=== PATIENT | female | born 1960 | race Caucasian/White ===

== ENCOUNTER 2021-05-19 19:15 | Inpatient (IN) | payer BC ==
[~2021-05-19] VITALS: Ht 162.6 cm; Wt 86.6 kg
[2021-05-19] MEDS ORDERED: ACETAMINOPHEN 325 MG TABLET PO PRN (19:45)
[2021-05-19] MEDS ORDERED: METHYL SALICYLATE/MENTHOL TOPICAL OINTMENT 57GM TUBE. TP PRN (19:45)
[2021-05-19] MEDS ORDERED: MAGNESIUM HYDROXIDE 2,400 MG/30 ML ORAL.SUSP. PO PRN (19:45)
[2021-05-19] MEDS ORDERED: MAG HYDROX/AL HYDROX/SIMETH 30 ML ORAL.SUSP PO PRN (19:45)
[2021-05-19 21:29] LABS: BASO % 0 % (0-3); EOS # 0.2 x10^3/uL (0.0-0.7); EOS % 3 % (0-3); HEMATOCRIT 36.8 % (36.0-47.0); HEMOGLOBIN 12.4 g/dL (12.0-15.5); LYMPH # 2.3 x10^3/uL (1.0-4.8); LYMPH % 29 % (24-48); MEAN CORPUSCULAR HEMOGLOBIN 32 pg (25-35); MEAN CORPUSCULAR HGB CONC 34 g/dL (31-37); MEAN CORPUSCULAR VOLUME 94 fL (79-100); MONO # 0.5 x10^3/uL (0.0-1.1); MONO % 6 % (0-9); NEUT # 4.9 x10^3uL (1.8-7.7); NEUT % 62 % (31-73); PLATELET COUNT 266 x10^3/uL (140-400); RED BLOOD COUNT 3.91 x10^6/uL (3.50-5.40); RED CELL DISTRIBUTION WIDTH 13.2 % (11.5-14.5); WHITE BLOOD COUNT 7.9 x10^3/uL (4.0-11.0)
--- NOTE | 2021-05-19 21:34 | EKG ---
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
[2021-05-19 21:42] LABS: ALBUMIN 3.5 g/dL (3.4-5.0); ALBUMIN/GLOBULIN RATIO 0.9 (1.0-1.7); CALCIUM 9.2 mg/dL (8.5-10.1); CREATININE 1.1 mg/dL (0.6-1.0); GFR 50.7; MAGNESIUM 2.2 mg/dL (1.8-2.4); POTASSIUM 4.1 mmol/L (3.5-5.1); TOTAL BILIRUBIN 0.6 mg/dL (0.2-1.0); TOTAL PROTEIN 7.2 g/dL (6.4-8.2)
[2021-05-19 22:25] VITALS: BP 152/71
[2021-05-19] MEDS ORDERED: DOXY100C3 PO (22:57)
[2021-05-20] MEDS ORDERED: LUMA42CA PO (01:53)
[2021-05-20] MEDS ORDERED: LURA20TA PO (01:53)
[2021-05-20] MEDS ORDERED: CARB1TAB22 PO (01:53)
[2021-05-20] MEDS ORDERED: PRIM50TA24 PO (01:53)
[2021-05-20] MEDS ORDERED: LAMO100T8 PO (01:53)
--- NOTE | 2021-05-20 05:35 | NUR ---
Admission Note with Justification for Admission to [facility] Patient admitted to [facility] for protective oversight for emergency stabilization of acute psychiatric crisis. Pt admitted from: Hospital ER Mode of arrival: EMS Accompanied By: [facility] Staff Precipitating behaviors that initiated intake and admission:Auditory hallucinations (command to harm self), SI attempt, depression, insomnia Description of failure of out patient attempts at stabilization in previous setting list behavior and medication trials: er, mental health evaluation Behaviors and assessment findings upon admission: Calm and cooperative, alert to name, date, location and situation, denies SI/HI/AVH. Pleasant during interactions with staff. Plan: Admit for protective oversight for adjustment and stabilization of medications, behaviors and mood. Intense treatment regimen including groups, medication adjustments, therapy, consistent regimen for ADL's, self care, and sleep hygiene. Daily monitoring by Inpatient staff, Psychiatry, and Medical Physician.
[2021-05-20 06:22] VITALS: BP 165/82
[2021-05-20 10:10] LABS: THYROXINE 10.5 ug/dL (4.5-12.0)
--- NOTE | 2021-05-20 10:22 | NUR ---
Pt has been present and visible on the unit. She appears and presents as well mannered so far today. Absent of SI/HI/VH/AH/delusions. She denies pain when asked. She is very concerned about taking her medications, however nursing needs to obtain med rec verification from her home pharmacy as well as review/continuation from Dr Concepcion during H&P prior to administration. Every time pt sees this nurse she asks about if I talked to pharmacy or the Dr crockett. She requires frequent reassurance regarding her medications. Pt has been absent of disruptive behavior on the unit and her interactions with others have been appropriate. Plan of care continues, will pass to next shift.
[2021-05-20] MEDS ORDERED: PROPRANOLOL PO (11:45)
[2021-05-20] MEDS ORDERED: ASEN10TA9 SL (11:46)
[2021-05-20 15:23] LABS: BILIRUBIN,URINE NEG (NEG); CLARITY,URINE CLEAR; COLOR,URINE YELLOW; GLUCOSE,URINE NEG (NEG); NITRITE,URINE NEG (NEG); UROBILINOGEN,URINE 0.2 mg/dL (0.2 mg/dL)
[2021-05-20 15:25] LABS: BACTERIA,URINE 0 /HPF (0-FEW); SQUAMOUS EPITHELIAL CELL,UR OCC /LPF
[2021-05-20 16:02] VITALS: BP 149/98
--- NOTE | 2021-05-20 17:39 | NUR ---
Pt arrived with a home bottle of Doxycycline 100 mg (18 tablets). Bottle bagged and sent to Pharmacy for holding.
[2021-05-20] MEDS: PRIMIDONE 50 MG TABLET PO SCH (19:50)
[2021-05-20] MEDS: lamoTRIgine 100 MG TABLET. PO SCH (19:50)
[2021-05-20] MEDS: CARBIDOPA/LEVODOPA 25/100MG TABLET PO SCH (19:50)
[2021-05-20] MEDS: DOXYCYCLINE HYCLATE 100 MG TABLET PO SCH (19:51)
[2021-05-20 20:23] LABS: THYROID STIM HORMONE (TSH) 1.27 uIU/mL (0.358-3.740)
[2021-05-20] MEDS: NON FORMULARY ITEM (Asenapine Maleate (Saphris) 10 MG) SL SCH (21:00)
--- NOTE | 2021-05-20 22:13 | PDOC ---
Exam Note: Bran Note: Please also refer to the separate dictated note~for this date of service dictated separately.~Patient seen individually. Discussed the patient with Nursing staff reviewed the chart.~Reviewed interim history and current functioning. Reviewed vital signs,~Labs/ Radiology~and current medications noted below. Continue current treatment with the changes noted in the dictated addendum note Assessment: Vital Signs/I&O: Vital Signs Date Time Temp Pulse Resp B/P (MAP) Pulse Ox O2 Delivery O2 Flow Rate FiO2 05/20/21 16:02 98.5 99 16 149/98 (115) 97 I & O 05/19/21 05/19/21 05/20/21 15:00 23:00 07:00 Intake Total 120 ml Balance 120 ml Labs: Laboratory Tests Test 05/20/21 14:57 Urine Collection Type Void Urine Color Yellow Urine Clarity Clear Urine pH 6.5 Urine Specific [place] 1.020 Urine Protein Neg (NEG-TRACE) Urine Glucose (UA) Neg mg/dL (NEG) Urine Ketones (Stick) Neg mg/dL (NEG) Urine Blood Small (NEG) Urine Nitrite Neg (NEG) Urine Bilirubin Neg (NEG) Urine Urobilinogen Dipstick 0.2 mg/dL (0.2 mg/dL) Urine Leukocyte Esterase Trace (NEG) Urine RBC 1-2 /HPF (0-2) Urine WBC 5-10 /HPF (0-4) Urine Squamous Epithelial Cells Occ /LPF Urine Bacteria 0 /HPF (0-FEW) Current Medications: Meds: Laboratory Tests Test 05/20/21 14:57 Urine Collection Type Void Urine Color Yellow Urine Clarity Clear Urine pH 6.5 Urine Specific [place] 1.020 Urine Protein Neg Urine Glucose (UA) Neg mg/dL Urine Ketones (Stick) Neg mg/dL Urine Blood Small Urine Nitrite Neg Urine Bilirubin Neg Urine Urobilinogen Dipstick 0.2 mg/dL Urine Leukocyte Esterase Trace Urine RBC 1-2 /HPF Urine WBC 5-10 /HPF Urine Squamous Epithelial Cells Occ /LPF Urine Bacteria 0 /HPF Current Medications Medications (Trade) Dose Ordered Sig/Ashley Route PRN Reason Start Time Stop Time Status Last Admin Dose Admin Acetaminophen (Tylenol) 650 mg PRN Q6HRS PRN PO MILD PAIN / TEMP > 100.3'F 05/19/21 19:45 Multi-Ingredient Ointment (Analgesic [place]) 1 rayo PRN QID PRN TP MUSCLE PAIN 05/19/21 19:45 Al Hydroxide/Mg Hydroxide (Mylanta Plus Xs) 15 ml PRN AFTMEALHC PRN PO DYSPEPSIA 05/19/21 19:45 Magnesium Hydroxide (Milk Of Magnesia) 2,400 mg PRN QHS PRN PO CONSTIPATION 05/19/21 19:45 05/19/21 23:53 Carbidopa/Levodopa (Sinemet 25/100) 0.5 tab TID PO 05/20/21 21:00 05/20/21 19:50 Lamotrigine (LaMICtal) 100 mg BID PO 05/20/21 21:00 05/20/21 19:50 Primidone (Mysoline) 100 mg QHS PO 05/20/21 21:00 05/20/21 19:50 Non-Formulary Medication (Asenapine Maleate (Saphris)) 10 mg BID SL 05/20/21 21:00 UNV Non-Formulary Medication (Lumateperone Tosylate (Caplyta)) 42 mg DAILY PO 05/21/21 09:00 UNV Lurasidone HCl (Latuda) 20 mg DAILYWBKFT PO 05/21/21 08:00 Non-Formulary Medication ([propranolol ER] ) 120 mg DAILY PO 05/21/21 09:00 UNV Doxycycline Hyclate (Vibra-Tab) 100 mg BID PO 05/20/21 21:00 05/20/21 19:51 Propranolol HCl (Inderal La) 120 mg DAILY PO 05/21/21 09:00 Current Medications Medications (Trade) Dose Ordered Sig/Ashley Route PRN Reason Start Time Stop Time Status Last Admin Dose Admin Carbidopa/Levodopa (Sinemet 25/100) 0.5 tab TID PO 05/20/21 21:00 05/20/21 19:50 Lamotrigine (LaMICtal) 100 mg BID PO 05/20/21 21:00 05/20/21 19:50 Primidone (Mysoline) 100 mg QHS PO 05/20/21 21:00 05/20/21 19:50 Doxycycline Hyclate (Vibra-Tab) 100 mg BID PO 05/20/21 21:00 05/20/21 19:51 I have reviewed the current psychotropics carefully including drug interactions. Risk benefit ratio favors no change other than as noted in my dictated progress note. MYNOR FABIAN MD May 20, 2021 22:13
--- NOTE | 2021-05-20 23:17 | HP ---
PSYCHIATRIC ADMISSION HISTORY AND EVALUATION I met with the patient evening of 05/19 for this evaluation. IDENTIFYING DATA: The patient is a 60-year-old female referred to us from [facility] after she presented there on account of auditory hallucinations including command hallucinations to harm herself. Reportedly, the patient had overdosed on medications in a suicide attempt. She had been depressed. She recently lost her spouse and wanted to be with him. She was having marked insomnia and had failed outpatient psychiatric treatment at the [facility] in [place]. She was evaluated by the [facility], was then referred to [facility], but was declined by them on account of her need for assistance with activities of daily living support. She had been an inpatient at [facility] in the past for psychiatric admission and at [facility]. She lives alone at home with family support. She has failed outpatient psychiatric intervention. Behavior is deemed dangerous, status post suicidal attempt and referred for inpatient psychiatric stabilization. CHIEF COMPLAINT: "The voices told me to take an overdose." HISTORY OF PRESENT ILLNESS: The patient reportedly has a prior diagnosis of major depressive disorder with psychotic features. She has had at least two inpatient psychiatric hospitalizations as noted above and now overdosed in a suicide attempt. She admits to feeling helpless, hopeless, worthless with marked insomnia, command hallucinations. No homicidal ideation. She does have mood swings and past records will be obtained to corroborate diagnosis. PAST PSYCHIATRIC HISTORY: As above. MEDICAL HISTORY: Positive for Parkinson's disease, hyperlipidemia, frequent falls, recurrent UTIs. CODE STATUS: Full code. DRUG ALLERGIES: Negative. ACCU-CHEKS: None. DIET: Regular. Takes medications whole. Ambulates independently. CURRENT PSYCHOTROPICS: Saphris 10 mg sublingual b.i.d. She is on Sinemet for her Parkinson's, Wellbutrin-XL, lamotrigine 100 mg twice a day, extended release and in the past had been on primidone and Latuda. FAMILY HISTORY: Noncontributory. SOCIAL HISTORY: As noted above. No alcohol, drug abuse, physical, sexual or elder abuse history is noted. She is not known to be a perpetrator. REACTION TO HOSPITALIZATION: The patient accepting of it. ASSETS: Supportive family. She has a home she lives in. REVIEW OF SYSTEMS: Positive for the parkinsonian tremors. No CV, , pulmonary, eye, ENT system symptoms on review. MENTAL STATUS EXAMINATION: I met with her at length in the dayroom evening of 05/19. She is oriented to herself, situation. Speech is coherent. Abstraction fair. Computation impaired. Language function intact. Attention span short. She appeared somewhat distractable depressed, anxious, paranoid. No active suicidal or homicidal ideation. Attention span is short. IMPRESSION: Major depressive disorder with psychotic features. Rule out bipolar disorder, mixed episode with psychotic features; anxiety disorder, unspecified. Rest as above. PLAN: Admit to Geropsychiatry Unit at [facility]. I will see the patient daily individually from a psychiatric standpoint. Medical followup with Dr. Concepcion/Dr. Bajwa. Continue current psychotropics. We do not have her antipsychotic available at the hospital. We will check an EKG and if QT corrected interval is unremarkable, we will start her on Geodon. Get the past records as noted above. Gradually increase lamotrigine and depending on further clarification of diagnosis, either adjust the Wellbutrin or consider an SSRI or SNRI. If history of mood swings is evident, may consider treatment on Depakote as a mood stabilizer. ESTIMATED LENGTH OF STAY: 10-12 days. DISPOSITION PLAN: Back [facility]12 days when she is stable. MARGIE/BRODIE DR: Karie TID: [id number]
[2021-05-21 00:07] LABS: HEMOGLOBIN A1C 5.3 % (4.8-5.6)
--- NOTE | 2021-05-21 02:30 | NUR ---
Nursing Note The patient was located in the day room for her assessment and medication pass. The patient was compliant with medications and took them whole. The patient was alert to name, date, location and situation. The patient was inquisitive about her medications. The patient is currently sleeping in her room.
[2021-05-21 06:24] VITALS: BP 125/70
--- NOTE | 2021-05-21 08:13 | PDOC ---
Exam Note: Bran Note: This note is a late entry for 05/20/2021 covers elements not covered in my initial note. Subjective: The patient was seen individually in the evening of 05/20/2021 with Hina NAVARRO, discussed and reviewed the chart. The patient slept 5 hours previous night. She has denied active suicidal ideation but remains depressed. This was per nursing report. However, when I met with her in the evening she said she was still hearing voices at times but again denied active suicidal ideation. She has been well oriented. She had many questions about her diagnoses, medications and we addressed at length. Saphris is not available at the hospital which is what she was taking prior to admission and we will do EKG to make sure corrected QT interval is unremarkable before starting her on Geodon as an antipsychotic. In the meantime she remains on Lamotrigine 100 mg twice a day, extended release and we may need to increase this as well. We will consult Dr. Raygoza, Neurology to evaluate her Parkinsons medications. Adjust the dosage lower to help propensity for hallucinations if this is possible. Review of Systems: Positive for Parkinsons tremors. No CV, , pulmonary, eye, ENT system symptoms on review. Mental Status Exam: The patient is reasonably oriented. Speech is coherent some latency. Abstraction fair. Computation impaired. Language function intact. Attention span short. Mood and affect depressed. Laboratory Data: Reviewed. Impression: Major depressive disorder with psychotic features. Bipolar disorder, mixed with psychotic features. Anxiety disorder unspecified. Parkinsons disease. Psychotic disorder unspecified. Plan: Check an EKG as above. Start Geodon once EKG is noted to be unremarkable. Get past psychiatric records. Consider increasing Lamotrigine. Make further adjustments as clinically indicated. Consult Dr. Raygoza, Neurology. Assessment: Vital Signs/I&O: Vital Signs Date Time Temp Pulse Resp B/P (MAP) Pulse Ox O2 Delivery O2 Flow Rate FiO2 05/21/21 06:24 97.9 73 20 125/70 (88) 98 Room Air I & O 05/20/21 05/20/21 05/21/21 14:59 22:59 06:59 Intake Total 600 ml 480 ml Balance 600 ml 480 ml Labs: Laboratory Tests Test 05/20/21 14:57 Urine Collection Type Void Urine Color Yellow Urine Clarity Clear Urine pH 6.5 Urine Specific [place] 1.020 Urine Protein Neg (NEG-TRACE) Urine Glucose (UA) Neg mg/dL (NEG) Urine Ketones (Stick) Neg mg/dL (NEG) Urine Blood Small (NEG) Urine Nitrite Neg (NEG) Urine Bilirubin Neg (NEG) Urine Urobilinogen Dipstick 0.2 mg/dL (0.2 mg/dL) Urine Leukocyte Esterase Trace (NEG) Urine RBC 1-2 /HPF (0-2) Urine WBC 5-10 /HPF (0-4) Urine Squamous Epithelial Cells Occ /LPF Urine Bacteria 0 /HPF (0-FEW) Current Medications: Meds: Current Medications Medications (Trade) Dose Ordered Sig/Ashley Route PRN Reason Start Time Stop Time Status Last Admin Dose Admin Carbidopa/Levodopa (Sinemet 25/100) 0.5 tab TID PO 05/20/21 21:00 05/20/21 19:50 Lamotrigine (LaMICtal) 100 mg BID PO 05/20/21 21:00 05/20/21 19:50 Primidone (Mysoline) 100 mg QHS PO 05/20/21 21:00 05/20/21 19:50 Doxycycline Hyclate (Vibra-Tab) 100 mg BID PO 05/20/21 21:00 05/20/21 19:51 I have reviewed the current psychotropics carefully including drug interactions. Risk benefit ratio favors no change other than as noted in my dictated progress note. Diagnosis: Problems: (1) Major depressive disorder with psychotic features (2) Anxiety disorder, unspecified (3) Bipolar disorder, current episode mixed, severe, with psychotic features (4) Psychotic disorder (5) Parkinson's disease MYNOR FABIAN MD May 21, 2021 08:13
--- NOTE | 2021-05-21 08:14 | PDOC ---
Exam Note: Bran Note: Late entry for 05/19/2021. Please also refer to the separate dictated note~for this date of service dictated separately.~Patient seen individually. Discussed the patient with Nursing staff reviewed the chart.~Reviewed interim history and current functioning. Reviewed vital signs,~Labs/ Radiology~and current medic ations noted below. Continue current treatment with the changes noted in the dictated addendum note Assessment: Vital Signs/I&O: Vital Signs Date Time Temp Pulse Resp B/P (MAP) Pulse Ox O2 Delivery O2 Flow Rate FiO2 05/21/21 06:24 97.9 73 20 125/70 (88) 98 Room Air I & O 05/20/21 05/20/21 05/21/21 15:00 23:00 07:00 Intake Total 600 ml 480 ml Balance 600 ml 480 ml Labs: Laboratory Tests Test 05/20/21 14:57 Urine Collection Type Void Urine Color Yellow Urine Clarity Clear Urine pH 6.5 Urine Specific [place] 1.020 Urine Protein Neg (NEG-TRACE) Urine Glucose (UA) Neg mg/dL (NEG) Urine Ketones (Stick) Neg mg/dL (NEG) Urine Blood Small (NEG) Urine Nitrite Neg (NEG) Urine Bilirubin Neg (NEG) Urine Urobilinogen Dipstick 0.2 mg/dL (0.2 mg/dL) Urine Leukocyte Esterase Trace (NEG) Urine RBC 1-2 /HPF (0-2) Urine WBC 5-10 /HPF (0-4) Urine Squamous Epithelial Cells Occ /LPF Urine Bacteria 0 /HPF (0-FEW) Current Medications: Meds: Laboratory Tests Test 05/20/21 14:57 Urine Collection Type Void Urine Color Yellow Urine Clarity Clear Urine pH 6.5 Urine Specific [place] 1.020 Urine Protein Neg Urine Glucose (UA) Neg mg/dL Urine Ketones (Stick) Neg mg/dL Urine Blood Small Urine Nitrite Neg Urine Bilirubin Neg Urine Urobilinogen Dipstick 0.2 mg/dL Urine Leukocyte Esterase Trace Urine RBC 1-2 /HPF Urine WBC 5-10 /HPF Urine Squamous Epithelial Cells Occ /LPF Urine Bacteria 0 /HPF Current Medications Medications (Trade) Dose Ordered Sig/Ashley Route PRN Reason Start Time Stop Time Status Last Admin Dose Admin Acetaminophen (Tylenol) 650 mg PRN Q6HRS PRN PO MILD PAIN / TEMP > 100.3'F 05/19/21 19:45 Multi-Ingredient Ointment (Analgesic [place]) 1 rayo PRN QID PRN TP MUSCLE PAIN 05/19/21 19:45 Al Hydroxide/Mg Hydroxide (Mylanta Plus Xs) 15 ml PRN AFTMEALHC PRN PO DYSPEPSIA 05/19/21 19:45 Magnesium Hydroxide (Milk Of Magnesia) 2,400 mg PRN QHS PRN PO CONSTIPATION 05/19/21 19:45 05/19/21 23:53 Carbidopa/Levodopa (Sinemet 25/100) 0.5 tab TID PO 05/20/21 21:00 05/20/21 19:50 Lamotrigine (LaMICtal) 100 mg BID PO 05/20/21 21:00 05/20/21 19:50 Primidone (Mysoline) 100 mg QHS PO 05/20/21 21:00 05/20/21 19:50 Non-Formulary Medication (Asenapine Maleate (Saphris)) 10 mg BID SL 05/20/21 21:00 UNV Non-Formulary Medication (Lumateperone Tosylate (Caplyta)) 42 mg DAILY PO 05/21/21 09:00 UNV Lurasidone HCl (Latuda) 20 mg DAILYWBKFT PO 05/21/21 08:00 Non-Formulary Medication ([propranolol ER] ) 120 mg DAILY PO 05/21/21 09:00 UNV Doxycycline Hyclate (Vibra-Tab) 100 mg BID PO 05/20/21 21:00 05/20/21 19:51 Propranolol HCl (Inderal La) 120 mg DAILY PO 05/21/21 09:00 Lactobacillus Rhamnosus (Culturelle) 1 cap BID PO 05/21/21 09:00 Current Medications Medications (Trade) Dose Ordered Sig/Ashley Route PRN Reason Start Time Stop Time Status Last Admin Dose Admin Carbidopa/Levodopa (Sinemet 25/100) 0.5 tab TID PO 05/20/21 21:00 05/20/21 19:50 Lamotrigine (LaMICtal) 100 mg BID PO 05/20/21 21:00 05/20/21 19:50 Primidone (Mysoline) 100 mg QHS PO 05/20/21 21:00 05/20/21 19:50 Doxycycline Hyclate (Vibra-Tab) 100 mg BID PO 05/20/21 21:00 05/20/21 19:51 I have reviewed the current psychotropics carefully including drug interactions. Risk benefit ratio favors no change other than as noted in my dictated progress note. Diagnosis: Problems: (1) Anxiety disorder, unspecified (2) Major depressive disorder with psychotic features (3) Bipolar disorder, current episode mixed, severe, with psychotic features (4) Psychotic disorder (5) Parkinson's disease MYNOR FABIAN MD May 21, 2021 08:14
[2021-05-21] MEDS: LACTOBACILLUS RHAMNOSUS GG 1 CAPSULE. PO SCH ×2 (08:24→20:42)
[2021-05-21] MEDS: LURASIDONE 40 MG TABLET. PO SCH (08:25)
[2021-05-21] MEDS: DOXYCYCLINE HYCLATE 100 MG TABLET PO SCH ×2 (08:25→20:43)
[2021-05-21] MEDS: PROPRANOLOL ER 60 MG CAP.SA.24H. PO SCH (08:25)
[2021-05-21] MEDS: lamoTRIgine 100 MG TABLET. PO SCH ×2 (08:25→20:41)
[2021-05-21] MEDS: CARBIDOPA/LEVODOPA 25/100MG TABLET PO SCH ×3 (08:26→20:43)
[2021-05-21] MEDS: LUMATEPERONE TOSYLATE 42 MG PO SCH (09:00)
[2021-05-21] MEDS: NON FORMULARY ITEM (Asenapine Maleate (Saphris) 10 MG) SL SCH ×2 (09:00→20:44)
[2021-05-21] MEDS ORDERED: PROPRANOLOL 120 MG PO SCH (09:00)
--- NOTE | 2021-05-21 11:34 | EKG ---
[address] [address] Test Date: 2021-05-21 Test Time: 11:26:46 Pat Name: MODESTA BLANCO Department: Room: [address] [place] [address] Gender: F Senior Linux Systems Engineer: : 1960 Requested By: MYNOR FABIAN Order Number: [id number] Reading MD: Measurements Intervals [place] Rate: 79 P: 90 NE: 138 QRS: 21 QRSD: 82 T: 51 QT: 380 QTc: 437 Interpretive Statements SINUS RHYTHM NO SPECIFIC ECG ABNORMALITIES RI6.01 Compared to ECG 05/19/2021 21:26:41 Supraventricular rhythm no longer present Left-axis deviation no longer present T-wave abnormality no longer present Possible ischemia no longer present
--- NOTE | 2021-05-21 12:26 | NUR ---
WEEKLY ACTIVITY THERAPY NOTE Date of Admission: 05/20/2021 Date of AT Assessment: TBD Precipitating behaviors that initiated intake and admission: Auditory hallucinations (command to harm self), SI attempt, depression, insomnia Goal aimed: TBD Initial Goal: TBD Weekly progress towards goal: NA Group participation level: Weekly highlights: arrived on unit Behaviors observed: Plan: meet/ assess Pt Beneficial adaptations: TBD
--- NOTE | 2021-05-21 14:01 | NUR ---
MONE returned call to pt dtr, Awilda, who wanted to schedule a visit for this weekend. MONE was able to give Awilda an update on how pt is doing and informed her that MONE will plan to meet more in depth with pt later this afternoon.
[2021-05-21 15:51] VITALS: BP 132/73
--- NOTE | 2021-05-21 16:46 | NUR ---
Treatment team note: Pt is eating and sleeping well; no hours are noted on the report sheet. Pt is A/O x 4, calm and compliant with staff direction. Pt is fixated on making sure her medications are verified through the pharmacy. Pt is not voicing any SI thoughts and states that she is hearing voices but the good voices and not the bad ones. Pt will need an EKG and request for records sent to [place] [facility]. Pt is a self-sign and SW will work with pt on all discharge arrangements. ELOS 10-14 days.
--- NOTE | 2021-05-21 18:30 | NUR ---
Patient has been calm, compliant, and social throughout this shift. She denies SI, states she only hears 'good voices'. She is interactive with peers and staff, and participated in multiple group activities. Will continue to monitor and report to oncoming shift.
[2021-05-21] MEDS: PRIMIDONE 50 MG TABLET PO SCH (20:42)
[2021-05-21] MEDS: ZIPRASIDONE 20 MG CAPSULE. PO SCH (20:43)
--- NOTE | 2021-05-21 22:09 | PDOC ---
Exam Note: Bran Note: Please also refer to the separate dictated note~for this date of service dictated separately.~Patient seen individually. Discussed the patient with Nursing staff reviewed the chart.~Reviewed interim history and current functioning. Reviewed vital signs,~Labs/ Radiology~and current medications noted below. Continue current treatment with the changes noted in the dictated addendum note Assessment: Vital Signs/I&O: Vital Signs Date Time Temp Pulse Resp B/P (MAP) Pulse Ox O2 Delivery O2 Flow Rate FiO2 05/21/21 15:51 97.8 69 20 132/73 (92) 94 05/21/21 06:24 Room Air I & O 05/20/21 05/20/21 05/21/21 15:00 23:00 07:00 Intake Total 600 ml 480 ml Balance 600 ml 480 ml Current Medications: Meds: Current Medications Medications (Trade) Dose Ordered Sig/Ashley Route PRN Reason Start Time Stop Time Status Last Admin Dose Admin Acetaminophen (Tylenol) 650 mg PRN Q6HRS PRN PO MILD PAIN / TEMP > 100.3'F 05/19/21 19:45 Multi-Ingredient Ointment (Analgesic [place]) 1 rayo PRN QID PRN TP MUSCLE PAIN 05/19/21 19:45 Al Hydroxide/Mg Hydroxide (Mylanta Plus Xs) 15 ml PRN AFTMEALHC PRN PO DYSPEPSIA 05/19/21 19:45 Magnesium Hydroxide (Milk Of Magnesia) 2,400 mg PRN QHS PRN PO CONSTIPATION 05/19/21 19:45 05/19/21 23:53 Carbidopa/Levodopa (Sinemet 25/100) 0.5 tab TID PO 05/20/21 21:00 05/21/21 20:43 Lamotrigine (LaMICtal) 100 mg BID PO 05/20/21 21:00 05/21/21 20:41 Primidone (Mysoline) 100 mg QHS PO 05/20/21 21:00 05/21/21 20:42 Non-Formulary Medication (Asenapine Maleate (Saphris)) 10 mg BID SL 05/20/21 21:00 UNV Non-Formulary Medication (Lumateperone Tosylate (Caplyta)) 42 mg DAILY PO 05/21/21 09:00 UNV Lurasidone HCl (Latuda) 20 mg DAILYWBKFT PO 05/21/21 08:00 05/21/21 08:25 Non-Formulary Medication ([propranolol ER] ) 120 mg DAILY PO 05/21/21 09:00 UNV Doxycycline Hyclate (Vibra-Tab) 100 mg BID PO 05/20/21 21:00 05/29/21 09:01 05/21/21 20:43 Propranolol HCl (Inderal La) 120 mg DAILY PO 05/21/21 09:00 05/21/21 08:25 Lactobacillus Rhamnosus (Culturelle) 1 cap BID PO 05/21/21 09:00 05/21/21 20:42 Ziprasidone (Geodon) 20 mg BID PO 05/21/21 21:00 05/21/21 20:43 Vitamin D (Vitamin D3) 50,000 unit WEEKLY PO 05/28/21 09:00 Cyanocobalamin (Vitamin B-12) 1,000 mcg Q4WK IM 05/22/21 09:00 Current Medications Medications (Trade) Dose Ordered Sig/Ashley Route PRN Reason Start Time Stop Time Status Last Admin Dose Admin Lurasidone HCl (Latuda) 20 mg DAILYWBKFT PO 05/21/21 08:00 05/21/21 08:25 Propranolol HCl (Inderal La) 120 mg DAILY PO 05/21/21 09:00 05/21/21 08:25 Lactobacillus Rhamnosus (Culturelle) 1 cap BID PO 05/21/21 09:00 05/21/21 20:42 Ziprasidone (Geodon) 20 mg BID PO 05/21/21 21:00 05/21/21 20:43 I have reviewed the current psychotropics carefully including drug interactions. Risk benefit ratio favors no change other than as noted in my dictated progress note. Diagnosis: Problems: (1) Anxiety disorder, unspecified (2) Major depressive disorder with psychotic features (3) Bipolar disorder, current episode mixed, severe, with psychotic features (4) Psychotic disorder (5) Parkinson's disease MYNOR FABIAN MD May 21, 2021 22:09
--- NOTE | 2021-05-21 22:53 | NUR ---
Patient is in the day room on assumption of care, eating a snack at the table. She is pleasant, calm, cooperative. A/O x4. Compliant with assessments and medications taken whole. She denies hearing any voices so far this shift. No agitation. Patient denies any pain or discomfort. She appears to be sleeping comfortably at present time. Will continue to monitor.
--- NOTE | 2021-05-22 02:50 | CONS ---
DATE OF CONSULTATION: 05/21/2021 CONSULTATION FOR MEDICAL MANAGEMENT HISTORY OF PRESENT ILLNESS: The patient is a 60-year-old female patient who was referred [facility] from [facility] after she presented there on account of auditory hallucinations including command hallucinations to harm herself. Reportedly, the patient has overdosed on medication in a suicidal attempt. She has been depressed. She has recently lost her spouse and wanted to be with him. She was having marked insomnia and had failed outpatient psychiatric stabilization at the [facility] in [place]. She was referred to [facility], but was declined by them on account of her need for assistance with activities of daily living support. She had been an inpatient at [facility] in the past for psychiatric admission. She was also admitted to [facility]. She apparently lives alone at home with family support as she has failed outpatient psychiatric intervention and her behavior is deemed dangerous, status post suicidal attempt and she was admitted to this unit for inpatient psychiatric stabilization. PAST MEDICAL HISTORY: Medically, the patient apparently is known to have drug-induced Parkinson's disease, hyperlipidemia, benign essential familial tremors, has frequent falls and recurrent UTIs. PAST SURGICAL HISTORY: Significant for 4 C-sections and tonsillectomy. ALLERGIES: She has no known drug allergies. FAMILY HISTORY: Noncontributory. SOCIAL HISTORY: She is . Her recently. She has 2 daughters and 2 sons. She does not smoke, drink alcohol or use any recreational drugs. 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 MEDICATIONS: She is currently on the following medication: She is on ziprasidone 20 mg twice a day, Lactobacillus rhamnosus 1 capsule twice a day, propranolol 120 mg daily. She is on Latuda 20 mg with breakfast, doxycycline 100 mg twice a day. She is also on Saphris 10 mg twice a day, primidone 100 mg at bedtime, lamotrigine 100 mg twice a day, carbidopa/levodopa 25/100 half a tablet 3 times a day. She is on milk of magnesia 30 mL p.o. daily p.r.n. for constipation, Mylanta 15 mL after meals and as needed and acetaminophen 650 mg p.o. every 6 hours as needed. PHYSICAL EXAMINATION: GENERAL: When I examined her this afternoon, she was sitting comfortably in her chair in no apparent respiratory distress. No pallor, jaundice, cyanosis. No lymphadenopathy, no thyromegaly, no jugular venous distention. No lower limb edema. VITAL SIGNS: Her heart rate was 69, blood pressure was 132/73, temperature 97.8, respiratory rate 20, and oxygen saturation was 94% on room air. HEAD, EYES, EARS, NOSE AND THROAT: Showed she is normocephalic, atraumatic. NECK: Supple. HEART: Showed normal first and second heart sounds, no gallop, rub or murmur. CHEST: Clear to auscultation. No crepitation or rhonchi. ABDOMEN: Distended, soft, nontender. NEUROLOGIC: She is awake, alert, responding appropriately. All her cranial nerves are intact. She moves extremities without difficulty. She ambulates without assistance or assistive devices. LABORATORY DATA: Showed a white cell count of 7900, hemoglobin 12, hematocrit 36, MCV 94 and platelet count 266,000 with a normal manual differential. Her D-dimer was slightly elevated at 0.94 mg per liter. Her chemistry showed a serum sodium of 143, potassium 4.1, chloride 106, bicarbonate 26, anion gap of 11, BUN 20, creatinine 1.1. Estimated GFR was 50 mL per minute. Her glucose 112,. Her calcium was 9.2, magnesium was 2.2. Total bilirubin, AST, ALT, alkaline phosphatase were normal. Total protein was 7.2, albumin was 3.5. Her serum iron, TIBC and iron saturation are all consistent with adequate iron stores. Her hemoglobin A1c was 5.3%. Her serum triglycerides was 99, total cholesterol 224, LDL was 138, VLDL was 19, HDL was 67, and the ratio was 3. Her vitamin B12 was low at 263 and 25-hydroxy vitamin D was also low at 15. Her TSH was normal at 1.270 and her total T4 and total T3 are all normal at 10.5 and 90 respectively. Her urinalysis was essentially unremarkable, was negative for nitrite. There was trace of leukocyte esterase, 1-2 rbc's, 5-10 wbc's and no bacteria. Her treponema pallidum antibodies were nonreactive. ASSESSMENT AND PLAN: In summary, this is a 60-year-old female patient who was admitted as a referral from [facility] on account of auditory hallucinations including command hallucination. She apparently has had overdosed on medication in a suicidal attempt. Medically, the patient has Parkinson's disease, hyperlipidemia, benign essential familial tremors. Her lab work was mostly well within normal range except for the fact that she has borderline low vitamin B12 and also vitamin D. I will start her on vitamin D3 and also vitamin B12. Other than that, the patient seems to be generally medically stable. Her blood pressure and all her vital signs are within normal range and all her medications seem to be appropriate. Thank you, Dr. Reese, for allowing me to participate in the care of this patient. CLARE DR: Ifeanyi TID: [id number]
[2021-05-22 06:20] VITALS: BP 144/81
[2021-05-22] MEDS: LACTOBACILLUS RHAMNOSUS GG 1 CAPSULE. PO SCH ×2 (07:48→20:30)
[2021-05-22] MEDS: DOXYCYCLINE HYCLATE 100 MG TABLET PO SCH ×2 (07:48→20:30)
[2021-05-22] MEDS: ZIPRASIDONE 20 MG CAPSULE. PO SCH ×2 (07:48→20:31)
[2021-05-22] MEDS: CARBIDOPA/LEVODOPA 25/100MG TABLET PO SCH ×3 (07:48→20:30)
[2021-05-22] MEDS: lamoTRIgine 100 MG TABLET. PO SCH ×2 (07:48→20:30)
[2021-05-22] MEDS: PROPRANOLOL ER 60 MG CAP.SA.24H. PO SCH (07:49)
[2021-05-22] MEDS: LURASIDONE 40 MG TABLET. PO SCH (07:52)
[2021-05-22] MEDS: LUMATEPERONE TOSYLATE 42 MG PO SCH (07:52)
[2021-05-22] MEDS: NON FORMULARY ITEM (Asenapine Maleate (Saphris) 10 MG) SL SCH ×2 (07:53→20:32)
[2021-05-22] MEDS ORDERED: CYANOCOBALAMIN (VITAMIN B-12) 1,000 MCG/ML VIAL. IM SCH (09:00)
--- NOTE | 2021-05-22 13:04 | NUR ---
ACTIVITY THERAPY ASSESSMENT completed based on notes, observation and interview. Pt was sitting in the day room amongst peers. Pt was pleasant and calm during time of assessment. AT explained that groups are offered on [facility] and pt expressed her interest. AT then asked pt what activities she enjoys. Pt likes exercise, walking with her daughters, visiting care centers, gospel music, singing in alevism, and country music(Zulema Rivera and Murtaza Isidro). Pt was able to answer orientation questions without error. AT asked pt what brought her to [facility] and she said that she overdosed. AT then asked pt about her family and she said that she was for 37 years. Pt said that her almost a year ago, she said she is coping okay from his . Pt said that she had four children, two sons and two daughters. Pt said that she is still in good contact with them. AT asked pt if she reports any stress at this time and she said that one of the voices is telling her to commit suicide. AT asked pt how often she hears these voices and she said most of the time. AT asked if there were multiple voices and she said there was a man and a woman. Pt said that she damián with the voices by watching TV. AT then asked pt if she can ambulate well or if she has any pain. Pt said that she move around well but she is experiencing pain in the back of her head. AT asked pt about her current living arrangements and she said that she lives at home with her children. Per notes pt has been calm and compliant with staff members. AT reported findings discussed in pt's assessment. Initial goal aimed to support socialization and engagement. Pt will participate in at least five group Activity Therapy sessions per week. Addendum: 05/28/21 at 1249 by ARACELIS MONAHAN ACT Goal changed 05/28:Pt will participate in all Activity Therapy groups offered
--- NOTE | 2021-05-22 13:11 | NUR ---
Nurse Note Patient says she was hearing voices this mornig telling her to kill herself. Patient was calm when making statement. Patient redirected and socializing with other patients. She is calm , cooperative medication compliant. Patient has been visible and present on the unit at this time after lunch she has not heard any voices in her head.
[2021-05-22 15:57] VITALS: BP 134/89
[2021-05-22] MEDS: PRIMIDONE 50 MG TABLET PO SCH (20:31)
--- NOTE | 2021-05-22 21:59 | PDOC ---
Exam Note: Bran Note: Please also refer to the separate dictated note~for this date of service dictated separately.~Patient seen individually. Discussed the patient with Nursing staff reviewed the chart.~Reviewed interim history and current functioning. Reviewed vital signs,~Labs/ Radiology~and current medications noted below. Continue current treatment with the changes noted in the dictated addendum note Assessment: Vital Signs/I&O: Vital Signs Date Time Temp Pulse Resp B/P (MAP) Pulse Ox O2 Delivery O2 Flow Rate FiO2 05/22/21 15:57 96.8 59 18 134/89 (104) 96 05/21/21 06:24 Room Air I & O 05/21/21 05/21/21 05/22/21 15:00 23:00 07:00 Intake Total 480 ml 720 ml Balance 480 ml 720 ml Current Medications: Meds: Current Medications Medications (Trade) Dose Ordered Sig/Ashley Route PRN Reason Start Time Stop Time Status Last Admin Dose Admin Acetaminophen (Tylenol) 650 mg PRN Q6HRS PRN PO MILD PAIN / TEMP > 100.3'F 05/19/21 19:45 Multi-Ingredient Ointment (Analgesic [place]) 1 rayo PRN QID PRN TP MUSCLE PAIN 05/19/21 19:45 Al Hydroxide/Mg Hydroxide (Mylanta Plus Xs) 15 ml PRN AFTMEALHC PRN PO DYSPEPSIA 05/19/21 19:45 Magnesium Hydroxide (Milk Of Magnesia) 2,400 mg PRN QHS PRN PO CONSTIPATION 05/19/21 19:45 05/19/21 23:53 Carbidopa/Levodopa (Sinemet 25/100) 0.5 tab TID PO 05/20/21 21:00 05/22/21 20:30 Lamotrigine (LaMICtal) 100 mg BID PO 05/20/21 21:00 05/22/21 20:30 Primidone (Mysoline) 100 mg QHS PO 05/20/21 21:00 05/22/21 20:31 Non-Formulary Medication (Asenapine Maleate (Saphris)) 10 mg BID SL 05/20/21 21:00 UNV Non-Formulary Medication (Lumateperone Tosylate (Caplyta)) 42 mg DAILY PO 05/21/21 09:00 UNV Lurasidone HCl (Latuda) 20 mg DAILYWBKFT PO 05/21/21 08:00 05/22/21 17:21 DC 05/21/21 08:25 Non-Formulary Medication ([propranolol ER] ) 120 mg DAILY PO 05/21/21 09:00 UNV Doxycycline Hyclate (Vibra-Tab) 100 mg BID PO 05/20/21 21:00 05/29/21 09:01 05/22/21 20:30 Propranolol HCl (Inderal La) 120 mg DAILY PO 05/21/21 09:00 05/22/21 07:49 Lactobacillus Rhamnosus (Culturelle) 1 cap BID PO 05/21/21 09:00 05/22/21 20:30 Ziprasidone (Geodon) 20 mg BID PO 05/21/21 21:00 05/22/21 20:31 Vitamin D (Vitamin D3) 50,000 unit WEEKLY PO 05/28/21 09:00 Cyanocobalamin (Vitamin B-12) 1,000 mcg Q4WK IM 05/22/21 09:00 05/22/21 11:01 Current Medications Medications (Trade) Dose Ordered Sig/Ashley Route PRN Reason Start Time Stop Time Status Last Admin Dose Admin Cyanocobalamin (Vitamin B-12) 1,000 mcg Q4WK IM 05/22/21 09:00 05/22/21 11:01 I have reviewed the current psychotropics carefully including drug interactions. Risk benefit ratio favors no change other than as noted in my dictated progress note. Diagnosis: Problems: (1) Anxiety disorder, unspecified (2) Major depressive disorder with psychotic features (3) Bipolar disorder, current episode mixed, severe, with psychotic features (4) Psychotic disorder (5) Parkinson's disease MYNOR FABIAN MD May 22, 2021 21:59
[2021-05-23 05:50] VITALS: BP 107/69
[2021-05-23] MEDS: DOXYCYCLINE HYCLATE 100 MG TABLET PO SCH ×2 (08:22→20:04)
[2021-05-23] MEDS: LACTOBACILLUS RHAMNOSUS GG 1 CAPSULE. PO SCH ×2 (08:23→20:03)
[2021-05-23] MEDS: lamoTRIgine 100 MG TABLET. PO SCH ×2 (08:23→20:04)
[2021-05-23] MEDS: CARBIDOPA/LEVODOPA 25/100MG TABLET PO SCH ×3 (08:23→20:04)
[2021-05-23] MEDS: ZIPRASIDONE 20 MG CAPSULE. PO SCH ×2 (08:23→20:03)
--- NOTE | 2021-05-23 08:48 | PDOC ---
Exam Note: Bran Note: This note is a late entry for 05/21/2021 covers elements not covered in my initial note. Subjective: The patient was seen individually in the morning of 05/21/2021 for a treatment team meeting with Charlette Hill, Jaleesa Treviño (mental health social worker), Shana, activity therapy and Vik NAVARRO, discussed and reviewed the chart. Discussed her progress, current psychotropics, reviewed drug interactions, risk-benefit ratio. The patient slept 7-1/4 hours previous night. Appetite is fair. We did do the patients EKG, corrected QT interval is 437. This was done in preparation for starting Geodon as an antipsychotic and we will initiate 20 mg b.i.d. UA has reflex to culture. She continues to have some intermittent hallucinations. She was seen by Dr. Raygoza, Neurology and we will await recommendations from Dr. Raygoza. Review of Systems: Positive for Parkinsons tremors. No CV, , pulmonary, eye, ENT system symptoms on review. Mental Status Exam: The patient is reasonably oriented. Speech is coherent, quite animated. I met with her in the dayroom in the evening. Abstraction fair. Computation impaired. Language function intact, somewhat distractible. No suicidal or homicidal ideation. Laboratory Data: Reviewed. Impression: Major depressive disorder with psychotic features. Bipolar disorder, mixed with psychotic features. Anxiety disorder unspecified. Parkinsons disease. Psychotic disorder unspecified. Plan: Treat the UTI once the culture & sensitivity returns. Start Geodon as above. She has been started on Primidone per Dr. Raygoza. We will leave further neurological recommendations with Dr. Raygoza. Adjust further as clinically indicated. Assessment: Vital Signs/I&O: Vital Signs Date Time Temp Pulse Resp B/P (MAP) Pulse Ox O2 Delivery O2 Flow Rate FiO2 05/23/21 05:50 96.7 61 18 107/69 (82) 99 Room Air I & O 05/22/21 05/22/21 05/23/21 15:00 23:00 07:00 Intake Total 600 ml 360 ml 360 ml Balance 600 ml 360 ml 360 ml Current Medications: Meds: Current Medications Medications (Trade) Dose Ordered Sig/Ashley Route PRN Reason Start Time Stop Time Status Last Admin Dose Admin Acetaminophen (Tylenol) 650 mg PRN Q6HRS PRN PO MILD PAIN / TEMP > 100.3'F 05/19/21 19:45 Multi-Ingredient Ointment (Analgesic [place]) 1 rayo PRN QID PRN TP MUSCLE PAIN 05/19/21 19:45 Al Hydroxide/Mg Hydroxide (Mylanta Plus Xs) 15 ml PRN AFTMEALHC PRN PO DYSPEPSIA 05/19/21 19:45 Magnesium Hydroxide (Milk Of Magnesia) 2,400 mg PRN QHS PRN PO CONSTIPATION 05/19/21 19:45 05/19/21 23:53 Carbidopa/Levodopa (Sinemet 25/100) 0.5 tab TID PO 05/20/21 21:00 05/23/21 08:23 Lamotrigine (LaMICtal) 100 mg BID PO 05/20/21 21:00 05/23/21 08:23 Primidone (Mysoline) 100 mg QHS PO 05/20/21 21:00 05/22/21 20:31 Non-Formulary Medication (Asenapine Maleate (Saphris)) 10 mg BID SL 05/20/21 21:00 UNV Non-Formulary Medication (Lumateperone Tosylate (Caplyta)) 42 mg DAILY PO 05/21/21 09:00 UNV Lurasidone HCl (Latuda) 20 mg DAILYWBKFT PO 05/21/21 08:00 05/22/21 17:21 DC 05/21/21 08:25 Non-Formulary Medication ([propranolol ER] ) 120 mg DAILY PO 05/21/21 09:00 UNV Doxycycline Hyclate (Vibra-Tab) 100 mg BID PO 05/20/21 21:00 05/29/21 09:01 05/23/21 08:22 Propranolol HCl (Inderal La) 120 mg DAILY PO 05/21/21 09:00 05/22/21 07:49 Lactobacillus Rhamnosus (Culturelle) 1 cap BID PO 05/21/21 09:00 05/23/21 08:23 Ziprasidone (Geodon) 20 mg BID PO 05/21/21 21:00 05/23/21 08:23 Vitamin D (Vitamin D3) 50,000 unit WEEKLY PO 05/28/21 09:00 Cyanocobalamin (Vitamin B-12) 1,000 mcg Q4WK IM 05/22/21 09:00 05/22/21 11:01 Current Medications Medications (Trade) Dose Ordered Sig/Ashley Route PRN Reason Start Time Stop Time Status Last Admin Dose Admin Cyanocobalamin (Vitamin B-12) 1,000 mcg Q4WK IM 05/22/21 09:00 05/22/21 11:01 I have reviewed the current psychotropics carefully including drug interactions. Risk benefit ratio favors no change other than as noted in my dictated progress note. Diagnosis: Problems: (1) Anxiety disorder, unspecified (2) Major depressive disorder with psychotic features (3) Bipolar disorder, current episode mixed, severe, with psychotic features (4) Psychotic disorder (5) Parkinson's disease MYNOR FABIAN MD May 23, 2021 08:48
[2021-05-23] MEDS: PROPRANOLOL ER 60 MG CAP.SA.24H. PO SCH (08:51)
[2021-05-23] MEDS: NON FORMULARY ITEM (Asenapine Maleate (Saphris) 10 MG) SL SCH ×2 (08:51→20:05)
[2021-05-23] MEDS: LUMATEPERONE TOSYLATE 42 MG PO SCH (08:51)
--- NOTE | 2021-05-23 15:15 | NUR ---
Nurse Note Patient compliant with medications taking all medications whole. No mention of hearing voices in her head. No suicidal ideations at this time. patient is compliant with medication, taking all medications whole. resting in bed after lunch for a bit. Patient socializes with other patients and staff.
[2021-05-23 16:16] VITALS: BP 115/73
--- NOTE | 2021-05-23 17:13 | NUR ---
Nurse Note order New order from Dr. Reese for EKG to be done tomorrow. if QTC is less than 450 increase Geodon 20 mg daily and Geodon at 40 mg at 1700.
[2021-05-23] MEDS: PRIMIDONE 50 MG TABLET PO SCH (20:04)
--- NOTE | 2021-05-23 22:03 | PDOC ---
Exam Note: Bran Note: Please also refer to the separate dictated note~for this date of service dictated separately.~Patient seen individually. Discussed the patient with Nursing staff reviewed the chart.~Reviewed interim history and current functioning. Reviewed vital signs,~Labs/ Radiology~and current medications noted below. Continue current treatment with the changes noted in the dictated addendum note Assessment: Vital Signs/I&O: Vital Signs Date Time Temp Pulse Resp B/P (MAP) Pulse Ox O2 Delivery O2 Flow Rate FiO2 05/23/21 16:16 97.8 62 18 115/73 (87) 95 05/23/21 05:50 Room Air I & O 05/22/21 05/22/21 05/23/21 15:00 23:00 07:00 Intake Total 600 ml 360 ml 360 ml Balance 600 ml 360 ml 360 ml Current Medications: Meds: Current Medications Medications (Trade) Dose Ordered Sig/Ashley Route PRN Reason Start Time Stop Time Status Last Admin Dose Admin Acetaminophen (Tylenol) 650 mg PRN Q6HRS PRN PO MILD PAIN / TEMP > 100.3'F 05/19/21 19:45 Multi-Ingredient Ointment (Analgesic [place]) 1 rayo PRN QID PRN TP MUSCLE PAIN 05/19/21 19:45 Al Hydroxide/Mg Hydroxide (Mylanta Plus Xs) 15 ml PRN AFTMEALHC PRN PO DYSPEPSIA 05/19/21 19:45 Magnesium Hydroxide (Milk Of Magnesia) 2,400 mg PRN QHS PRN PO CONSTIPATION 05/19/21 19:45 05/19/21 23:53 Carbidopa/Levodopa (Sinemet 25/100) 0.5 tab TID PO 05/20/21 21:00 05/23/21 20:04 Lamotrigine (LaMICtal) 100 mg BID PO 05/20/21 21:00 05/23/21 20:04 Primidone (Mysoline) 100 mg QHS PO 05/20/21 21:00 05/23/21 20:04 Non-Formulary Medication (Asenapine Maleate (Saphris)) 10 mg BID SL 05/20/21 21:00 UNV 05/23/21 08:51 Non-Formulary Medication (Lumateperone Tosylate (Caplyta)) 42 mg DAILY PO 05/21/21 09:00 UNV Lurasidone HCl (Latuda) 20 mg DAILYWBKFT PO 05/21/21 08:00 05/22/21 17:21 DC 05/21/21 08:25 Non-Formulary Medication ([propranolol ER] ) 120 mg DAILY PO 05/21/21 09:00 UNV Doxycycline Hyclate (Vibra-Tab) 100 mg BID PO 05/20/21 21:00 05/29/21 09:01 05/23/21 20:04 Propranolol HCl (Inderal La) 120 mg DAILY PO 05/21/21 09:00 05/22/21 07:49 Lactobacillus Rhamnosus (Culturelle) 1 cap BID PO 05/21/21 09:00 05/23/21 20:03 Ziprasidone (Geodon) 20 mg BID PO 05/21/21 21:00 05/23/21 20:03 Vitamin D (Vitamin D3) 50,000 unit WEEKLY PO 05/28/21 09:00 Cyanocobalamin (Vitamin B-12) 1,000 mcg Q4WK IM 05/22/21 09:00 05/22/21 11:01 I have reviewed the current psychotropics carefully including drug interactions. Risk benefit ratio favors no change other than as noted in my dictated progress note. Diagnosis: Problems: (1) Anxiety disorder, unspecified (2) Major depressive disorder with psychotic features (3) Bipolar disorder, current episode mixed, severe, with psychotic features (4) Psychotic disorder (5) Parkinson's disease MYNOR FABIAN MD May 23, 2021 22:03
--- NOTE | 2021-05-23 22:40 | NUR ---
Patient is in the day room on assumption of care, watching a baseball game with her peers. She is pleasant, calm, cooperative. Interactive and appropriate with staff and peers. A/O x4. Compliant with assessments and medications taken whole. She denies hearing any voices so far this shift. No agitation. Patient denies any pain or discomfort. She appears to be sleeping comfortably at present time. Will continue to monitor.
[2021-05-24 05:36] VITALS: BP 95/57
[2021-05-24] MEDS: ZIPRASIDONE 20 MG CAPSULE. PO SCH (08:52)
[2021-05-24] MEDS: LACTOBACILLUS RHAMNOSUS GG 1 CAPSULE. PO SCH ×2 (08:52→20:16)
[2021-05-24] MEDS: DOXYCYCLINE HYCLATE 100 MG TABLET PO SCH ×2 (08:52→20:16)
[2021-05-24] MEDS: lamoTRIgine 100 MG TABLET. PO SCH ×2 (08:52→20:16)
[2021-05-24] MEDS: CARBIDOPA/LEVODOPA 25/100MG TABLET PO SCH ×3 (08:53→20:16)
[2021-05-24] MEDS: NON FORMULARY ITEM (Asenapine Maleate (Saphris) 10 MG) SL SCH ×2 (08:53→19:41)
[2021-05-24] MEDS: LUMATEPERONE TOSYLATE 42 MG PO SCH (08:54)
--- NOTE | 2021-05-24 08:59 | PDOC ---
Exam Note: Bran Note: This note is a late entry for 05/22/2021 covers elements not covered in my initial note. Subjective: The patient was seen individually in the evening of 05/22/2021 with Vik NAVARRO, discussed and reviewed the chart. The patient slept 6-1/4 hours previous night. Per nursing staff previous evening the patient denied hearing any voices but during the day on 02/20 she told nursing staff, she was hearing bad voices since the day before in the afternoon. Apparently she said there were voices telling her to hurt herself but she would not listen to them. Other times she states she hears good voices only. Review of Systems: Positive for parkinsonian tremors. No CV, , pulmonary, eye, ENT system symptoms on review. Mental Status Exam: The patient is reasonably oriented. Speech is coherent. Abstraction fair. Computation impaired. Language function intact. She is still somewhat paranoid though she is concerned about ongoing hallucinations. No suicidal or homicidal ideation. Laboratory Data: Reviewed. Impression: Major depressive disorder with psychotic features. Bipolar disorder, mixed with psychotic features. Anxiety disorder unspecified. Parkinsons disease. Psychotic disorder unspecified. Plan: Maintain current psychotropics. Geodon initiated at 20 mg b.i.d. We will increase gradually and she is on Primidone for essential tremors and Sinemet for Parkinsons. Assessment: Vital Signs/I&O: Vital Signs Date Time Temp Pulse Resp B/P (MAP) Pulse Ox O2 Delivery O2 Flow Rate FiO2 05/24/21 05:36 97.4 60 16 95/57 (70) 97 Room Air I & O 05/23/21 05/23/21 05/24/21 15:00 23:00 07:00 Intake Total 600 ml 240 ml Balance 600 ml 240 ml Current Medications: Meds: Current Medications Medications (Trade) Dose Ordered Sig/Ashley Route PRN Reason Start Time Stop Time Status Last Admin Dose Admin Acetaminophen (Tylenol) 650 mg PRN Q6HRS PRN PO MILD PAIN / TEMP > 100.3'F 05/19/21 19:45 Multi-Ingredient Ointment (Analgesic [place]) 1 rayo PRN QID PRN TP MUSCLE PAIN 05/19/21 19:45 Al Hydroxide/Mg Hydroxide (Mylanta Plus Xs) 15 ml PRN AFTMEALHC PRN PO DYSPEPSIA 05/19/21 19:45 Magnesium Hydroxide (Milk Of Magnesia) 2,400 mg PRN QHS PRN PO CONSTIPATION 05/19/21 19:45 05/19/21 23:53 Carbidopa/Levodopa (Sinemet 25/100) 0.5 tab TID PO 05/20/21 21:00 05/24/21 08:53 Lamotrigine (LaMICtal) 100 mg BID PO 05/20/21 21:00 05/24/21 08:52 Primidone (Mysoline) 100 mg QHS PO 05/20/21 21:00 05/23/21 20:04 Non-Formulary Medication (Asenapine Maleate (Saphris)) 10 mg BID SL 05/20/21 21:00 UNV 05/23/21 08:51 Non-Formulary Medication (Lumateperone Tosylate (Caplyta)) 42 mg DAILY PO 05/21/21 09:00 UNV Lurasidone HCl (Latuda) 20 mg DAILYWBKFT PO 05/21/21 08:00 05/22/21 17:21 DC 05/21/21 08:25 Non-Formulary Medication ([propranolol ER] ) 120 mg DAILY PO 05/21/21 09:00 UNV Doxycycline Hyclate (Vibra-Tab) 100 mg BID PO 05/20/21 21:00 05/29/21 09:01 05/24/21 08:52 Propranolol HCl (Inderal La) 120 mg DAILY PO 05/21/21 09:00 05/22/21 07:49 Lactobacillus Rhamnosus (Culturelle) 1 cap BID PO 05/21/21 09:00 05/24/21 08:52 Ziprasidone (Geodon) 20 mg BID PO 05/21/21 21:00 05/24/21 08:52 Vitamin D (Vitamin D3) 50,000 unit WEEKLY PO 05/28/21 09:00 Cyanocobalamin (Vitamin B-12) 1,000 mcg Q4WK IM 05/22/21 09:00 05/22/21 11:01 I have reviewed the current psychotropics carefully including drug interactions. Risk benefit ratio favors no change other than as noted in my dictated progress note. Diagnosis: Problems: (1) Anxiety disorder, unspecified (2) Major depressive disorder with psychotic features (3) Bipolar disorder, current episode mixed, severe, with psychotic features (4) Psychotic disorder (5) Parkinson's disease MNYOR FABIAN MD May 24, 2021 08:59
[2021-05-24] MEDS: PROPRANOLOL ER 60 MG CAP.SA.24H. PO SCH (09:09)
--- NOTE | 2021-05-24 16:02 | NUR ---
Nursing note: Patient in dinning room at time of AM med pass and assessment, medication taken whole. She is oriented times 4. Patient is calm, cooperative & pleasant. Interacts with peers & staff. Patient denies and pain/discomfort at this time. She voiced AH telling her the staff is tired so she should kill herself, as well as to hurt her roommate. She reported she knows not to listen to the voices. She is currently sitting in the day room. Will continue to monitor.
[2021-05-24 16:06] VITALS: BP 94/63
[2021-05-24] MEDS: ZIPRASIDONE 40 MG CAPSULE. PO SCH (17:44)
--- NOTE | 2021-05-24 18:04 | EKG ---
[address] [address] Test Date: 2021-05-24 Test Time: 16:15:03 Pat Name: MODESTA BLANCO Department: Room: [address] [place] [address] Gender: F [employer]: : 1960 Requested By: MYNOR FABIAN Order Number: [id number] Reading MD: Measurements Intervals [place] Rate: 65 P: 34 DC: 120 QRS: 21 QRSD: 86 T: 52 QT: 400 QTc: 421 Interpretive Statements SINUS RHYTHM NO SPECIFIC ECG ABNORMALITIES RI6.01 No previous ECG available for comparison
[2021-05-24] MEDS: PRIMIDONE 50 MG TABLET PO SCH (20:16)
--- NOTE | 2021-05-24 21:59 | PDOC ---
Exam Note: Bran Note: Please also refer to the separate dictated note~for this date of service dictated separately.~Patient seen individually. Discussed the patient with Nursing staff reviewed the chart.~Reviewed interim history and current functioning. Reviewed vital signs,~Labs/ Radiology~and current medications noted below. Continue current treatment with the changes noted in the dictated addendum note Assessment: Vital Signs/I&O: Vital Signs Date Time Temp Pulse Resp B/P (MAP) Pulse Ox O2 Delivery O2 Flow Rate FiO2 05/24/21 16:06 97.6 68 18 94/63 (73) 97 Room Air I & O 05/23/21 05/23/21 05/24/21 15:00 23:00 07:00 Intake Total 600 ml 240 ml Balance 600 ml 240 ml Current Medications: Meds: Current Medications Medications (Trade) Dose Ordered Sig/Ashley Route PRN Reason Start Time Stop Time Status Last Admin Dose Admin Acetaminophen (Tylenol) 650 mg PRN Q6HRS PRN PO MILD PAIN / TEMP > 100.3'F 05/19/21 19:45 Multi-Ingredient Ointment (Analgesic [place]) 1 rayo PRN QID PRN TP MUSCLE PAIN 05/19/21 19:45 Al Hydroxide/Mg Hydroxide (Mylanta Plus Xs) 15 ml PRN AFTMEALHC PRN PO DYSPEPSIA 05/19/21 19:45 Magnesium Hydroxide (Milk Of Magnesia) 2,400 mg PRN QHS PRN PO CONSTIPATION 05/19/21 19:45 05/19/21 23:53 Carbidopa/Levodopa (Sinemet 25/100) 0.5 tab TID PO 05/20/21 21:00 05/24/21 20:16 Lamotrigine (LaMICtal) 100 mg BID PO 05/20/21 21:00 05/24/21 20:16 Primidone (Mysoline) 100 mg QHS PO 05/20/21 21:00 05/24/21 20:16 Non-Formulary Medication (Asenapine Maleate (Saphris)) 10 mg BID SL 05/20/21 21:00 UNV 05/23/21 08:51 Non-Formulary Medication (Lumateperone Tosylate (Caplyta)) 42 mg DAILY PO 05/21/21 09:00 UNV Lurasidone HCl (Latuda) 20 mg DAILYWBKFT PO 05/21/21 08:00 05/22/21 17:21 DC 05/21/21 08:25 Non-Formulary Medication ([propranolol ER] ) 120 mg DAILY PO 05/21/21 09:00 UNV Doxycycline Hyclate (Vibra-Tab) 100 mg BID PO 05/20/21 21:00 05/29/21 09:01 05/24/21 20:16 Propranolol HCl (Inderal La) 120 mg DAILY PO 05/21/21 09:00 05/24/21 09:09 Lactobacillus Rhamnosus (Culturelle) 1 cap BID PO 05/21/21 09:00 05/24/21 20:16 Ziprasidone (Geodon) 20 mg BID PO 05/21/21 21:00 05/24/21 16:35 DC 05/24/21 08:52 Vitamin D (Vitamin D3) 50,000 unit WEEKLY PO 05/28/21 09:00 Cyanocobalamin (Vitamin B-12) 1,000 mcg Q4WK IM 05/22/21 09:00 05/22/21 11:01 Ziprasidone (Geodon) 20 mg DAILY PO 05/25/21 09:00 Ziprasidone (Geodon) 40 mg 1700 PO 05/24/21 17:00 05/24/21 17:44 Current Medications Medications (Trade) Dose Ordered Sig/Ashley Route PRN Reason Start Time Stop Time Status Last Admin Dose Admin Ziprasidone (Geodon) 40 mg 1700 PO 05/24/21 17:00 05/24/21 17:44 I have reviewed the current psychotropics carefully including drug interactions. Risk benefit ratio favors no change other than as noted in my dictated progress note. Diagnosis: Problems: (1) Anxiety disorder, unspecified (2) Major depressive disorder with psychotic features (3) Bipolar disorder, current episode mixed, severe, with psychotic features (4) Psychotic disorder (5) Parkinson's disease MYNOR FABIAN MD May 24, 2021 21:59
--- NOTE | 2021-05-24 22:46 | NUR ---
Patient is in the day room on assumption of care,watching television with her peers. She is pleasant, calm, cooperative. Interactive and appropriate with staff and peers. A/O x4. Compliant with assessments and medications taken whole. She denies hearing any voices so far this shift. No agitation. Patient denies any pain or discomfort. She appears to be sleeping comfortably at present time. Will continue to monitor.
--- NOTE | 2021-05-25 00:55 | PN ---
DATE: 05/21/2021 SUBJECTIVE: The patient denies any new medical or neurological complaints; however, she continues to have a tremor of the upper extremities, aggravated by motion and emotion. PHYSICAL EXAMINATION: GENERAL: Well-developed, well-nourished female in no acute distress. VITAL SIGNS: Blood pressure 132/73, respiratory rate 20, pulse is 69, temperature 97.8, oxygen saturation 94% on room air. HEENT: Normocephalic, atraumatic, otherwise unremarkable. NECK: Supple, negative for carotid bruit, lymphadenopathy or thyromegaly. LUNGS: Clear to A and P. CARDIOVASCULAR: Regular rate and rhythm, normal S1, S2. ABDOMEN: Soft. Bowel sounds positive. EXTREMITIES: Negative for cyanosis, clubbing or pedal edema. NEUROLOGIC: Mental status: The patient is alert and oriented x2. The speech is fluent. There is no language dysfunction. Memory, judgment and abstracting thinkings are fair. The patient denies hallucination or delusion. The patient denies suicidal ideation. Cranial nerves intact. Motor Examination: No focal muscle bulk wasting. The tone is normal. The strength is 4/5 throughout. Sensory examination revealed normal pinprick, light touch senses throughout. Deep tendon reflexes were symmetric and hypoactive with absent Achilles responses. Gait: The patient walks normally with a full strength of the upper extremities. She turns without any difficulties. IMPRESSION: 1. Tremor, may represent a drug-induced parkinsonian tremor. 2. Essential tremor. 3. Vitamin D and vitamin B12 deficiency. 4. Frequent urinary tract infections. 5. Hyperlipidemia. 6. Multiple psychiatric problems include major depression, anxiety disorders. RECOMMENDATIONS: Continue with current medical and psychiatric care. Continue with propranolol and primidone. TAMAR DR: Jocelyn TID: [id number]
--- NOTE | 2021-05-25 01:06 | PN ---
DATE: 05/23/2021 SUBJECTIVE: The patient denies any new medical or neurological complaints. She continued to have tremor of the upper extremities. She denies any new neurological complaints. OBJECTIVE: GENERAL: Well-developed, well-nourished female, not in any acute distress. VITAL SIGNS: Blood pressure 107/69, respiratory rate 18, pulse is 61 and regular, oxygen saturation is 95% on room air. HEENT: Normocephalic, atraumatic, otherwise unremarkable. NECK: Supple, negative for carotid bruit, lymphadenopathy or thyromegaly. LUNGS: Clear to A and P. CARDIOVASCULAR: Regular rate and rhythm, normal S1, S2. ABDOMEN: Soft. Bowel sounds positive. EXTREMITIES: Negative for cyanosis, clubbing or pedal edema. NEUROLOGIC: Mental status: The patient is alert and oriented x 3. The speech is fluent. There is no language dysfunction. Memory, judgment and abstracting thinkings are normal. The patient denies hallucination or delusion. Cranial nerves are intact. No focal motor or sensory deficit. The strength is 4/5 throughout. Sensory exam 4/5 throughout. Deep tendon reflexes were symmetric and active with absent Achilles responses. Gait is normal. IMPRESSION: 1. Resting, postural and kinetic tremors of the upper extremities, probably with multiple etiologies including drug-induced parkinsonian tremor, essential tremor. 2. Multiple medical problems include hyperlipidemia, vitamin D deficiency and vitamin B12 deficiency and frequent urinary tract infections. 3. Multiple psychiatric problems include major depressions, anxiety, paranoia and a history of suicidal attempt by overdose of her medications. RECOMMENDATIONS: I will continue with current medical and psychiatric care. Continue with Coumadin, continue with primidone and propranolol. There is no significant interaction between Geodon and either with propranolol or primidone, confirmed by our pharmacist at [facility]. SILVIA/HARRIETT DR: Jocelyn TID: [id number]
[2021-05-25 05:40] VITALS: BP 120/71
--- NOTE | 2021-05-25 08:23 | CONS ---
DATE OF CONSULTATION: 05/20/2021 NEUROLOGY CONSULTATION REFERRING PHYSICIAN: Reynaldo Reese MD REASON FOR CONSULTATION: Constant tremor of the upper extremities. HISTORY OF PRESENT ILLNESS: This is a 60-year-old right-handed female who was admitted to a Geropsychiatric Unit on 05/19/2021 on account of hallucination. The patient did have overdose of medication in a suicide attempt. She was admitted to a different psych unit at different hospitals and presumably she was treated with antipsychotropic medications. Subsequently and according to the patient, she started having constant tremor as a result of side effects of her medications. A neuro consult was requested because the patient was evaluated in the past and diagnosed with possible Parkinson's disease. Lately, the patient was diagnosed with essential tremor and she was placed on propranolol and primidone along with small dose of carbidopa/levodopa. Currently, the patient stated she has at least 2 family members with similar tremor she has had. The patient also diagnosed with major depression, anxiety disorders and paranoia. She denies headaches, visual disturbances, nausea, vomiting, chest pain, shortness of breath or palpitation, dysarthria, dysphagia or vertigo. The patient has failed outpatient psychiatric care. In regard to her tremor, she stated her current tremor is usually aggravated by being upset or ____ or by severe anxiety. PAST MEDICAL HISTORY: Significant for possible drug-induced Parkinson's disease, essential tremor, hyperlipidemia, frequent urinary tract infections and falls. PAST SURGICAL HISTORY: Positive for tonsillectomy and 4 C-sections. FAMILY HISTORY: Noncontributory. SOCIAL HISTORY: The patient is . Her recently and she becomes very depressed and anxious. She had 2 daughters and 2 sons. She denies smoking, alcohol drinking or illicit drug use. CURRENT MEDICATIONS: Vitamin D 50 units p.o. weekly, Geodon 20 mg p.o. daily and 40 mg p.m., vitamin B12 1000 mcg IM injection monthly, propranolol LA 120 mg p.o. daily, doxycycline ____ mg b.i.d., Saphris 10 mg sublingually, primidone 100 mg at bedtime, lamotrigine 100 mg b.i.d., carbidopa/levodopa 25/100 ____ t.i.d., Tylenol 650 mg p.r.n. ALLERGIES: No known drug allergies. PHYSICAL EXAMINATION: GENERAL: Well-developed, well-nourished female in no acute distress. She weighs 81.8 kilos. VITAL SIGNS: Blood pressure 149/98, respiratory rate 16, pulse is 99 and regular, temperature 98.5, oxygen saturation 97% on room air. HEENT: Normocephalic, atraumatic, otherwise unremarkable. NECK: Supple, negative for carotid bruit, lymphadenopathy or thyromegaly. LUNGS: Clear to A and P. CARDIOVASCULAR: Regular rhythm. Normal S1, S2. There is no S3, S4 or murmur. ABDOMEN: Soft. Bowel sounds positive. EXTREMITIES: Negative for cyanosis, clubbing or pedal edema. NEUROLOGIC: Mental status: The patient is alert and oriented x 2. The speech is fluent. There is no language dysfunction. Memory, judgment and abstracting thinkings are fair. The patient denies hallucination or delusion. Cranial nerves: Visual pace are full. The pupils are reactive to light and accommodation. The extraocular movements are intact. There is no nystagmus. There is no facial motor or sensory deficit. Hearing is intact bilaterally. The palate is elevated symmetrically. Sternocleidomastoid muscles are powerful bilaterally. The patient shrugs her shoulders symmetrically, protrudes her tongue in the midline without fasciculation or atrophy. Gait and coordination are normal. Motor examination: No focal muscle bulk wasting. The tone is normal. The strength is 5/5 throughout. The patient had resting, postural and kinetic tremors involving both upper extremities. LABORATORY DATA: CBC revealed white cells of 7.9 thousand, hemoglobin 12.4, hematocrit 36.8, platelet count 266,000. Chemistry revealed sodium 143, potassium 4.1, chloride 106, CO2 of 26, BUN 20, creatinine 1.1, glucose 112, calcium 9.2. Liver enzymes are low. Lipid profile is high cholesterol and high LDL with normal HDL. Vitamin D was 15.3 and thyroid profile is normal. Vitamin B12 is borderline low at 263. Coagulation study, high D-dimer at 0.94. RPR is nonreactive. Urinalysis revealed trace urinary leukocyte esterase with white blood cells of 5-9. IMPRESSION: 1. A tremor of the upper extremities as described above, probably multifactorial including essential tremor or drug-induced parkinsonian tremor. 2. Multiple medical problems include hyperlipidemia, frequent urinary tract infections, vitamin D deficiency and vitamin B12 deficiency. RECOMMENDATIONS: 1. Continue with current medical and psychiatric care. 2. Continue with primidone, propranolol, long-acting. According to Lukasz and primidone or propranolol, there has been no significant drug interactions between those 3 medications; however, the drowsiness may occur. SILVIA/REYMUNDO/WILLIAM DR: Jocelyn TID: [id number]
[2021-05-25] MEDS: PROPRANOLOL ER 60 MG CAP.SA.24H. PO SCH (08:38)
[2021-05-25] MEDS: lamoTRIgine 100 MG TABLET. PO SCH ×2 (08:38→20:30)
[2021-05-25] MEDS: ZIPRASIDONE 20 MG CAPSULE. PO SCH (08:38)
[2021-05-25] MEDS: LACTOBACILLUS RHAMNOSUS GG 1 CAPSULE. PO SCH ×2 (08:38→20:30)
[2021-05-25] MEDS: DOXYCYCLINE HYCLATE 100 MG TABLET PO SCH ×2 (08:38→20:30)
[2021-05-25] MEDS: CARBIDOPA/LEVODOPA 25/100MG TABLET PO SCH ×3 (08:39→20:34)
[2021-05-25] MEDS: NON FORMULARY ITEM (Asenapine Maleate (Saphris) 10 MG) SL SCH (08:40)
[2021-05-25] MEDS: LUMATEPERONE TOSYLATE 42 MG PO SCH (08:40)
--- NOTE | 2021-05-25 09:11 | PDOC ---
Exam Note: Bran Note: This note is a late entry for 05/23/2021 covers elements not covered in my initial note. Subjective: The patient was seen individually in the evening of 05/23/2021 with Gianna NAVARRO, discussed and reviewed the chart. The patient slept 5-1/2 hours previous night. She denies any hallucinations and denies suicidal ideation. We will check an EKG if corrected QT interval is less than 450 milliseconds. We will increase Geodon from 20 mg b.i.d. to 20 mg a.m. and 40 mg h.s. I met with her at length in the evening. Review of Systems: Positive for parkinsonian tremors. No CV, , pulmonary, eye, ENT system symptoms on review. Mental Status Exam: The patient is reasonably oriented. She was pleasant, verbal, interactive. She is somewhat distractible. Speech is coherent. Abstraction fair. Computation impaired. Language function intact. Denied hallucinations, suicidal or homicidal ideation. Laboratory Data: Reviewed. Impression: Major depressive disorder with psychotic features. Bipolar disorder, mixed with psychotic features. Anxiety disorder unspecified. Parkinsons disease. Psychotic disorder unspecified. Plan: Maintain current psychotropics. Assessment: Vital Signs/I&O: Vital Signs Date Time Temp Pulse Resp B/P (MAP) Pulse Ox O2 Delivery O2 Flow Rate FiO2 05/25/21 08:38 62 120/71 05/25/21 05:40 97.4 18 98 05/24/21 16:06 Room Air I & O 05/24/21 05/24/21 05/25/21 14:59 22:59 06:59 Intake Total 480 ml 240 ml 120 ml Balance 480 ml 240 ml 120 ml Current Medications: Meds: Current Medications Medications (Trade) Dose Ordered Sig/Ashley Route PRN Reason Start Time Stop Time Status Last Admin Dose Admin Acetaminophen (Tylenol) 650 mg PRN Q6HRS PRN PO MILD PAIN / TEMP > 100.3'F 05/19/21 19:45 Multi-Ingredient Ointment (Analgesic [place]) 1 rayo PRN QID PRN TP MUSCLE PAIN 05/19/21 19:45 Al Hydroxide/Mg Hydroxide (Mylanta Plus Xs) 15 ml PRN AFTMEALHC PRN PO DYSPEPSIA 05/19/21 19:45 Magnesium Hydroxide (Milk Of Magnesia) 2,400 mg PRN QHS PRN PO CONSTIPATION 05/19/21 19:45 05/19/21 23:53 Carbidopa/Levodopa (Sinemet 25/100) 0.5 tab TID PO 05/20/21 21:00 05/25/21 08:39 Lamotrigine (LaMICtal) 100 mg BID PO 05/20/21 21:00 05/25/21 08:38 Primidone (Mysoline) 100 mg QHS PO 05/20/21 21:00 05/24/21 20:16 Non-Formulary Medication (Asenapine Maleate (Saphris)) 10 mg BID SL 05/20/21 21:00 UNV 05/23/21 08:51 Non-Formulary Medication (Lumateperone Tosylate (Caplyta)) 42 mg DAILY PO 05/21/21 09:00 UNV Lurasidone HCl (Latuda) 20 mg DAILYWBKFT PO 05/21/21 08:00 05/22/21 17:21 DC 05/21/21 08:25 Non-Formulary Medication ([propranolol ER] ) 120 mg DAILY PO 05/21/21 09:00 UNV Doxycycline Hyclate (Vibra-Tab) 100 mg BID PO 05/20/21 21:00 05/29/21 09:01 05/25/21 08:38 Propranolol HCl (Inderal La) 120 mg DAILY PO 05/21/21 09:00 05/25/21 08:38 Lactobacillus Rhamnosus (Culturelle) 1 cap BID PO 05/21/21 09:00 05/25/21 08:38 Ziprasidone (Geodon) 20 mg BID PO 05/21/21 21:00 05/24/21 16:35 DC 05/24/21 08:52 Vitamin D (Vitamin D3) 50,000 unit WEEKLY PO 05/28/21 09:00 Cyanocobalamin (Vitamin B-12) 1,000 mcg Q4WK IM 05/22/21 09:00 05/22/21 11:01 Ziprasidone (Geodon) 20 mg DAILY PO 05/25/21 09:00 05/25/21 08:38 Ziprasidone (Geodon) 40 mg 1700 PO 05/24/21 17:00 05/24/21 17:44 Current Medications Medications (Trade) Dose Ordered Sig/Ashley Route PRN Reason Start Time Stop Time Status Last Admin Dose Admin Ziprasidone (Geodon) 20 mg DAILY PO 05/25/21 09:00 05/25/21 08:38 Ziprasidone (Geodon) 40 mg 1700 PO 05/24/21 17:00 05/24/21 17:44 I have reviewed the current psychotropics carefully including drug interactions. Risk benefit ratio favors no change other than as noted in my dictated progress note. Diagnosis: Problems: (1) Anxiety disorder, unspecified (2) Major depressive disorder with psychotic features (3) Bipolar disorder, current episode mixed, severe, with psychotic features (4) Psychotic disorder (5) Parkinson's disease MYNOR FABIAN MD May 25, 2021 09:11
--- NOTE | 2021-05-25 09:38 | PDOC ---
Exam Note: Bran Note: This note is a late entry for 05/24/2021 covers elements not covered in my initial note. Subjective: The patient was seen individually in the evening of 05/24/2021 with Angelia NAVARRO, discussed and reviewed the chart. The patient slept 7-1/4 hours previous night. Corrected QT interval is 421 milliseconds. We will increase Geodon to 20 mg a.m. and 40 mg p.m. She has been having auditory hallucinations. She states voices are telling her to kill herself or her roommate. I had lengthy discussion with nursing staff and we will give her a single room for herself and move her roommate out off the room. Her room is right across the nursing station. We will keep the door open at night. Review of Systems: Positive for parkinsonian tremors. No CV, , pulmonary, eye, ENT system symptoms on review. Mental Status Exam: The patient is reasonably oriented. Speech is coherent. Abstraction fair. Computation impaired. Language function intact. No suicidal or homicidal ideation. Laboratory Data: Reviewed. Impression: Major depressive disorder with psychotic features. Bipolar disorder, mixed with psychotic features. Anxiety disorder unspecified. Parkinsons disease. Psychotic disorder unspecified. Plan: During the individual visit, we talked at length about her diagnoses. We have repeated EKG and since this is unremarkable we are increasing Geodon to 20 mg a.m. and 40 mg p.m. We may consider Risperdal if she does not respond to the Geodon. Continue rest of the psychotropics unchanged for now. She remains on Lamictal 100 mg b.i.d., Sinemet, Primidone. Assessment: Vital Signs/I&O: Vital Signs Date Time Temp Pulse Resp B/P (MAP) Pulse Ox O2 Delivery O2 Flow Rate FiO2 05/25/21 08:38 62 120/71 05/25/21 05:40 97.4 18 98 05/24/21 16:06 Room Air I & O 05/24/21 05/24/21 05/25/21 15:00 23:00 07:00 Intake Total 480 ml 240 ml 120 ml Balance 480 ml 240 ml 120 ml Current Medications: Meds: Current Medications Medications (Trade) Dose Ordered Sig/Ashley Route PRN Reason Start Time Stop Time Status Last Admin Dose Admin Acetaminophen (Tylenol) 650 mg PRN Q6HRS PRN PO MILD PAIN / TEMP > 100.3'F 05/19/21 19:45 Multi-Ingredient Ointment (Analgesic [place]) 1 rayo PRN QID PRN TP MUSCLE PAIN 05/19/21 19:45 Al Hydroxide/Mg Hydroxide (Mylanta Plus Xs) 15 ml PRN AFTMEALHC PRN PO DYSPEPSIA 05/19/21 19:45 Magnesium Hydroxide (Milk Of Magnesia) 2,400 mg PRN QHS PRN PO CONSTIPATION 05/19/21 19:45 05/19/21 23:53 Carbidopa/Levodopa (Sinemet 25/100) 0.5 tab TID PO 05/20/21 21:00 05/25/21 08:39 Lamotrigine (LaMICtal) 100 mg BID PO 05/20/21 21:00 05/25/21 08:38 Primidone (Mysoline) 100 mg QHS PO 05/20/21 21:00 05/24/21 20:16 Non-Formulary Medication (Asenapine Maleate (Saphris)) 10 mg BID SL 05/20/21 21:00 UNV 05/23/21 08:51 Non-Formulary Medication (Lumateperone Tosylate (Caplyta)) 42 mg DAILY PO 05/21/21 09:00 UNV Lurasidone HCl (Latuda) 20 mg DAILYWBKFT PO 05/21/21 08:00 05/22/21 17:21 DC 05/21/21 08:25 Non-Formulary Medication ([propranolol ER] ) 120 mg DAILY PO 05/21/21 09:00 UNV Doxycycline Hyclate (Vibra-Tab) 100 mg BID PO 05/20/21 21:00 05/29/21 09:01 05/25/21 08:38 Propranolol HCl (Inderal La) 120 mg DAILY PO 05/21/21 09:00 05/25/21 08:38 Lactobacillus Rhamnosus (Culturelle) 1 cap BID PO 05/21/21 09:00 05/25/21 08:38 Ziprasidone (Geodon) 20 mg BID PO 05/21/21 21:00 05/24/21 16:35 DC 05/24/21 08:52 Vitamin D (Vitamin D3) 50,000 unit WEEKLY PO 05/28/21 09:00 Cyanocobalamin (Vitamin B-12) 1,000 mcg Q4WK IM 05/22/21 09:00 05/22/21 11:01 Ziprasidone (Geodon) 20 mg DAILY PO 05/25/21 09:00 05/25/21 08:38 Ziprasidone (Geodon) 40 mg 1700 PO 05/24/21 17:00 05/24/21 17:44 Current Medications Medications (Trade) Dose Ordered Sig/Ashley Route PRN Reason Start Time Stop Time Status Last Admin Dose Admin Ziprasidone (Geodon) 20 mg DAILY PO 05/25/21 09:00 05/25/21 08:38 Ziprasidone (Geodon) 40 mg 1700 PO 05/24/21 17:00 05/24/21 17:44 I have reviewed the current psychotropics carefully including drug interactions. Risk benefit ratio favors no change other than as noted in my dictated progress note. Diagnosis: Problems: (1) Anxiety disorder, unspecified (2) Major depressive disorder with psychotic features (3) Bipolar disorder, current episode mixed, severe, with psychotic features (4) Psychotic disorder (5) Parkinson's disease MYNOR FABIAN MD May 25, 2021 09:38
--- NOTE | 2021-05-25 14:56 | NUR ---
Nursing note: Patient in dinning room at time of AM med pass and assessment, medication taken whole. She is oriented times 4. Patient is calm, cooperative & pleasant. Interacts with peers & staff. Patient denies and pain/discomfort at this time. She reported she had AH last night that told her to smother herself. She stated she knows not to listen to the voices. She is currently sitting in the day room. Will continue to monitor.
[2021-05-25 16:12] VITALS: BP 143/73
--- NOTE | 2021-05-25 16:40 | NUR ---
SW met with pt to discuss her concerns about staying on [facility] and really wanting to discharge home sooner than later. Pt smiled throughout the conversation even when discussing having hallucinations and her history. SW and pt discussed how trauma can trigger certain behaviors in which pt is not always able to handle; as well as having issues with chemicals in the brain. Pt reports that she will not be home alone as all her children live with her and is open to having extra community services at the time of discharge. SW will continue to follow up with pt during her stay on [facility].
[2021-05-25] MEDS: ZIPRASIDONE 40 MG CAPSULE. PO SCH (17:52)
[2021-05-25] MEDS: PRIMIDONE 50 MG TABLET PO SCH (20:30)
[2021-05-25] MEDS: MIRTAZAPINE 7.5 MG TABLET. PO SCH (20:30)
--- NOTE | 2021-05-25 22:06 | PDOC ---
Exam Note: Bran Note: Please also refer to the separate dictated note~for this date of service dictated separately.~Patient seen individually. Discussed the patient with Nursing staff reviewed the chart.~Reviewed interim history and current functioning. Reviewed vital signs,~Labs/ Radiology~and current medications noted below. Continue current treatment with the changes noted in the dictated addendum note Assessment: Vital Signs/I&O: Vital Signs Date Time Temp Pulse Resp B/P (MAP) Pulse Ox O2 Delivery O2 Flow Rate FiO2 05/25/21 16:12 97.9 61 16 143/73 (96) 97 05/24/21 16:06 Room Air I & O 05/24/21 05/24/21 05/25/21 15:00 23:00 07:00 Intake Total 480 ml 240 ml 120 ml Balance 480 ml 240 ml 120 ml Current Medications: Meds: Current Medications Medications (Trade) Dose Ordered Sig/Ashley Route PRN Reason Start Time Stop Time Status Last Admin Dose Admin Acetaminophen (Tylenol) 650 mg PRN Q6HRS PRN PO MILD PAIN / TEMP > 100.3'F 05/19/21 19:45 Multi-Ingredient Ointment (Analgesic [place]) 1 rayo PRN QID PRN TP MUSCLE PAIN 05/19/21 19:45 Al Hydroxide/Mg Hydroxide (Mylanta Plus Xs) 15 ml PRN AFTMEALHC PRN PO DYSPEPSIA 05/19/21 19:45 Magnesium Hydroxide (Milk Of Magnesia) 2,400 mg PRN QHS PRN PO CONSTIPATION 05/19/21 19:45 05/19/21 23:53 Carbidopa/Levodopa (Sinemet 25/100) 0.5 tab TID PO 05/20/21 21:00 05/25/21 20:34 Lamotrigine (LaMICtal) 100 mg BID PO 05/20/21 21:00 05/25/21 20:30 Primidone (Mysoline) 100 mg QHS PO 05/20/21 21:00 05/25/21 20:30 Non-Formulary Medication (Asenapine Maleate (Saphris)) 10 mg BID SL 05/20/21 21:00 05/25/21 12:51 DC 05/23/21 08:51 Non-Formulary Medication (Lumateperone Tosylate (Caplyta)) 42 mg DAILY PO 05/21/21 09:00 05/25/21 12:51 DC Lurasidone HCl (Latuda) 20 mg DAILYWBKFT PO 05/21/21 08:00 05/22/21 17:21 DC 05/21/21 08:25 Non-Formulary Medication ([propranolol ER] ) 120 mg DAILY PO 05/21/21 09:00 UNV Doxycycline Hyclate (Vibra-Tab) 100 mg BID PO 05/20/21 21:00 05/29/21 09:01 05/25/21 20:30 Propranolol HCl (Inderal La) 120 mg DAILY PO 05/21/21 09:00 05/25/21 08:38 Lactobacillus Rhamnosus (Culturelle) 1 cap BID PO 05/21/21 09:00 05/25/21 20:30 Ziprasidone (Geodon) 20 mg BID PO 05/21/21 21:00 05/24/21 16:35 DC 05/24/21 08:52 Vitamin D (Vitamin D3) 50,000 unit WEEKLY PO 05/28/21 09:00 Cyanocobalamin (Vitamin B-12) 1,000 mcg Q4WK IM 05/22/21 09:00 05/22/21 11:01 Ziprasidone (Geodon) 20 mg DAILY PO 05/25/21 09:00 05/25/21 08:38 Ziprasidone (Geodon) 40 mg 1700 PO 05/24/21 17:00 05/25/21 17:52 Mirtazapine (Remeron) 7.5 mg QHS PO 05/25/21 21:00 05/25/21 20:30 Current Medications Medications (Trade) Dose Ordered Sig/Ashley Route PRN Reason Start Time Stop Time Status Last Admin Dose Admin Ziprasidone (Geodon) 20 mg DAILY PO 05/25/21 09:00 05/25/21 08:38 Mirtazapine (Remeron) 7.5 mg QHS PO 05/25/21 21:00 05/25/21 20:30 I have reviewed the current psychotropics carefully including drug interactions. Risk benefit ratio favors no change other than as noted in my dictated progress note. Diagnosis: Problems: (1) Anxiety disorder, unspecified (2) Major depressive disorder with psychotic features (3) Bipolar disorder, current episode mixed, severe, with psychotic features (4) Psychotic disorder (5) Parkinson's disease MYNOR FBAIAN MD May 25, 2021 22:06
[2021-05-26 05:41] VITALS: BP 96/54
[2021-05-26] MEDS: PROPRANOLOL ER 60 MG CAP.SA.24H. PO SCH (08:47)
[2021-05-26] MEDS: lamoTRIgine 100 MG TABLET. PO SCH ×2 (08:48→20:14)
[2021-05-26] MEDS: LACTOBACILLUS RHAMNOSUS GG 1 CAPSULE. PO SCH ×2 (08:48→20:14)
[2021-05-26] MEDS: CARBIDOPA/LEVODOPA 25/100MG TABLET PO SCH ×3 (08:48→20:14)
[2021-05-26] MEDS: DOXYCYCLINE HYCLATE 100 MG TABLET PO SCH ×2 (08:48→20:14)
[2021-05-26] MEDS: ZIPRASIDONE 20 MG CAPSULE. PO SCH (08:48)
--- NOTE | 2021-05-26 12:22 | NUR ---
Nursing note: Patient in dinning room at time of AM med pass and assessment, medication taken whole. She is oriented times 4. Patient is calm, cooperative & pleasant. Interacts with peers & staff. Patient denies SI/HI/pain/discomfort at this time. She reported she is having AH that tells her to smother herself. She stated she knows not to listen to the voices. Patient ambulate independently. She is currently sitting in the dinning room. Will continue to monitor.
--- NOTE | 2021-05-26 14:22 | NUR ---
MONE provided an update to Awilda, Iad's daughter. Awilda will be involved in team meeting on 05/28/21 via phone. Awilda plans to visit Ida on 05/30/21 at 10:30am.
[2021-05-26 15:35] VITALS: BP 94/62
[2021-05-26] MEDS: ZIPRASIDONE 40 MG CAPSULE. PO SCH (17:34)
[2021-05-26] MEDS: MIRTAZAPINE 7.5 MG TABLET. PO SCH (20:14)
[2021-05-26] MEDS: PRIMIDONE 50 MG TABLET PO SCH (20:14)
--- NOTE | 2021-05-26 21:57 | PDOC ---
Exam Note: Bran Note: Please also refer to the separate dictated note~for this date of service dictated separately.~Patient seen individually. Discussed the patient with Nursing staff reviewed the chart.~Reviewed interim history and current functioning. Reviewed vital signs,~Labs/ Radiology~and current medications noted below. Continue current treatment with the changes noted in the dictated addendum note Assessment: Vital Signs/I&O: Vital Signs Date Time Temp Pulse Resp B/P (MAP) Pulse Ox O2 Delivery O2 Flow Rate FiO2 05/26/21 15:35 97.2 73 18 94/62 (73) 96 05/24/21 16:06 Room Air I & O 05/25/21 05/25/21 05/26/21 15:00 23:00 07:00 Intake Total 840 ml 480 ml Balance 840 ml 480 ml Current Medications: Meds: Current Medications Medications (Trade) Dose Ordered Sig/Ashley Route PRN Reason Start Time Stop Time Status Last Admin Dose Admin Acetaminophen (Tylenol) 650 mg PRN Q6HRS PRN PO MILD PAIN / TEMP > 100.3'F 05/19/21 19:45 Multi-Ingredient Ointment (Analgesic [place]) 1 rayo PRN QID PRN TP MUSCLE PAIN 05/19/21 19:45 Al Hydroxide/Mg Hydroxide (Mylanta Plus Xs) 15 ml PRN AFTMEALHC PRN PO DYSPEPSIA 05/19/21 19:45 Magnesium Hydroxide (Milk Of Magnesia) 2,400 mg PRN QHS PRN PO CONSTIPATION 05/19/21 19:45 05/19/21 23:53 Carbidopa/Levodopa (Sinemet 25/100) 0.5 tab TID PO 05/20/21 21:00 05/26/21 20:14 Lamotrigine (LaMICtal) 100 mg BID PO 05/20/21 21:00 05/26/21 20:14 Primidone (Mysoline) 100 mg QHS PO 05/20/21 21:00 05/26/21 20:14 Non-Formulary Medication (Asenapine Maleate (Saphris)) 10 mg BID SL 05/20/21 21:00 05/25/21 12:51 DC 05/23/21 08:51 Non-Formulary Medication (Lumateperone Tosylate (Caplyta)) 42 mg DAILY PO 05/21/21 09:00 05/25/21 12:51 DC Lurasidone HCl (Latuda) 20 mg DAILYWBKFT PO 05/21/21 08:00 05/22/21 17:21 DC 05/21/21 08:25 Non-Formulary Medication ([propranolol ER] ) 120 mg DAILY PO 05/21/21 09:00 UNV Doxycycline Hyclate (Vibra-Tab) 100 mg BID PO 05/20/21 21:00 05/29/21 09:01 05/26/21 20:14 Propranolol HCl (Inderal La) 120 mg DAILY PO 05/21/21 09:00 05/25/21 08:38 Lactobacillus Rhamnosus (Culturelle) 1 cap BID PO 05/21/21 09:00 05/26/21 20:14 Ziprasidone (Geodon) 20 mg BID PO 05/21/21 21:00 05/24/21 16:35 DC 05/24/21 08:52 Vitamin D (Vitamin D3) 50,000 unit WEEKLY PO 05/28/21 09:00 Cyanocobalamin (Vitamin B-12) 1,000 mcg Q4WK IM 05/22/21 09:00 05/22/21 11:01 Ziprasidone (Geodon) 20 mg DAILY PO 05/25/21 09:00 05/26/21 17:51 DC 05/26/21 08:48 Ziprasidone (Geodon) 40 mg 1700 PO 05/24/21 17:00 05/26/21 17:51 DC 05/26/21 17:34 Mirtazapine (Remeron) 7.5 mg QHS PO 05/25/21 21:00 05/26/21 20:14 Ziprasidone (Geodon) 40 mg 0900,1700 PO 05/27/21 09:00 I have reviewed the current psychotropics carefully including drug interactions. Risk benefit ratio favors no change other than as noted in my dictated progress note. Diagnosis: Problems: (1) Anxiety disorder, unspecified (2) Major depressive disorder with psychotic features (3) Bipolar disorder, current episode mixed, severe, with psychotic features (4) Psychotic disorder (5) Parkinson's disease MYNOR FABIAN MD May 26, 2021 21:57
--- NOTE | 2021-05-26 23:45 | NUR ---
Pt in the day room, socializing with peers when approached. Pt calm, interactive, and appropriate. Pt reports continued auditory hallucinations telling her to smother herself but knows not to listen to them. Pt cooperative with assessment and compliant with medications administered whole. Denies SI at this time.
[2021-05-27 05:18] VITALS: BP 107/70
[2021-05-27 06:33] LABS: BASO % 0 % (0-3); EOS # 0.1 x10^3/uL (0.0-0.7); EOS % 2 % (0-3); HEMATOCRIT 32.1 % (36.0-47.0); HEMOGLOBIN 10.8 g/dL (12.0-15.5); LYMPH # 2.3 x10^3/uL (1.0-4.8); LYMPH % 35 % (24-48); MEAN CORPUSCULAR HEMOGLOBIN 32 pg (25-35); MEAN CORPUSCULAR HGB CONC 34 g/dL (31-37); MEAN CORPUSCULAR VOLUME 94 fL (79-100); MONO # 0.5 x10^3/uL (0.0-1.1); MONO % 7 % (0-9); NEUT # 3.7 x10^3uL (1.8-7.7); NEUT % 56 % (31-73); PLATELET COUNT 223 x10^3/uL (140-400); RED BLOOD COUNT 3.41 x10^6/uL (3.50-5.40); RED CELL DISTRIBUTION WIDTH 13.7 % (11.5-14.5); WHITE BLOOD COUNT 6.6 x10^3/uL (4.0-11.0)
[2021-05-27 06:53] LABS: ALBUMIN 2.8 g/dL (3.4-5.0); ALBUMIN/GLOBULIN RATIO 0.9 (1.0-1.7); GFR 56.6; POTASSIUM 4.1 mmol/L (3.5-5.1); TOTAL BILIRUBIN 0.5 mg/dL (0.2-1.0); TOTAL PROTEIN 5.9 g/dL (6.4-8.2)
[2021-05-27] MEDS: ZIPRASIDONE 40 MG CAPSULE. PO SCH ×2 (08:21→17:32)
[2021-05-27] MEDS: DOXYCYCLINE HYCLATE 100 MG TABLET PO SCH ×2 (08:21→20:40)
[2021-05-27] MEDS: LACTOBACILLUS RHAMNOSUS GG 1 CAPSULE. PO SCH ×2 (08:21→20:40)
[2021-05-27] MEDS: PROPRANOLOL ER 60 MG CAP.SA.24H. PO SCH (08:22)
[2021-05-27] MEDS: lamoTRIgine 100 MG TABLET. PO SCH ×2 (08:22→20:40)
[2021-05-27] MEDS: CARBIDOPA/LEVODOPA 25/100MG TABLET PO SCH ×3 (08:22→20:41)
--- NOTE | 2021-05-27 08:24 | PDOC ---
Exam Note: Bran Note: This note is a late entry for 05/25/2021 covers elements not covered in my initial note. Subjective: The patient was seen individually in the evening of 05/25/2021 with Angelia NAVARRO, discussed and reviewed the chart. The patient slept 4-1/4 hours previous night. No hallucinations today per nursing staff, but as I met with her in the evening she stated she was still hearing voices telling her to kill herself but she was acting up on that. Review of Systems: Positive for parkinsonian tremors. No CV, , pulmonary, eye, ENT system symptoms on review. Mental Status Exam: The patient is reasonably oriented. I met with her in the dayroom. She was pleasant, verbal, interactive, and smiling. Speech is coherent. Abstraction fair. Computation impaired. Language function intact. No suicidal or homicidal ideation. Laboratory Data: Reviewed. Impression: Major depressive disorder with psychotic features. Bipolar disorder, mixed with psychotic features. Anxiety disorder unspecified. Parkinsons disease. Psychotic disorder unspecified. Plan: We discussed her current psychotropics and the fact that we are checking the EKG each time before increasing the dosage of Geodon. She was agreeable to this. We will start her on Remeron 7.5 mg p.o. h.s. to help with insomnia and may help with anxiety as well. Maintain Geodon 20 mg a.m. and 40 mg h.s. Lamictal at current dosage and adjust further as clinically indicated. Assessment: Vital Signs/I&O: Vital Signs Date Time Temp Pulse Resp B/P (MAP) Pulse Ox O2 Delivery O2 Flow Rate FiO2 05/27/21 05:18 98.6 68 18 107/70 (82) 96 Room Air I & O 05/26/21 05/26/21 05/27/21 15:00 23:00 07:00 Intake Total 1360 ml 360 ml Balance 1360 ml 360 ml Labs: Laboratory Tests Test 05/27/21 06:00 White Blood Count 6.6 x10^3/uL (4.0-11.0) Red Blood Count 3.41 x10^6/uL (3.50-5.40) L Hemoglobin 10.8 g/dL (12.0-15.5) L Hematocrit 32.1 % (36.0-47.0) L Mean Corpuscular Volume 94 fL (79-100) Mean Corpuscular Hemoglobin 32 pg (25-35) Mean Corpuscular Hemoglobin Concent 34 g/dL (31-37) Red Cell Distribution Width 13.7 % (11.5-14.5) Platelet Count 223 x10^3/uL (140-400) Neutrophils (%) (Auto) 56 % (31-73) Lymphocytes (%) (Auto) 35 % (24-48) Monocytes (%) (Auto) 7 % (0-9) Eosinophils (%) (Auto) 2 % (0-3) Basophils (%) (Auto) 0 % (0-3) Neutrophils # (Auto) 3.7 x10^3uL (1.8-7.7) Lymphocytes # (Auto) 2.3 x10^3/uL (1.0-4.8) Monocytes # (Auto) 0.5 x10^3/uL (0.0-1.1) Eosinophils # (Auto) 0.1 x10^3/uL (0.0-0.7) Basophils # (Auto) 0.0 x10^3/uL (0.0-0.2) Sodium Level 143 mmol/L (136-145) Potassium Level 4.1 mmol/L (3.5-5.1) Chloride Level 105 mmol/L (98-107) Carbon Dioxide Level 29 mmol/L (21-32) Anion Gap 9 (6-14) Blood Urea Nitrogen 20 mg/dL (7-20) Creatinine 1.0 mg/dL (0.6-1.0) Estimated GFR (Cockcroft-Gault) 56.6 BUN/Creatinine Ratio 20 (6-20) Glucose Level 87 mg/dL (70-99) Calcium Level 8.0 mg/dL (8.5-10.1) L Total Bilirubin 0.5 mg/dL (0.2-1.0) Aspartate Amino Transferase (AST) 10 U/L (15-37) L Alanine Aminotransferase (ALT) 14 U/L (14-59) Alkaline Phosphatase 59 U/L (46-116) Total Protein 5.9 g/dL (6.4-8.2) L Albumin 2.8 g/dL (3.4-5.0) L Albumin/Globulin Ratio 0.9 (1.0-1.7) L Current Medications: Meds: Laboratory Tests Test 05/27/21 06:00 White Blood Count 6.6 x10^3/uL Red Blood Count 3.41 x10^6/uL Hemoglobin 10.8 g/dL Hematocrit 32.1 % Mean Corpuscular Volume 94 fL Mean Corpuscular Hemoglobin 32 pg Mean Corpuscular Hemoglobin Concent 34 g/dL Red Cell Distribution Width 13.7 % Platelet Count 223 x10^3/uL Neutrophils (%) (Auto) 56 % Lymphocytes (%) (Auto) 35 % Monocytes (%) (Auto) 7 % Eosinophils (%) (Auto) 2 % Basophils (%) (Auto) 0 % Neutrophils # (Auto) 3.7 x10^3uL Lymphocytes # (Auto) 2.3 x10^3/uL Monocytes # (Auto) 0.5 x10^3/uL Eosinophils # (Auto) 0.1 x10^3/uL Basophils # (Auto) 0.0 x10^3/uL Sodium Level 143 mmol/L Potassium Level 4.1 mmol/L Chloride Level 105 mmol/L Carbon Dioxide Level 29 mmol/L Anion Gap 9 Blood Urea Nitrogen 20 mg/dL Creatinine 1.0 mg/dL Estimated GFR (Cockcroft-Gault) 56.6 BUN/Creatinine Ratio 20 Glucose Level 87 mg/dL Calcium Level 8.0 mg/dL Total Bilirubin 0.5 mg/dL Aspartate Amino Transf (AST/SGOT) 10 U/L Alanine Aminotransferase (ALT/SGPT) 14 U/L Alkaline Phosphatase 59 U/L Total Protein 5.9 g/dL Albumin 2.8 g/dL Albumin/Globulin Ratio 0.9 Current Medications Medications (Trade) Dose Ordered Sig/Ashley Route PRN Reason Start Time Stop Time Status Last Admin Dose Admin Acetaminophen (Tylenol) 650 mg PRN Q6HRS PRN PO MILD PAIN / TEMP > 100.3'F 05/19/21 19:45 Multi-Ingredient Ointment (Analgesic [place]) 1 rayo PRN QID PRN TP MUSCLE PAIN 05/19/21 19:45 Al Hydroxide/Mg Hydroxide (Mylanta Plus Xs) 15 ml PRN AFTMEALHC PRN PO DYSPEPSIA 05/19/21 19:45 Magnesium Hydroxide (Milk Of Magnesia) 2,400 mg PRN QHS PRN PO CONSTIPATION 05/19/21 19:45 7/13/21 23:53 Carbidopa/Levodopa (Sinemet 25/100) 0.5 tab TID PO 05/20/21 21:00 05/26/21 20:14 Lamotrigine (LaMICtal) 100 mg BID PO 05/20/21 21:00 05/26/21 20:14 Primidone (Mysoline) 100 mg QHS PO 05/20/21 21:00 05/26/21 20:14 Non-Formulary Medication (Asenapine Maleate (Saphris)) 10 mg BID SL 05/20/21 21:00 05/25/21 12:51 DC 05/23/21 08:51 Non-Formulary Medication (Lumateperone Tosylate (Caplyta)) 42 mg DAILY PO 05/21/21 09:00 05/25/21 12:51 DC Lurasidone HCl (Latuda) 20 mg DAILYWBKFT PO 05/21/21 08:00 05/22/21 17:21 DC 05/21/21 08:25 Non-Formulary Medication ([propranolol ER] ) 120 mg DAILY PO 05/21/21 09:00 UNV Doxycycline Hyclate (Vibra-Tab) 100 mg BID PO 05/20/21 21:00 05/29/21 09:01 05/26/21 20:14 Propranolol HCl (Inderal La) 120 mg DAILY PO 05/21/21 09:00 05/25/21 08:38 Lactobacillus Rhamnosus (Culturelle) 1 cap BID PO 05/21/21 09:00 05/26/21 20:14 Ziprasidone (Geodon) 20 mg BID PO 05/21/21 21:00 05/24/21 16:35 DC 05/24/21 08:52 Vitamin D (Vitamin D3) 50,000 unit WEEKLY PO 05/28/21 09:00 Cyanocobalamin (Vitamin B-12) 1,000 mcg Q4WK IM 05/22/21 09:00 05/22/21 11:01 Ziprasidone (Geodon) 20 mg DAILY PO 05/25/21 09:00 05/26/21 17:51 DC 05/26/21 08:48 Ziprasidone (Geodon) 40 mg 1700 PO 05/24/21 17:00 05/26/21 17:51 DC 05/26/21 17:34 Mirtazapine (Remeron) 7.5 mg QHS PO 05/25/21 21:00 05/26/21 20:14 Ziprasidone (Geodon) 40 mg 0900,1700 PO 05/27/21 09:00 I have reviewed the current psychotropics carefully including drug interactions. Risk benefit ratio favors no change other than as noted in my dictated progress note. Diagnosis: Problems: (1) Anxiety disorder, unspecified (2) Major depressive disorder with psychotic features (3) Bipolar disorder, current episode mixed, severe, with psychotic features (4) Psychotic disorder (5) Parkinson's disease MYNOR FABIAN MD May 27, 2021 08:24
--- NOTE | 2021-05-27 08:52 | PDOC ---
Exam Note: Bran Note: This note is a late entry for 05/26/2021 covers elements not covered in my initial note. Subjective: The patient was seen individually in the evening of 05/26/2021 with Angelia NAVARRO, discussed and reviewed the chart. The patient slept 6 hours previous night. She still complains of hearing voices and is made vague statements of having suicidal ideation without plans or intent. We will check EKG for QT corrected interval in 2 days and we are increasing Geodon from 60 mg a day to 40 mg b.i.d. Review of Systems: Positive for parkinsonian tremors. No CV, , pulmonary, eye, ENT system symptoms on review. Mental Status Exam: The patient is reasonably oriented. She did voice fleeting suicidal ideation without plans or intent. Speech is coherent. Abstraction fair. Computation impaired. Language function intact. Attention span short, little more dysphoric today. No suicidal or homicidal ideation. Laboratory Data: Reviewed. Impression: Major depressive disorder with psychotic features. Bipolar disorder, mixed with psychotic features. Anxiety disorder unspecified. Parkinsons disease. Psychotic disorder unspecified. Plan: No change from initial note. Assessment: Vital Signs/I&O: Vital Signs Date Time Temp Pulse Resp B/P (MAP) Pulse Ox O2 Delivery O2 Flow Rate FiO2 05/27/21 08:22 68 107/70 05/27/21 05:18 98.6 18 96 Room Air I & O 05/26/21 05/26/21 05/27/21 15:00 23:00 07:00 Intake Total 1360 ml 360 ml Balance 1360 ml 360 ml Labs: Laboratory Tests Test 05/27/21 06:00 White Blood Count 6.6 x10^3/uL (4.0-11.0) Red Blood Count 3.41 x10^6/uL (3.50-5.40) L Hemoglobin 10.8 g/dL (12.0-15.5) L Hematocrit 32.1 % (36.0-47.0) L Mean Corpuscular Volume 94 fL (79-100) Mean Corpuscular Hemoglobin 32 pg (25-35) Mean Corpuscular Hemoglobin Concent 34 g/dL (31-37) Red Cell Distribution Width 13.7 % (11.5-14.5) Platelet Count 223 x10^3/uL (140-400) Neutrophils (%) (Auto) 56 % (31-73) Lymphocytes (%) (Auto) 35 % (24-48) Monocytes (%) (Auto) 7 % (0-9) Eosinophils (%) (Auto) 2 % (0-3) Basophils (%) (Auto) 0 % (0-3) Neutrophils # (Auto) 3.7 x10^3uL (1.8-7.7) Lymphocytes # (Auto) 2.3 x10^3/uL (1.0-4.8) Monocytes # (Auto) 0.5 x10^3/uL (0.0-1.1) Eosinophils # (Auto) 0.1 x10^3/uL (0.0-0.7) Basophils # (Auto) 0.0 x10^3/uL (0.0-0.2) Sodium Level 143 mmol/L (136-145) Potassium Level 4.1 mmol/L (3.5-5.1) Chloride Level 105 mmol/L (98-107) Carbon Dioxide Level 29 mmol/L (21-32) Anion Gap 9 (6-14) Blood Urea Nitrogen 20 mg/dL (7-20) Creatinine 1.0 mg/dL (0.6-1.0) Estimated GFR (Cockcroft-Gault) 56.6 BUN/Creatinine Ratio 20 (6-20) Glucose Level 87 mg/dL (70-99) Calcium Level 8.0 mg/dL (8.5-10.1) L Total Bilirubin 0.5 mg/dL (0.2-1.0) Aspartate Amino Transferase (AST) 10 U/L (15-37) L Alanine Aminotransferase (ALT) 14 U/L (14-59) Alkaline Phosphatase 59 U/L (46-116) Total Protein 5.9 g/dL (6.4-8.2) L Albumin 2.8 g/dL (3.4-5.0) L Albumin/Globulin Ratio 0.9 (1.0-1.7) L Current Medications: Meds: Laboratory Tests Test 05/27/21 06:00 White Blood Count 6.6 x10^3/uL Red Blood Count 3.41 x10^6/uL Hemoglobin 10.8 g/dL Hematocrit 32.1 % Mean Corpuscular Volume 94 fL Mean Corpuscular Hemoglobin 32 pg Mean Corpuscular Hemoglobin Concent 34 g/dL Red Cell Distribution Width 13.7 % Platelet Count 223 x10^3/uL Neutrophils (%) (Auto) 56 % Lymphocytes (%) (Auto) 35 % Monocytes (%) (Auto) 7 % Eosinophils (%) (Auto) 2 % Basophils (%) (Auto) 0 % Neutrophils # (Auto) 3.7 x10^3uL Lymphocytes # (Auto) 2.3 x10^3/uL Monocytes # (Auto) 0.5 x10^3/uL Eosinophils # (Auto) 0.1 x10^3/uL Basophils # (Auto) 0.0 x10^3/uL Sodium Level 143 mmol/L Potassium Level 4.1 mmol/L Chloride Level 105 mmol/L Carbon Dioxide Level 29 mmol/L Anion Gap 9 Blood Urea Nitrogen 20 mg/dL Creatinine 1.0 mg/dL Estimated GFR (Cockcroft-Gault) 56.6 BUN/Creatinine Ratio 20 Glucose Level 87 mg/dL Calcium Level 8.0 mg/dL Total Bilirubin 0.5 mg/dL Aspartate Amino Transf (AST/SGOT) 10 U/L Alanine Aminotransferase (ALT/SGPT) 14 U/L Alkaline Phosphatase 59 U/L Total Protein 5.9 g/dL Albumin 2.8 g/dL Albumin/Globulin Ratio 0.9 Current Medications Medications (Trade) Dose Ordered Sig/Ashley Route PRN Reason Start Time Stop Time Status Last Admin Dose Admin Acetaminophen (Tylenol) 650 mg PRN Q6HRS PRN PO MILD PAIN / TEMP > 100.3'F 05/19/21 19:45 Multi-Ingredient Ointment (Analgesic [place]) 1 rayo PRN QID PRN TP MUSCLE PAIN 05/19/21 19:45 Al Hydroxide/Mg Hydroxide (Mylanta Plus Xs) 15 ml PRN AFTMEALHC PRN PO DYSPEPSIA 05/19/21 19:45 Magnesium Hydroxide (Milk Of Magnesia) 2,400 mg PRN QHS PRN PO CONSTIPATION 05/19/21 19:45 05/19/21 23:53 Carbidopa/Levodopa (Sinemet 25/100) 0.5 tab TID PO 05/20/21 21:00 05/27/21 08:22 Lamotrigine (LaMICtal) 100 mg BID PO 05/20/21 21:00 05/27/21 08:22 Primidone (Mysoline) 100 mg QHS PO 05/20/21 21:00 05/26/21 20:14 Non-Formulary Medication (Asenapine Maleate (Saphris)) 10 mg BID SL 05/20/21 21:00 05/25/21 12:51 DC 05/23/21 08:51 Non-Formulary Medication (Lumateperone Tosylate (Caplyta)) 42 mg DAILY PO 05/21/21 09:00 05/25/21 12:51 DC Lurasidone HCl (Latuda) 20 mg DAILYWBKFT PO 05/21/21 08:00 05/22/21 17:21 DC 05/21/21 08:25 Non-Formulary Medication ([propranolol ER] ) 120 mg DAILY PO 05/21/21 09:00 UNV Doxycycline Hyclate (Vibra-Tab) 100 mg BID PO 05/20/21 21:00 05/29/21 09:01 05/27/21 08:21 Propranolol HCl (Inderal La) 120 mg DAILY PO 05/21/21 09:00 05/27/21 08:22 Lactobacillus Rhamnosus (Culturelle) 1 cap BID PO 05/21/21 09:00 05/27/21 08:21 Ziprasidone (Geodon) 20 mg BID PO 05/21/21 21:00 05/24/21 16:35 DC 05/24/21 08:52 Vitamin D (Vitamin D3) 50,000 unit WEEKLY PO 05/28/21 09:00 Cyanocobalamin (Vitamin B-12) 1,000 mcg Q4WK IM 05/22/21 09:00 05/22/21 11:01 Ziprasidone (Geodon) 20 mg DAILY PO 05/25/21 09:00 05/26/21 17:51 DC 05/26/21 08:48 Ziprasidone (Geodon) 40 mg 1700 PO 05/24/21 17:00 05/26/21 17:51 DC 05/26/21 17:34 Mirtazapine (Remeron) 7.5 mg QHS PO 05/25/21 21:00 05/26/21 20:14 Ziprasidone (Geodon) 40 mg 0900,1700 PO 05/27/21 09:00 05/27/21 08:21 Current Medications Medications (Trade) Dose Ordered Sig/Ashley Route PRN Reason Start Time Stop Time Status Last Admin Dose Admin Ziprasidone (Geodon) 40 mg 0900,1700 PO 05/27/21 09:00 05/27/21 08:21 I have reviewed the current psychotropics carefully including drug interactions. Risk benefit ratio favors no change other than as noted in my dictated progress note. Diagnosis: Problems: (1) Anxiety disorder, unspecified (2) Major depressive disorder with psychotic features (3) Bipolar disorder, current episode mixed, severe, with psychotic features (4) Psychotic disorder (5) Parkinson's disease MYNOR FABIAN MD May 27, 2021 08:52
--- NOTE | 2021-05-27 14:21 | NUR ---
Nursing note: Patient in dinning room at time of AM med pass and assessment, medication taken whole. She is oriented times 4. Patient is calm, cooperative & pleasant. Interacts with peers & staff. Patient denies HI/pain/discomfort at this time. She reported she is having AH that tells her to smother herself. She stated she knows not to listen to the voices. She also voiced she was having SI, denies having a plan. Patient ambulates independently. She is currently sitting in the day room. Will continue to monitor.
[2021-05-27 15:45] VITALS: BP 94/64
--- NOTE | 2021-05-27 17:25 | NUR ---
MONE followed up on the call made to pt dtr yesterday to ensure there were no further questions or updates wanted on pt care. MONE confirmed pt dtr wanting to participate in tx team but did cancel the visit scheduled for Tuesday as the hospital is ceasing all visits at this time. Pt dtr understands and will wait to hear from SW tomorrrow.
[2021-05-27] MEDS: PRIMIDONE 50 MG TABLET PO SCH (20:40)
[2021-05-27] MEDS: MIRTAZAPINE 7.5 MG TABLET. PO SCH (20:40)
[2021-05-27] MEDS ORDERED: traZODone 100 MG TABLET. PO PRN (22:15)
--- NOTE | 2021-05-27 22:24 | PDOC ---
Exam Note: Bran Note: Please also refer to the separate dictated note~for this date of service dictated separately.~Patient seen individually. Discussed the patient with Nursing staff reviewed the chart.~Reviewed interim history and current functioning. Reviewed vital signs,~Labs/ Radiology~and current medications noted below. Continue current treatment with the changes noted in the dictated addendum note Assessment: Vital Signs/I&O: Vital Signs Date Time Temp Pulse Resp B/P (MAP) Pulse Ox O2 Delivery O2 Flow Rate FiO2 05/27/21 15:45 97.9 67 18 94/64 (74) 96 05/27/21 05:18 Room Air I & O 05/26/21 05/26/21 05/27/21 15:00 23:00 07:00 Intake Total 1360 ml 360 ml Balance 1360 ml 360 ml Labs: Laboratory Tests Test 05/27/21 06:00 White Blood Count 6.6 x10^3/uL (4.0-11.0) Red Blood Count 3.41 x10^6/uL (3.50-5.40) L Hemoglobin 10.8 g/dL (12.0-15.5) L Hematocrit 32.1 % (36.0-47.0) L Mean Corpuscular Volume 94 fL (79-100) Mean Corpuscular Hemoglobin 32 pg (25-35) Mean Corpuscular Hemoglobin Concent 34 g/dL (31-37) Red Cell Distribution Width 13.7 % (11.5-14.5) Platelet Count 223 x10^3/uL (140-400) Neutrophils (%) (Auto) 56 % (31-73) Lymphocytes (%) (Auto) 35 % (24-48) Monocytes (%) (Auto) 7 % (0-9) Eosinophils (%) (Auto) 2 % (0-3) Basophils (%) (Auto) 0 % (0-3) Neutrophils # (Auto) 3.7 x10^3uL (1.8-7.7) Lymphocytes # (Auto) 2.3 x10^3/uL (1.0-4.8) Monocytes # (Auto) 0.5 x10^3/uL (0.0-1.1) Eosinophils # (Auto) 0.1 x10^3/uL (0.0-0.7) Basophils # (Auto) 0.0 x10^3/uL (0.0-0.2) Sodium Level 143 mmol/L (136-145) Potassium Level 4.1 mmol/L (3.5-5.1) Chloride Level 105 mmol/L (98-107) Carbon Dioxide Level 29 mmol/L (21-32) Anion Gap 9 (6-14) Blood Urea Nitrogen 20 mg/dL (7-20) Creatinine 1.0 mg/dL (0.6-1.0) Estimated GFR (Cockcroft-Gault) 56.6 BUN/Creatinine Ratio 20 (6-20) Glucose Level 87 mg/dL (70-99) Calcium Level 8.0 mg/dL (8.5-10.1) L Total Bilirubin 0.5 mg/dL (0.2-1.0) Aspartate Amino Transferase (AST) 10 U/L (15-37) L Alanine Aminotransferase (ALT) 14 U/L (14-59) Alkaline Phosphatase 59 U/L (46-116) Total Protein 5.9 g/dL (6.4-8.2) L Albumin 2.8 g/dL (3.4-5.0) L Albumin/Globulin Ratio 0.9 (1.0-1.7) L Current Medications: Meds: Laboratory Tests Test 05/27/21 06:00 White Blood Count 6.6 x10^3/uL Red Blood Count 3.41 x10^6/uL Hemoglobin 10.8 g/dL Hematocrit 32.1 % Mean Corpuscular Volume 94 fL Mean Corpuscular Hemoglobin 32 pg Mean Corpuscular Hemoglobin Concent 34 g/dL Red Cell Distribution Width 13.7 % Platelet Count 223 x10^3/uL Neutrophils (%) (Auto) 56 % Lymphocytes (%) (Auto) 35 % Monocytes (%) (Auto) 7 % Eosinophils (%) (Auto) 2 % Basophils (%) (Auto) 0 % Neutrophils # (Auto) 3.7 x10^3uL Lymphocytes # (Auto) 2.3 x10^3/uL Monocytes # (Auto) 0.5 x10^3/uL Eosinophils # (Auto) 0.1 x10^3/uL Basophils # (Auto) 0.0 x10^3/uL Sodium Level 143 mmol/L Potassium Level 4.1 mmol/L Chloride Level 105 mmol/L Carbon Dioxide Level 29 mmol/L Anion Gap 9 Blood Urea Nitrogen 20 mg/dL Creatinine 1.0 mg/dL Estimated GFR (Cockcroft-Gault) 56.6 BUN/Creatinine Ratio 20 Glucose Level 87 mg/dL Calcium Level 8.0 mg/dL Total Bilirubin 0.5 mg/dL Aspartate Amino Transf (AST/SGOT) 10 U/L Alanine Aminotransferase (ALT/SGPT) 14 U/L Alkaline Phosphatase 59 U/L Total Protein 5.9 g/dL Albumin 2.8 g/dL Albumin/Globulin Ratio 0.9 Current Medications Medications (Trade) Dose Ordered Sig/Ashley Route PRN Reason Start Time Stop Time Status Last Admin Dose Admin Acetaminophen (Tylenol) 650 mg PRN Q6HRS PRN PO MILD PAIN / TEMP > 100.3'F 05/19/21 19:45 Multi-Ingredient Ointment (Analgesic [place]) 1 rayo PRN QID PRN TP MUSCLE PAIN 05/19/21 19:45 Al Hydroxide/Mg Hydroxide (Mylanta Plus Xs) 15 ml PRN AFTMEALHC PRN PO DYSPEPSIA 05/19/21 19:45 Magnesium Hydroxide (Milk Of Magnesia) 2,400 mg PRN QHS PRN PO CONSTIPATION 05/19/21 19:45 05/19/21 23:53 Carbidopa/Levodopa (Sinemet 25/100) 0.5 tab TID PO 05/20/21 21:00 05/27/21 20:41 Lamotrigine (LaMICtal) 100 mg BID PO 05/20/21 21:00 05/27/21 20:40 Primidone (Mysoline) 100 mg QHS PO 05/20/21 21:00 05/27/21 20:40 Non-Formulary Medication (Asenapine Maleate (Saphris)) 10 mg BID SL 05/20/21 21:00 05/25/21 12:51 DC 05/23/21 08:51 Non-Formulary Medication (Lumateperone Tosylate (Caplyta)) 42 mg DAILY PO 05/21/21 09:00 05/25/21 12:51 DC Lurasidone HCl (Latuda) 20 mg DAILYWBKFT PO 05/21/21 08:00 05/22/21 17:21 DC 05/21/21 08:25 Non-Formulary Medication ([propranolol ER] ) 120 mg DAILY PO 05/21/21 09:00 UNV Doxycycline Hyclate (Vibra-Tab) 100 mg BID PO 05/20/21 21:00 05/29/21 09:01 05/27/21 20:40 Propranolol HCl (Inderal La) 120 mg DAILY PO 05/21/21 09:00 05/27/21 08:22 Lactobacillus Rhamnosus (Culturelle) 1 cap BID PO 05/21/21 09:00 05/27/21 20:40 Ziprasidone (Geodon) 20 mg BID PO 05/21/21 21:00 05/24/21 16:35 DC 05/24/21 08:52 Vitamin D (Vitamin D3) 50,000 unit WEEKLY PO 05/28/21 09:00 Cyanocobalamin (Vitamin B-12) 1,000 mcg Q4WK IM 05/22/21 09:00 05/22/21 11:01 Ziprasidone (Geodon) 20 mg DAILY PO 05/25/21 09:00 05/26/21 17:51 DC 05/26/21 08:48 Ziprasidone (Geodon) 40 mg 1700 PO 05/24/21 17:00 05/26/21 17:51 DC 05/26/21 17:34 Mirtazapine (Remeron) 7.5 mg QHS PO 05/25/21 21:00 05/27/21 20:40 Ziprasidone (Geodon) 40 mg 0900,1700 PO 05/27/21 09:00 05/27/21 17:32 Trazodone HCl (Desyrel) 100 mg QHS PO 05/27/21 22:15 Trazodone HCl (Desyrel) 100 mg PRN QHS PRN PO Insomnia 05/27/21 22:15 Current Medications Medications (Trade) Dose Ordered Sig/Ashley Route PRN Reason Start Time Stop Time Status Last Admin Dose Admin Ziprasidone (Geodon) 40 mg 0900,1700 PO 05/27/21 09:00 05/27/21 17:32 I have reviewed the current psychotropics carefully including drug interactions. Risk benefit ratio favors no change other than as noted in my dictated progress note. Diagnosis: Problems: (1) Anxiety disorder, unspecified (2) Major depressive disorder with psychotic features (3) Bipolar disorder, current episode mixed, severe, with psychotic features (4) Psychotic disorder (5) Parkinson's disease MYNOR FABIAN MD May 27, 2021 22:24
[2021-05-27] MEDS: traZODone 100 MG TABLET. PO SCH (22:26)
--- NOTE | 2021-05-27 23:00 | NUR ---
Pt sitting in the day room, playing cards with peers when approached. Pt calm, interactive, and pleasant. Pt cooperative with assessment and compliant with medications administered whole. At HS, pt reports having SI thoughts with a plan to smother herself like the "voices" have been telling her. Dr. Reese notified immediately and new order received placing pt on 1:1 observation. New orders for Trazodone received as well. Pt informed of new orders and she stated "everyone will hate me now". Pt believes that staff will be upset because they have to sit with her. I assured her that this is not the case, we only want to keep her safe. Trazodone administered per Dr. Reese's order and pt currently resting in bed.
[2021-05-28 05:50] VITALS: BP 129/78
[2021-05-28] MEDS: lamoTRIgine 100 MG TABLET. PO SCH ×2 (08:35→20:25)
[2021-05-28] MEDS: LACTOBACILLUS RHAMNOSUS GG 1 CAPSULE. PO SCH ×2 (08:35→20:25)
[2021-05-28] MEDS: ZIPRASIDONE 40 MG CAPSULE. PO SCH (08:35)
[2021-05-28] MEDS: PROPRANOLOL ER 60 MG CAP.SA.24H. PO SCH (08:35)
[2021-05-28] MEDS: CARBIDOPA/LEVODOPA 25/100MG TABLET PO SCH ×3 (08:35→20:26)
[2021-05-28] MEDS: DOXYCYCLINE HYCLATE 100 MG TABLET PO SCH ×2 (08:35→20:25)
[2021-05-28] MEDS: CHOLECALCIFEROL (VITAMIN D3) 50,000 UNIT CAPSULE PO SCH (09:20)
--- NOTE | 2021-05-28 10:14 | EKG ---
[address] [address] Test Date: 2021-05-28 Test Time: 09:27:31 Pat Name: MODESTA BLANCO Department: Room: [address] [place] [address] Gender: F [employer]ough[employer] Machine Operator: : [id number] Requested By: MYNOR FABIAN Order Number: [id number] Reading MD: Measurements Intervals [place] Rate: 76 P: 59 OR: 140 QRS: 40 QRSD: 88 T: 58 QT: 400 QTc: 449 Interpretive Statements SINUS RHYTHM NORMAL ECG RI6.01 No previous ECG available for comparison
--- NOTE | 2021-05-28 10:32 | NUR ---
Treatment team note: Pt dtr participated in treatment team via phone. Pt is pleasant, interacts with peers and voicing daily hallucinations to hurt her roommate (who was moved out of her room) and herself. Last night she reported voices are telling her to hurt herself and last night reported that she would smother herself with a pillow. Currently, she will need to be in eyesight with staff for observation. Pt had an EKG this morning due to being on Geodon; in which the Geodon will be increased to 40mg q AM and 60mg @ HS. Pt participated in all groups this week with full participation. Pt dtr was able to give some background information on pt history; pt is to have a head CT ordered if one has not been completed. Pt wishes to return home with community services and SW will plan to work with pt on finalizing these discharge plans.
--- NOTE | 2021-05-28 12:13 | NUR ---
WEEKLY ACTIVITY THERAPY NOTE Date of Admission: 05/20/2021 Date of AT Assessment:05/22 Precipitating behaviors that initiated intake and admission: Auditory hallucinations (command to harm self), SI attempt, depression, insomnia Goal aimed:support socialization and engagement Initial Goal: Pt will participate in at least five group Activity Therapy sessions per week Weekly progress towards goal: Group participation level: 3 mod, 7 full Weekly highlights: discussion and cow trivia , exercise and picture puzzles Tuesday, planting strick[place] Tuesday, card game Tuesday, exercises and sentence starters Tuesday, patio time Tuesday, exercises Tuesday, songs and states Tuesday Behaviors observed: pleasant and social with staff and peers, independent Plan: Change goal to: Pt will participate in all Activity Therapy groups offered. Beneficial adaptations: socialization
[2021-05-28] MEDS ORDERED: IOHEXOL 350 MG/ML 100 ML VIAL. IV ONE (12:45)
--- NOTE | 2021-05-28 15:25 | RAD ---
EXAMINATION: CT HEAD/BRAIN WO (CT HEAD WITHOUT IV CONTRAST) CLINICAL HISTORY: Altered mental status TECHNIQUE: Serial axial images without IV contrast were obtained from the vertex to the foramen magnu m. CT Dose Reduction Employed: One or more of the following individualized dose reduction techniques wer e utilized for this examination: 1. Automated exposure control 2. Adjustment of the mA and/or kV ac cording to patient size 3. Use of iterative reconstruction technique. COMPARISON: None FINDINGS: Acute Change: No evidence of an acute infarct or other acute parenchymal process. Hemorrhage: No evidence of acute intracranial hemorrhage. Mass Lesion/Mass Effect: No evidence of intracranial mass or extraaxial fluid collection. No signific ant mass effect. Chronic Change: Atherosclerotic calcification of the bilateral carotid siphons. Parenchyma: Mild generalized volume loss. Parenchyma otherwise within normal limits for age. Ventricles: Ventricular enlargement concordant with degree of parenchymal volume loss. Paranasal Sinuses and Skull Base: Visualized paranasal sinuses clear. Visualized skull base and soft tissues unremarkable. IMPRESSION: No evidence of acute intracranial abnormality. Electronically signed by: Jet Peñaloza DO (05/28/2021 3:23 PM) [facility]
[2021-05-28 15:53] VITALS: BP 117/72
--- NOTE | 2021-05-28 16:54 | NUR ---
Nursing note: Patient in dinning room at time of AM med pass and assessment, medication taken whole. She is oriented times 4. Patient is calm, cooperative & pleasant. Interacts with peers & staff. Patient denies SI/HI/pain/discomfort at this time. She reported she is having AH that tells her to smother herself. She stated she knows not to listen to the voices. Patient ambulates independently. She is currently sitting in the day room. Will continue to monitor.
[2021-05-28] MEDS: ZIPRASIDONE 60 MG CAPSULE. PO SCH (17:33)
[2021-05-28] MEDS: traZODone 100 MG TABLET. PO SCH (20:25)
[2021-05-28] MEDS: PRIMIDONE 50 MG TABLET PO SCH (20:25)
[2021-05-28] MEDS: MIRTAZAPINE 7.5 MG TABLET. PO SCH (20:25)
--- NOTE | 2021-05-28 22:03 | PDOC ---
Exam Note: Bran Note: Please also refer to the separate dictated note~for this date of service dictated separately.~Patient seen individually. Discussed the patient with Nursing staff reviewed the chart.~Reviewed interim history and current functioning. Reviewed vital signs,~Labs/ Radiology~and current medications noted below. Continue current treatment with the changes noted in the dictated addendum note Assessment: Vital Signs/I&O: Vital Signs Date Time Temp Pulse Resp B/P (MAP) Pulse Ox O2 Delivery O2 Flow Rate FiO2 05/28/21 15:53 97.3 59 16 117/72 (87) 99 05/27/21 05:18 Room Air I & O 05/27/21 05/27/21 05/28/21 15:00 23:00 07:00 Intake Total 840 ml 240 ml 360 ml Balance 840 ml 240 ml 360 ml Current Medications: Meds: Current Medications Medications (Trade) Dose Ordered Sig/Ashley Route PRN Reason Start Time Stop Time Status Last Admin Dose Admin Acetaminophen (Tylenol) 650 mg PRN Q6HRS PRN PO MILD PAIN / TEMP > 100.3'F 05/19/21 19:45 Multi-Ingredient Ointment (Analgesic [place]) 1 rayo PRN QID PRN TP MUSCLE PAIN 05/19/21 19:45 Al Hydroxide/Mg Hydroxide (Mylanta Plus Xs) 15 ml PRN AFTMEALHC PRN PO DYSPEPSIA 05/19/21 19:45 Magnesium Hydroxide (Milk Of Magnesia) 2,400 mg PRN QHS PRN PO CONSTIPATION 05/19/21 19:45 05/19/21 23:53 Carbidopa/Levodopa (Sinemet 25/100) 0.5 tab TID PO 05/20/21 21:00 05/28/21 20:26 Lamotrigine (LaMICtal) 100 mg BID PO 05/20/21 21:00 05/28/21 20:25 Primidone (Mysoline) 100 mg QHS PO 05/20/21 21:00 05/28/21 20:25 Non-Formulary Medication (Asenapine Maleate (Saphris)) 10 mg BID SL 05/20/21 21:00 05/25/21 12:51 DC 05/23/21 08:51 Non-Formulary Medication (Lumateperone Tosylate (Caplyta)) 42 mg DAILY PO 05/21/21 09:00 05/25/21 12:51 DC Lurasidone HCl (Latuda) 20 mg DAILYWBKFT PO 05/21/21 08:00 05/22/21 17:21 DC 05/21/21 08:25 Non-Formulary Medication ([propranolol ER] ) 120 mg DAILY PO 05/21/21 09:00 UNV Doxycycline Hyclate (Vibra-Tab) 100 mg BID PO 05/20/21 21:00 05/29/21 09:01 05/28/21 20:25 Propranolol HCl (Inderal La) 120 mg DAILY PO 05/21/21 09:00 05/28/21 08:35 Lactobacillus Rhamnosus (Culturelle) 1 cap BID PO 05/21/21 09:00 05/28/21 20:25 Ziprasidone (Geodon) 20 mg BID PO 05/21/21 21:00 05/24/21 16:35 DC 05/24/21 08:52 Vitamin D (Vitamin D3) 50,000 unit WEEKLY PO 05/28/21 09:00 05/28/21 09:20 Cyanocobalamin (Vitamin B-12) 1,000 mcg Q4WK IM 05/22/21 09:00 05/22/21 11:01 Ziprasidone (Geodon) 20 mg DAILY PO 05/25/21 09:00 05/26/21 17:51 DC 05/26/21 08:48 Ziprasidone (Geodon) 40 mg 1700 PO 05/24/21 17:00 05/26/21 17:51 DC 05/26/21 17:34 Mirtazapine (Remeron) 7.5 mg QHS PO 05/25/21 21:00 05/28/21 20:25 Ziprasidone (Geodon) 40 mg 0900,1700 PO 05/27/21 09:00 05/28/21 10:53 DC 05/28/21 08:35 Trazodone HCl (Desyrel) 100 mg QHS PO 05/27/21 22:15 05/28/21 20:25 Trazodone HCl (Desyrel) 100 mg PRN QHS PRN PO Insomnia 05/27/21 22:15 Ziprasidone (Geodon) 40 mg 0900 PO 05/29/21 09:00 Ziprasidone (Geodon) 60 mg 1700 PO 05/28/21 17:00 05/28/21 17:33 Iohexol (Omnipaque 350 Mg/ml) 100 ml 1X ONCE IV 05/28/21 12:45 05/28/21 12:46 DC Current Medications Medications (Trade) Dose Ordered Sig/Ashley Route PRN Reason Start Time Stop Time Status Last Admin Dose Admin Vitamin D (Vitamin D3) 50,000 unit WEEKLY PO 05/28/21 09:00 05/28/21 09:20 Trazodone HCl (Desyrel) 100 mg QHS PO 05/27/21 22:15 05/28/21 20:25 Ziprasidone (Geodon) 60 mg 1700 PO 05/28/21 17:00 05/28/21 17:33 I have reviewed the current psychotropics carefully including drug interactions. Risk benefit ratio favors no change other than as noted in my dictated progress note. Diagnosis: Problems: (1) Anxiety disorder, unspecified (2) Major depressive disorder with psychotic features (3) Bipolar disorder, current episode mixed, severe, with psychotic features (4) Psychotic disorder (5) Parkinson's disease MYNOR FABIAN MD May 28, 2021 22:03
--- NOTE | 2021-05-28 22:26 | NUR ---
Pt sitting in day room, playing cards with peers when approached. Pt calm, social, and interactive. Pt denies SI at this time but reports still having AH telling her to smother herself but she is able to resist them. Pt cooperative with assessment and compliant with medications administered whole. 1:1 observation will be discontinued at this time.
[2021-05-29 06:46] VITALS: BP 87/55
[2021-05-29] MEDS: LACTOBACILLUS RHAMNOSUS GG 1 CAPSULE. PO SCH ×2 (08:43→20:38)
[2021-05-29] MEDS: CARBIDOPA/LEVODOPA 25/100MG TABLET PO SCH ×3 (08:43→20:39)
[2021-05-29] MEDS: lamoTRIgine 100 MG TABLET. PO SCH ×2 (08:43→20:39)
[2021-05-29] MEDS: ZIPRASIDONE 40 MG CAPSULE. PO SCH (08:43)
[2021-05-29] MEDS: DOXYCYCLINE HYCLATE 100 MG TABLET PO SCH (08:43)
[2021-05-29] MEDS: PROPRANOLOL ER 60 MG CAP.SA.24H. PO SCH (08:45)
--- NOTE | 2021-05-29 08:45 | PDOC ---
Exam Note: Bran Note: This note is a late entry for 05/27/2021 covers elements not covered in my initial note. Subjective: The patient was seen individually in the evening of 05/27/2021 with Angelia NAVARRO, discussed and reviewed the chart. The patient slept 6 hours previous night. Previous evening the patient was wanting her sleeping medications increased. She still complains of hearing voices, telling her to hurt herself but when I met with her in the evening she denied suicidal ideation. However, I was called by Jessie NAVARRO around 10.30 p.m. The patient was voicing active suicidal ideation in response to her auditory hallucinations and talking about wanting to smother herself. She was place on one-on-one status. She feels the voices are of the devil. Review of Systems: Positive for parkinsonian tremors. No CV, , pulmonary, eye, ENT system symptoms on review. Mental Status Exam: The patient is alert, oriented and cooperative. Speech is coherent. Abstraction fair. Computation impaired. Language function intact. Attention span short. Mood and affect somewhat depressed, withdrawn, still psychotic, distractible. Laboratory Data: Reviewed. Impression: Major depressive disorder with psychotic features. Bipolar disorder, mixed with psychotic features. Anxiety disorder unspecified. Parkinsons disease. Psychotic disorder unspecified. Plan: Continue current psychotropics. We may need to increase Geodon further post EKG being completed and QTc being normal. Assessment: Vital Signs/I&O: Vital Signs Date Time Temp Pulse Resp B/P (MAP) Pulse Ox O2 Delivery O2 Flow Rate FiO2 05/29/21 06:46 98.0 69 16 87/55 (66) 99 Room Air I & O 05/28/21 05/28/21 05/29/21 15:00 23:00 07:00 Intake Total 600 ml 680 ml Balance 600 ml 680 ml Current Medications: Meds: Current Medications Medications (Trade) Dose Ordered Sig/Ashley Route PRN Reason Start Time Stop Time Status Last Admin Dose Admin Acetaminophen (Tylenol) 650 mg PRN Q6HRS PRN PO MILD PAIN / TEMP > 100.3'F 05/19/21 19:45 Multi-Ingredient Ointment (Analgesic [place]) 1 rayo PRN QID PRN TP MUSCLE PAIN 05/19/21 19:45 Al Hydroxide/Mg Hydroxide (Mylanta Plus Xs) 15 ml PRN AFTMEALHC PRN PO DYSPEPSIA 05/19/21 19:45 Magnesium Hydroxide (Milk Of Magnesia) 2,400 mg PRN QHS PRN PO CONSTIPATION 05/19/21 19:45 05/19/21 23:53 Carbidopa/Levodopa (Sinemet 25/100) 0.5 tab TID PO 05/20/21 21:00 05/28/21 20:26 Lamotrigine (LaMICtal) 100 mg BID PO 05/20/21 21:00 05/28/21 20:25 Primidone (Mysoline) 100 mg QHS PO 05/20/21 21:00 05/28/21 20:25 Non-Formulary Medication (Asenapine Maleate (Saphris)) 10 mg BID SL 05/20/21 21:00 05/25/21 12:51 DC 05/23/21 08:51 Non-Formulary Medication (Lumateperone Tosylate (Caplyta)) 42 mg DAILY PO 05/21/21 09:00 05/25/21 12:51 DC Lurasidone HCl (Latuda) 20 mg DAILYWBKFT PO 05/21/21 08:00 05/22/21 17:21 DC 05/21/21 08:25 Non-Formulary Medication ([propranolol ER] ) 120 mg DAILY PO 05/21/21 09:00 UNV Doxycycline Hyclate (Vibra-Tab) 100 mg BID PO 05/20/21 21:00 05/29/21 09:01 05/28/21 20:25 Propranolol HCl (Inderal La) 120 mg DAILY PO 05/21/21 09:00 05/28/21 08:35 Lactobacillus Rhamnosus (Culturelle) 1 cap BID PO 05/21/21 09:00 05/28/21 20:25 Ziprasidone (Geodon) 20 mg BID PO 05/21/21 21:00 05/24/21 16:35 DC 05/24/21 08:52 Vitamin D (Vitamin D3) 50,000 unit WEEKLY PO 05/28/21 09:00 05/28/21 09:20 Cyanocobalamin (Vitamin B-12) 1,000 mcg Q4WK IM 05/22/21 09:00 05/22/21 11:01 Ziprasidone (Geodon) 20 mg DAILY PO 05/25/21 09:00 05/26/21 17:51 DC 05/26/21 08:48 Ziprasidone (Geodon) 40 mg 1700 PO 05/24/21 17:00 05/26/21 17:51 DC 05/26/21 17:34 Mirtazapine (Remeron) 7.5 mg QHS PO 05/25/21 21:00 05/28/21 20:25 Ziprasidone (Geodon) 40 mg 0900,1700 PO 05/27/21 09:00 05/28/21 10:53 DC 05/28/21 08:35 Trazodone HCl (Desyrel) 100 mg QHS PO 05/27/21 22:15 05/28/21 20:25 Trazodone HCl (Desyrel) 100 mg PRN QHS PRN PO Insomnia 05/27/21 22:15 Ziprasidone (Geodon) 40 mg 0900 PO 05/29/21 09:00 Ziprasidone (Geodon) 60 mg 1700 PO 05/28/21 17:00 05/28/21 17:33 Iohexol (Omnipaque 350 Mg/ml) 100 ml 1X ONCE IV 05/28/21 12:45 05/28/21 12:46 DC Current Medications Medications (Trade) Dose Ordered Sig/Ashley Route PRN Reason Start Time Stop Time Status Last Admin Dose Admin Vitamin D (Vitamin D3) 50,000 unit WEEKLY PO 05/28/21 09:00 05/28/21 09:20 Ziprasidone (Geodon) 60 mg 1700 PO 05/28/21 17:00 05/28/21 17:33 I have reviewed the current psychotropics carefully including drug interactions. Risk benefit ratio favors no change other than as noted in my dictated progress note. Diagnosis: Problems: (1) Anxiety disorder, unspecified (2) Major depressive disorder with psychotic features (3) Bipolar disorder, current episode mixed, severe, with psychotic features (4) Psychotic disorder (5) Parkinson's disease MYNOR FABIAN MD May 29, 2021 08:45
--- NOTE | 2021-05-29 09:12 | PDOC ---
Exam Note: Bran Note: This note is a late entry for 05/28/2021 covers elements not covered in my initial note. Subjective: The patient was seen individually in the morning of 05/28/2021 for a treatment team meeting with Charlette Hill, Jaleesa Treviño (social welfare research worker), Shana, activity therapy and Angelia NAVARRO, discussed and reviewed the chart. The patient slept 7-1/2 hours previous night. The patients daughter Awilda attended the treatment team meeting. We had a lengthy discussion about her history, onset of hallucinations following the of her father in 2007 with no prior history. According to the daughter the patient was most recently on Saphris and seemed to be responding somewhat to it. Nevertheless she had to be hospitalized due to her ongoing psychosis and suicidal ideation. We will check with her CT head if being done. If not we will do one. I had been called by the nursing staff around 10.30 p.m. last night as during nursing assessment she had voiced active suicidal ideation to smother herself. She was placed on one-one-on status. EKG QTc is 449 milliseconds. Review of Systems: Positive for parkinsonian tremors. No CV, , pulmonary, eye, ENT system symptoms on review. Mental Status Exam: The patient is alert, oriented and cooperative. She was playing card game with other patients in the dayroom. She stated she is still having auditory hallucinations but feels she has control and she will not act out on these. Speech is coherent. Abstraction fair. Computation impaired. Language function intact. Attention span short. Mood and affect somewhat withdrawn. No active suicidal ideation. Laboratory Data: Reviewed. Impression: Major depressive disorder with psychotic features. Bipolar disorder, mixed with psychotic features. Anxiety disorder unspecified. Parkinsons disease. Psychotic disorder unspecified. Plan: Continue current psychotropics. Increase Geodon from 40 mg b.i.d. to 40 mg a.m. and 60 mg h.s. Maintain Lamotrigine, Sinemet, Remeron, trazodone and Primidone at current dosage. Assessment: Vital Signs/I&O: Vital Signs Date Time Temp Pulse Resp B/P (MAP) Pulse Ox O2 Delivery O2 Flow Rate FiO2 05/29/21 06:46 98.0 69 16 87/55 (66) 99 Room Air I & O 7/05/28/21 05/29/21 15:00 23:00 07:00 Intake Total 600 ml 680 ml Balance 600 ml 680 ml Current Medications: Meds: Current Medications Medications (Trade) Dose Ordered Sig/Ashley Route PRN Reason Start Time Stop Time Status Last Admin Dose Admin Acetaminophen (Tylenol) 650 mg PRN Q6HRS PRN PO MILD PAIN / TEMP > 100.3'F 05/19/21 19:45 Multi-Ingredient Ointment (Analgesic [place]) 1 rayo PRN QID PRN TP MUSCLE PAIN 05/19/21 19:45 Al Hydroxide/Mg Hydroxide (Mylanta Plus Xs) 15 ml PRN AFTMEALHC PRN PO DYSPEPSIA 05/19/21 19:45 Magnesium Hydroxide (Milk Of Magnesia) 2,400 mg PRN QHS PRN PO CONSTIPATION 05/19/21 19:45 05/19/21 23:53 Carbidopa/Levodopa (Sinemet 25/100) 0.5 tab TID PO 05/20/21 21:00 05/29/21 08:43 Lamotrigine (LaMICtal) 100 mg BID PO 05/20/21 21:00 05/29/21 08:43 Primidone (Mysoline) 100 mg QHS PO 05/20/21 21:00 05/28/21 20:25 Non-Formulary Medication (Asenapine Maleate (Saphris)) 10 mg BID SL 05/20/21 21:00 05/25/21 12:51 DC 05/23/21 08:51 Non-Formulary Medication (Lumateperone Tosylate (Caplyta)) 42 mg DAILY PO 05/21/21 09:00 05/25/21 12:51 DC Lurasidone HCl (Latuda) 20 mg DAILYWBKFT PO 05/21/21 08:00 05/22/21 17:21 DC 05/21/21 08:25 Non-Formulary Medication ([propranolol ER] ) 120 mg DAILY PO 05/21/21 09:00 UNV Doxycycline Hyclate (Vibra-Tab) 100 mg BID PO 05/20/21 21:00 05/29/21 09:01 DC 05/29/21 08:43 Propranolol HCl (Inderal La) 120 mg DAILY PO 05/21/21 09:00 05/28/21 08:35 Lactobacillus Rhamnosus (Culturelle) 1 cap BID PO 05/21/21 09:00 05/29/21 08:43 Ziprasidone (Geodon) 20 mg BID PO 05/21/21 21:00 05/24/21 16:35 DC 05/24/21 08:52 Vitamin D (Vitamin D3) 50,000 unit WEEKLY PO 05/28/21 09:00 05/28/21 09:20 Cyanocobalamin (Vitamin B-12) 1,000 mcg Q4WK IM 05/22/21 09:00 05/22/21 11:01 Ziprasidone (Geodon) 20 mg DAILY PO 05/25/21 09:00 05/26/21 17:51 DC 05/26/21 08:48 Ziprasidone (Geodon) 40 mg 1700 PO 05/24/21 17:00 05/26/21 17:51 DC 05/26/21 17:34 Mirtazapine (Remeron) 7.5 mg QHS PO 05/25/21 21:00 05/28/21 20:25 Ziprasidone (Geodon) 40 mg 0900,1700 PO 05/27/21 09:00 05/28/21 10:53 DC 05/28/21 08:35 Trazodone HCl (Desyrel) 100 mg QHS PO 05/27/21 22:15 05/28/21 20:25 Trazodone HCl (Desyrel) 100 mg PRN QHS PRN PO Insomnia 05/27/21 22:15 Ziprasidone (Geodon) 40 mg 0900 PO 05/29/21 09:00 05/29/21 08:43 Ziprasidone (Geodon) 60 mg 1700 PO 05/28/21 17:00 05/28/21 17:33 Iohexol (Omnipaque 350 Mg/ml) 100 ml 1X ONCE IV 05/28/21 12:45 05/28/21 12:46 DC Current Medications Medications (Trade) Dose Ordered Sig/Ashley Route PRN Reason Start Time Stop Time Status Last Admin Dose Admin Ziprasidone (Geodon) 40 mg 0900 PO 05/29/21 09:00 05/29/21 08:43 Ziprasidone (Geodon) 60 mg 1700 PO 05/28/21 17:00 05/28/21 17:33 I have reviewed the current psychotropics carefully including drug interactions. Risk benefit ratio favors no change other than as noted in my dictated progress note. Diagnosis: Problems: (1) Anxiety disorder, unspecified (2) Major depressive disorder with psychotic features (3) Bipolar disorder, current episode mixed, severe, with psychotic features (4) Psychotic disorder (5) Parkinson's disease MYNOR FABIAN MD May 29, 2021 09:12
[2021-05-29 16:04] VITALS: BP 97/63
[2021-05-29] MEDS: ZIPRASIDONE 60 MG CAPSULE. PO SCH (17:26)
[2021-05-29] MEDS: traZODone 100 MG TABLET. PO SCH (20:38)
[2021-05-29] MEDS: PRIMIDONE 50 MG TABLET PO SCH (20:38)
[2021-05-29] MEDS: MIRTAZAPINE 7.5 MG TABLET. PO SCH (20:39)
--- NOTE | 2021-05-29 22:08 | PDOC ---
Exam Note: Bran Note: Please also refer to the separate dictated note~for this date of service dictated separately.~Patient seen individually. Discussed the patient with Nursing staff reviewed the chart.~Reviewed interim history and current functioning. Reviewed vital signs,~Labs/ Radiology~and current medications noted below. Continue current treatment with the changes noted in the dictated addendum note Assessment: Vital Signs/I&O: Vital Signs Date Time Temp Pulse Resp B/P (MAP) Pulse Ox O2 Delivery O2 Flow Rate FiO2 05/29/21 16:04 97.6 73 18 97/63 (74) 97 Room Air I & O 05/28/21 05/28/21 05/29/21 15:00 23:00 07:00 Intake Total 600 ml 680 ml Balance 600 ml 680 ml Current Medications: Meds: Current Medications Medications (Trade) Dose Ordered Sig/Ashley Route PRN Reason Start Time Stop Time Status Last Admin Dose Admin Acetaminophen (Tylenol) 650 mg PRN Q6HRS PRN PO MILD PAIN / TEMP > 100.3'F 05/19/21 19:45 Multi-Ingredient Ointment (Analgesic [place]) 1 rayo PRN QID PRN TP MUSCLE PAIN 05/19/21 19:45 Al Hydroxide/Mg Hydroxide (Mylanta Plus Xs) 15 ml PRN AFTMEALHC PRN PO DYSPEPSIA 05/19/21 19:45 Magnesium Hydroxide (Milk Of Magnesia) 2,400 mg PRN QHS PRN PO CONSTIPATION 05/19/21 19:45 05/19/21 23:53 Carbidopa/Levodopa (Sinemet 25/100) 0.5 tab TID PO 05/20/21 21:00 05/29/21 20:39 Lamotrigine (LaMICtal) 100 mg BID PO 05/20/21 21:00 05/29/21 20:39 Primidone (Mysoline) 100 mg QHS PO 05/20/21 21:00 05/29/21 20:38 Non-Formulary Medication (Asenapine Maleate (Saphris)) 10 mg BID SL 05/20/21 21:00 05/25/21 12:51 DC 05/23/21 08:51 Non-Formulary Medication (Lumateperone Tosylate (Caplyta)) 42 mg DAILY PO 05/21/21 09:00 05/25/21 12:51 DC Lurasidone HCl (Latuda) 20 mg DAILYWBKFT PO 05/21/21 08:00 05/22/21 17:21 DC 05/21/21 08:25 Non-Formulary Medication ([propranolol ER] ) 120 mg DAILY PO 05/21/21 09:00 UNV Doxycycline Hyclate (Vibra-Tab) 100 mg BID PO 05/20/21 21:00 05/29/21 09:01 DC 05/29/21 08:43 Propranolol HCl (Inderal La) 120 mg DAILY PO 05/21/21 09:00 05/28/21 08:35 Lactobacillus Rhamnosus (Culturelle) 1 cap BID PO 05/21/21 09:00 05/29/21 20:38 Ziprasidone (Geodon) 20 mg BID PO 05/21/21 21:00 05/24/21 16:35 DC 05/24/21 08:52 Vitamin D (Vitamin D3) 50,000 unit WEEKLY PO 05/28/21 09:00 05/28/21 09:20 Cyanocobalamin (Vitamin B-12) 1,000 mcg Q4WK IM 05/22/21 09:00 05/22/21 11:01 Ziprasidone (Geodon) 20 mg DAILY PO 05/25/21 09:00 05/26/21 17:51 DC 05/26/21 08:48 Ziprasidone (Geodon) 40 mg 1700 PO 05/24/21 17:00 05/26/21 17:51 DC 05/26/21 17:34 Mirtazapine (Remeron) 7.5 mg QHS PO 05/25/21 21:00 05/29/21 20:39 Ziprasidone (Geodon) 40 mg 0900,1700 PO 05/27/21 09:00 05/28/21 10:53 DC 05/28/21 08:35 Trazodone HCl (Desyrel) 100 mg QHS PO 05/27/21 22:15 05/29/21 20:38 Trazodone HCl (Desyrel) 100 mg PRN QHS PRN PO Insomnia 05/27/21 22:15 Ziprasidone (Geodon) 40 mg 0900 PO 05/29/21 09:00 05/29/21 08:43 Ziprasidone (Geodon) 60 mg 1700 PO 05/28/21 17:00 05/29/21 17:26 Iohexol (Omnipaque 350 Mg/ml) 100 ml 1X ONCE IV 05/28/21 12:45 05/28/21 12:46 DC Current Medications Medications (Trade) Dose Ordered Sig/Ashley Route PRN Reason Start Time Stop Time Status Last Admin Dose Admin Ziprasidone (Geodon) 40 mg 0900 PO 05/29/21 09:00 05/29/21 08:43 I have reviewed the current psychotropics carefully including drug interactions. Risk benefit ratio favors no change other than as noted in my dictated progress note. Diagnosis: Problems: (1) Anxiety disorder, unspecified (2) Major depressive disorder with psychotic features (3) Bipolar disorder, current episode mixed, severe, with psychotic features (4) Psychotic disorder (5) Parkinson's disease MYNOR FABIAN MD May 29, 2021 22:08
--- NOTE | 2021-05-30 00:34 | NUR ---
Nursing Note Pt pleasant and cooperative, states she has voices in her head telling her to smother herself and that the voices are Myrna and Jose Martin. She added "So they say, they are Myrna and Jose Martin..." as in disbelief. Pt states she has no intention of harming herself and contracted for safety with me for this admission. Pt states that she is feeling better but the voices are still there and not improved, although she is not going to act on them.
[2021-05-30 05:13] VITALS: BP 105/70
[2021-05-30] MEDS: LACTOBACILLUS RHAMNOSUS GG 1 CAPSULE. PO SCH ×2 (08:16→20:20)
[2021-05-30] MEDS: lamoTRIgine 100 MG TABLET. PO SCH ×2 (08:17→20:20)
[2021-05-30] MEDS: ZIPRASIDONE 40 MG CAPSULE. PO SCH (08:17)
[2021-05-30] MEDS: CARBIDOPA/LEVODOPA 25/100MG TABLET PO SCH ×3 (08:17→20:21)
[2021-05-30] MEDS: PROPRANOLOL ER 60 MG CAP.SA.24H. PO SCH (08:17)
--- NOTE | 2021-05-30 11:03 | NUR ---
Pt A&Ox4, appropriate with her interactions with others. Denies SI/HI/VH at this time. She reports experiencing CAH in the form of voices encouraging her to smother herself with a pillow. Pt states she is able to not follow the instructions of the voices and states she feels like she can seek staff assistance should she feel unable to ignore the voices. She has no complaints or concerns at this time. Compliant with whole medications. She appears social and interactive with others. Plan of care continues, will pass to next shift.
[2021-05-30 15:52] VITALS: BP 99/61
[2021-05-30] MEDS: ZIPRASIDONE 60 MG CAPSULE. PO SCH (15:56)
[2021-05-30] MEDS: MIRTAZAPINE 7.5 MG TABLET. PO SCH (20:20)
[2021-05-30] MEDS: traZODone 100 MG TABLET. PO SCH (20:20)
[2021-05-30] MEDS: PRIMIDONE 50 MG TABLET PO SCH (20:21)
--- NOTE | 2021-05-30 22:02 | NUR ---
Nursing Note Pt up in dayroom, said that the voices are telling her to starve herself. She states that she isn't listening and that she won't hurt or starve herself. The voices say they are Myrna and Zeeshan matthews. Sits in day room, social with peers.
--- NOTE | 2021-05-30 22:02 | PDOC ---
Exam Note: Bran Note: Please also refer to the separate dictated note~for this date of service dictated separately.~Patient seen individually. Discussed the patient with Nursing staff reviewed the chart.~Reviewed interim history and current functioning. Reviewed vital signs,~Labs/ Radiology~and current medications noted below. Continue current treatment with the changes noted in the dictated addendum note Assessment: Vital Signs/I&O: Vital Signs Date Time Temp Pulse Resp B/P (MAP) Pulse Ox O2 Delivery O2 Flow Rate FiO2 05/30/21 15:52 98.0 69 18 99/61 (74) 97 05/29/21 16:04 Room Air I & O 05/29/21 05/29/21 05/30/21 15:00 23:00 07:00 Intake Total 840 ml 960 ml Balance 840 ml 960 ml Current Medications: Meds: Current Medications Medications (Trade) Dose Ordered Sig/Ashley Route PRN Reason Start Time Stop Time Status Last Admin Dose Admin Acetaminophen (Tylenol) 650 mg PRN Q6HRS PRN PO MILD PAIN / TEMP > 100.3'F 05/19/21 19:45 Multi-Ingredient Ointment (Analgesic [place]) 1 rayo PRN QID PRN TP MUSCLE PAIN 05/19/21 19:45 Al Hydroxide/Mg Hydroxide (Mylanta Plus Xs) 15 ml PRN AFTMEALHC PRN PO DYSPEPSIA 05/19/21 19:45 Magnesium Hydroxide (Milk Of Magnesia) 2,400 mg PRN QHS PRN PO CONSTIPATION 05/19/21 19:45 05/19/21 23:53 Carbidopa/Levodopa (Sinemet 25/100) 0.5 tab TID PO 05/20/21 21:00 05/30/21 20:21 Lamotrigine (LaMICtal) 100 mg BID PO 05/20/21 21:00 05/30/21 20:20 Primidone (Mysoline) 100 mg QHS PO 05/20/21 21:00 05/30/21 20:21 Non-Formulary Medication (Asenapine Maleate (Saphris)) 10 mg BID SL 05/20/21 21:00 05/25/21 12:51 DC 05/23/21 08:51 Non-Formulary Medication (Lumateperone Tosylate (Caplyta)) 42 mg DAILY PO 05/21/21 09:00 05/25/21 12:51 DC Lurasidone HCl (Latuda) 20 mg DAILYWBKFT PO 05/21/21 08:00 05/22/21 17:21 DC 05/21/21 08:25 Non-Formulary Medication ([propranolol ER] ) 120 mg DAILY PO 05/21/21 09:00 UNV Doxycycline Hyclate (Vibra-Tab) 100 mg BID PO 05/20/21 21:00 05/29/21 09:01 DC 05/29/21 08:43 Propranolol HCl (Inderal La) 120 mg DAILY PO 05/21/21 09:00 05/30/21 08:17 Lactobacillus Rhamnosus (Culturelle) 1 cap BID PO 05/21/21 09:00 05/30/21 20:20 Ziprasidone (Geodon) 20 mg BID PO 05/21/21 21:00 05/24/21 16:35 DC 05/24/21 08:52 Vitamin D (Vitamin D3) 50,000 unit WEEKLY PO 05/28/21 09:00 05/28/21 09:20 Cyanocobalamin (Vitamin B-12) 1,000 mcg Q4WK IM 05/22/21 09:00 05/22/21 11:01 Ziprasidone (Geodon) 20 mg DAILY PO 05/25/21 09:00 05/26/21 17:51 DC 05/26/21 08:48 Ziprasidone (Geodon) 40 mg 1700 PO 05/24/21 17:00 05/26/21 17:51 DC 05/26/21 17:34 Mirtazapine (Remeron) 7.5 mg QHS PO 05/25/21 21:00 05/30/21 20:20 Ziprasidone (Geodon) 40 mg 0900,1700 PO 05/27/21 09:00 05/28/21 10:53 DC 05/28/21 08:35 Trazodone HCl (Desyrel) 100 mg QHS PO 05/27/21 22:15 05/30/21 20:20 Trazodone HCl (Desyrel) 100 mg PRN QHS PRN PO Insomnia 05/27/21 22:15 Ziprasidone (Geodon) 40 mg 0900 PO 05/29/21 09:00 05/30/21 08:17 Ziprasidone (Geodon) 60 mg 1700 PO 05/28/21 17:00 05/30/21 15:56 Iohexol (Omnipaque 350 Mg/ml) 100 ml 1X ONCE IV 05/28/21 12:45 05/28/21 12:46 DC I have reviewed the current psychotropics carefully including drug interactions. Risk benefit ratio favors no change other than as noted in my dictated progress note. Diagnosis: Problems: (1) Anxiety disorder, unspecified (2) Major depressive disorder with psychotic features (3) Bipolar disorder, current episode mixed, severe, with psychotic features (4) Psychotic disorder (5) Parkinson's disease MYNOR FABIAN MD May 30, 2021 22:02
[2021-05-31] MEDS: LACTOBACILLUS RHAMNOSUS GG 1 CAPSULE. PO SCH ×2 (05:39→20:13)
[2021-05-31] MEDS: ZIPRASIDONE 40 MG CAPSULE. PO SCH (05:39)
[2021-05-31] MEDS: CARBIDOPA/LEVODOPA 25/100MG TABLET PO SCH ×3 (05:40→20:14)
[2021-05-31] MEDS: lamoTRIgine 100 MG TABLET. PO SCH ×2 (05:40→20:13)
[2021-05-31] MEDS: PROPRANOLOL ER 60 MG CAP.SA.24H. PO SCH (05:40)
[2021-05-31 06:22] VITALS: BP 106/67
--- NOTE | 2021-05-31 07:43 | PDOC ---
Exam Note: Bran Note: This note is a late entry for 05/29/2021 covers elements not covered in my initial note. Subjective: The patient was reviewed on telehealth rounds on 05/29/2021 due to the COVID-19 pandemic. There have been 3 patients on the unit that have turned up positive today, 05/29 and they are being transitioned to the [facility] floor per Dr. Bajwa. There have also been 2 staff members that have turned up positive for COVID-19 and all the patients are going to be tested weekly for the COVID-19 along with every staff member going forward. I had not had the opportunity to be tested myself and will await completing this before considering [id number] rounds on the unit. Discussed with Ryan NAVARRO and reviewed the chart. The patient slept 6-1/2 hours previous night. Initially she told the nursing staff she was not hearing any voices but later admitted to auditory hallucinations telling her to suffocate herself. She stated she was quite clear that she would not act out on these. One-on-one status has been discontinued. Review of Systems: Positive for parkinsonian tremors. No CV, , pulmonary, eye, ENT system symptoms on review. Mental Status Exam: The patient is alert, oriented and cooperative. She was verbal, interactive, somewhat labile in her mood, questioning me about the etiology of her psychosis and we discussed this. Speech is coherent. Abstraction fair. Computation impaired. Language function intact. Attention span short. Mood and affect somewhat withdrawn. No active suicidal ideation. Laboratory Data: Reviewed. Impression: Major depressive disorder with psychotic features. Bipolar disorder, mixed with psychotic features. Anxiety disorder unspecified. [place] sons disease. Psychotic disorder unspecified. Plan: Continue current psychotropics. Assessment: Vital Signs/I&O: Vital Signs Date Time Temp Pulse Resp B/P (MAP) Pulse Ox O2 Delivery O2 Flow Rate FiO2 05/31/21 06:22 98.6 63 16 106/67 (80) 96 05/29/21 16:04 Room Air I & O 05/30/21 05/30/21 05/31/21 15:00 23:00 07:00 Intake Total 720 ml 720 ml Balance 720 ml 720 ml Current Medications: Meds: Current Medications Medications (Trade) Dose Ordered Sig/Ashley Route PRN Reason Start Time Stop Time Status Last Admin Dose Admin Acetaminophen (Tylenol) 650 mg PRN Q6HRS PRN PO MILD PAIN / TEMP > 100.3'F 05/19/21 19:45 Multi-Ingredient Ointment (Analgesic [place]) 1 rayo PRN QID PRN TP MUSCLE PAIN 05/19/21 19:45 Al Hydroxide/Mg Hydroxide (Mylanta Plus Xs) 15 ml PRN AFTMEALHC PRN PO DYSPEPSIA 05/19/21 19:45 Magnesium Hydroxide (Milk Of Magnesia) 2,400 mg PRN QHS PRN PO CONSTIPATION 05/19/21 19:45 05/19/21 23:53 Carbidopa/Levodopa (Sinemet 25/100) 0.5 tab TID PO 05/20/21 21:00 05/31/21 05:40 Lamotrigine (LaMICtal) 100 mg BID PO 05/20/21 21:00 05/31/21 05:40 Primidone (Mysoline) 100 mg QHS PO 05/20/21 21:00 05/30/21 20:21 Non-Formulary Medication (Asenapine Maleate (Saphris)) 10 mg BID SL 05/20/21 21:00 05/25/21 12:51 DC 05/23/21 08:51 Non-Formulary Medication (Lumateperone Tosylate (Caplyta)) 42 mg DAILY PO 05/21/21 09:00 05/25/21 12:51 DC Lurasidone HCl (Latuda) 20 mg DAILYWBKFT PO 05/21/21 08:00 05/22/21 17:21 DC 05/21/21 08:25 Non-Formulary Medication ([propranolol ER] ) 120 mg DAILY PO 05/21/21 09:00 UNV Doxycycline Hyclate (Vibra-Tab) 100 mg BID PO 05/20/21 21:00 05/29/21 09:01 DC 05/29/21 08:43 Propranolol HCl (Inderal La) 120 mg DAILY PO 05/21/21 09:00 05/31/21 05:40 Lactobacillus Rhamnosus (Culturelle) 1 cap BID PO 05/21/21 09:00 05/31/21 05:39 Ziprasidone (Geodon) 20 mg BID PO 05/21/21 21:00 05/24/21 16:35 DC 05/24/21 08:52 Vitamin D (Vitamin D3) 50,000 unit WEEKLY PO 05/28/21 09:00 05/28/21 09:20 Cyanocobalamin (Vitamin B-12) 1,000 mcg Q4WK IM 05/22/21 09:00 05/22/21 11:01 Ziprasidone (Geodon) 20 mg DAILY PO 05/25/21 09:00 05/26/21 17:51 DC 05/26/21 08:48 Ziprasidone (Geodon) 40 mg 1700 PO 05/24/21 17:00 05/26/21 17:51 DC 05/26/21 17:34 Mirtazapine (Remeron) 7.5 mg QHS PO 05/25/21 21:00 05/30/21 20:20 Ziprasidone (Geodon) 40 mg 0900,1700 PO 05/27/21 09:00 05/28/21 10:53 DC 05/28/21 08:35 Trazodone HCl (Desyrel) 100 mg QHS PO 05/27/21 22:15 05/30/21 20:20 Trazodone HCl (Desyrel) 100 mg PRN QHS PRN PO Insomnia 05/27/21 22:15 Ziprasidone (Geodon) 40 mg 0900 PO 05/29/21 09:00 05/31/21 05:39 Ziprasidone (Geodon) 60 mg 1700 PO 05/28/21 17:00 05/30/21 15:56 Iohexol (Omnipaque 350 Mg/ml) 100 ml 1X ONCE IV 05/28/21 12:45 05/28/21 12:46 DC I have reviewed the current psychotropics carefully including drug interactions. Risk benefit ratio favors no change other than as noted in my dictated progress note. Diagnosis: Problems: (1) Anxiety disorder, unspecified (2) Major depressive disorder with psychotic features (3) Bipolar disorder, current episode mixed, severe, with psychotic features (4) Psychotic disorder (5) Parkinson's disease MYNOR FABIAN MD May 31, 2021 07:43
--- NOTE | 2021-05-31 08:47 | PDOC ---
Exam Note: Bran Note: This note is a late entry for 05/30/2021 covers elements not covered in my initial note. Subjective: The patient was reviewed on telehealth rounds on 05/30/2021 due to the COVID-19 pandemic. Discussed with Hina NAVARRO and reviewed the chart. The patient slept 6-1/2 hours previous night. She was somewhat calm. She still hears voices telling her to smother herself but as I questioned her individually she had thoroughly denied any intention to do this. Review of Systems: Positive for parkinsonian tremors. No CV, , pulmonary, eye, ENT system symptoms on review. Mental Status Exam: The patient is alert and oriented to herself. Speech is coherent. Abstraction fair. Computation impaired. Language function intact. Attention span short. Mood and affect somewhat withdrawn. No active suicidal ideation. Laboratory Data: Reviewed. Impression: Major depressive disorder with psychotic features. Bipolar disorder, mixed with psychotic features. Anxiety disorder unspecified. Parkinsons disease. Psychotic disorder unspecified. Plan: Continue current psychotropics. Geodon is currently 40 mg a.m. and 60 mg h.s. We will increase to 60 mg twice a day in a couple of days if EKG is unr emarkable. Assessment: Vital Signs/I&O: Vital Signs Date Time Temp Pulse Resp B/P (MAP) Pulse Ox O2 Delivery O2 Flow Rate FiO2 05/31/21 06:22 98.6 63 16 106/67 (80) 96 05/29/21 16:04 Room Air I & O 05/30/21 05/30/21 05/31/21 15:00 23:00 07:00 Intake Total 720 ml 720 ml Balance 720 ml 720 ml Current Medications: Meds: Current Medications Medications (Trade) Dose Ordered Sig/Ashley Route PRN Reason Start Time Stop Time Status Last Admin Dose Admin Acetaminophen (Tylenol) 650 mg PRN Q6HRS PRN PO MILD PAIN / TEMP > 100.3'F 05/19/21 19:45 Multi-Ingredient Ointment (Analgesic [place]) 1 rayo PRN QID PRN TP MUSCLE PAIN 05/19/21 19:45 Al Hydroxide/Mg Hydroxide (Mylanta Plus Xs) 15 ml PRN AFTMEALHC PRN PO DYSPEPSIA 05/19/21 19:45 Magnesium Hydroxide (Milk Of Magnesia) 2,400 mg PRN QHS PRN PO CONSTIPATION 05/19/21 19:45 05/19/21 23:53 Carbidopa/Levodopa (Sinemet 25/100) 0.5 tab TID PO 05/20/21 21:00 05/31/21 05:40 Lamotrigine (LaMICtal) 100 mg BID PO 05/20/21 21:00 05/31/21 05:40 Primidone (Mysoline) 100 mg QHS PO 05/20/21 21:00 05/30/21 20:21 Non-Formulary Medication (Asenapine Maleate (Saphris)) 10 mg BID SL 05/20/21 21:00 05/25/21 12:51 DC 05/23/21 08:51 Non-Formulary Medication (Lumateperone Tosylate (Caplyta)) 42 mg DAILY PO 05/21/21 09:00 05/25/21 12:51 DC Lurasidone HCl (Latuda) 20 mg DAILYWBKFT PO 05/21/21 08:00 05/22/21 17:21 DC 05/21/21 08:25 Non-Formulary Medication ([propranolol ER] ) 120 mg DAILY PO 05/21/21 09:00 UNV Doxycycline Hyclate (Vibra-Tab) 100 mg BID PO 05/20/21 21:00 05/29/21 09:01 DC 05/29/21 08:43 Propranolol HCl (Inderal La) 120 mg DAILY PO 05/21/21 09:00 05/31/21 05:40 Lactobacillus Rhamnosus (Culturelle) 1 cap BID PO 05/21/21 09:00 05/31/21 05:39 Ziprasidone (Geodon) 20 mg BID PO 05/21/21 21:00 05/24/21 16:35 DC 05/24/21 08:52 Vitamin D (Vitamin D3) 50,000 unit WEEKLY PO 05/28/21 09:00 05/28/21 09:20 Cyanocobalamin (Vitamin B-12) 1,000 mcg Q4WK IM 05/22/21 09:00 05/22/21 11:01 Ziprasidone (Geodon) 20 mg DAILY PO 05/25/21 09:00 05/26/21 17:51 DC 05/26/21 08:48 Ziprasidone (Geodon) 40 mg 1700 PO 05/24/21 17:00 05/26/21 17:51 DC 05/26/21 17:34 Mirtazapine (Remeron) 7.5 mg QHS PO 05/25/21 21:00 05/30/21 20:20 Ziprasidone (Geodon) 40 mg 0900,1700 PO 05/27/21 09:00 05/28/21 10:53 DC 05/28/21 08:35 Trazodone HCl (Desyrel) 100 mg QHS PO 05/27/21 22:15 05/30/21 20:20 Trazodone HCl (Desyrel) 100 mg PRN QHS PRN PO Insomnia 05/27/21 22:15 Ziprasidone (Geodon) 40 mg 0900 PO 05/29/21 09:00 05/31/21 05:39 Ziprasidone (Geodon) 60 mg 1700 PO 05/28/21 17:00 05/30/21 15:56 Iohexol (Omnipaque 350 Mg/ml) 100 ml 1X ONCE IV 05/28/21 12:45 05/28/21 12:46 DC I have reviewed the current psychotropics carefully including drug interactions. Risk benefit ratio favors no change other than as noted in my dictated progress note. Diagnosis: Problems: (1) Anxiety disorder, unspecified (2) Major depressive disorder with psychotic features (3) Bipolar disorder, current episode mixed, severe, with psychotic features (4) Psychotic disorder (5) Parkinson's disease MYNOR FABIAN MD May 31, 2021 08:47
--- NOTE | 2021-05-31 15:36 | NUR ---
Patient alert oriented x4 , Patient pleasant with her peers. Medication compliant take all medication whole.PAtyient Addendum: 05/31/21 at 1546 by GIOVANNY VASQUEZ LPN LPN Patient alert oriented x4 , Patient pleasant with her peers. Medication compliant take all medication whole.Patient in day room socializing with patients.She says the voices are telling her to hurt herself and her roommate but patient is saying I am not going to let them win. I like my roommate. I am not going to harm myself. [facility]
[2021-05-31 16:19] VITALS: BP 123/47
[2021-05-31] MEDS: ZIPRASIDONE 60 MG CAPSULE. PO SCH (17:16)
[2021-05-31] MEDS: traZODone 100 MG TABLET. PO SCH (20:13)
[2021-05-31] MEDS: MIRTAZAPINE 7.5 MG TABLET. PO SCH (20:13)
[2021-05-31] MEDS: PRIMIDONE 50 MG TABLET PO SCH (20:14)
--- NOTE | 2021-05-31 21:58 | PDOC ---
Exam Note: Bran Note: Please also refer to the separate dictated note~for this date of service dictated separately.~Patient seen individually. Discussed the patient with Nursing staff reviewed the chart.~Reviewed interim history and current functioning. Reviewed vital signs,~Labs/ Radiology~and current medications noted below. Continue current treatment with the changes noted in the dictated addendum note Assessment: Vital Signs/I&O: Vital Signs Date Time Temp Pulse Resp B/P (MAP) Pulse Ox O2 Delivery O2 Flow Rate FiO2 05/31/21 16:19 97.7 104 18 123/47 (72) 94 05/29/21 16:04 Room Air I & O 05/30/21 05/30/21 05/31/21 15:00 23:00 07:00 Intake Total 720 ml 720 ml Balance 720 ml 720 ml Current Medications: Meds: Current Medications Medications (Trade) Dose Ordered Sig/Ashley Route PRN Reason Start Time Stop Time Status Last Admin Dose Admin Acetaminophen (Tylenol) 650 mg PRN Q6HRS PRN PO MILD PAIN / TEMP > 100.3'F 05/19/21 19:45 Multi-Ingredient Ointment (Analgesic [place]) 1 rayo PRN QID PRN TP MUSCLE PAIN 05/19/21 19:45 Al Hydroxide/Mg Hydroxide (Mylanta Plus Xs) 15 ml PRN AFTMEALHC PRN PO DYSPEPSIA 05/19/21 19:45 Magnesium Hydroxide (Milk Of Magnesia) 2,400 mg PRN QHS PRN PO CONSTIPATION 05/19/21 19:45 05/19/21 23:53 Carbidopa/Levodopa (Sinemet 25/100) 0.5 tab TID PO 05/20/21 21:00 05/31/21 20:14 Lamotrigine (LaMICtal) 100 mg BID PO 05/20/21 21:00 05/31/21 20:13 Primidone (Mysoline) 100 mg QHS PO 05/20/21 21:00 05/31/21 17:46 DC 05/30/21 20:21 Non-Formulary Medication (Asenapine Maleate (Saphris)) 10 mg BID SL 05/20/21 21:00 05/25/21 12:51 DC 05/23/21 08:51 Non-Formulary Medication (Lumateperone Tosylate (Caplyta)) 42 mg DAILY PO 05/21/21 09:00 05/25/21 12:51 DC Lurasidone HCl (Latuda) 20 mg DAILYWBKFT PO 05/21/21 08:00 05/22/21 17:21 DC 05/21/21 08:25 Non-Formulary Medication ([propranolol ER] ) 120 mg DAILY PO 05/21/21 09:00 UNV Doxycycline Hyclate (Vibra-Tab) 100 mg BID PO 05/20/21 21:00 05/29/21 09:01 DC 05/29/21 08:43 Propranolol HCl (Inderal La) 120 mg DAILY PO 05/21/21 09:00 05/31/21 05:40 Lactobacillus Rhamnosus (Culturelle) 1 cap BID PO 05/21/21 09:00 05/31/21 20:13 Ziprasidone (Geodon) 20 mg BID PO 05/21/21 21:00 05/24/21 16:35 DC 05/24/21 08:52 Vitamin D (Vitamin D3) 50,000 unit WEEKLY PO 05/28/21 09:00 05/28/21 09:20 Cyanocobalamin (Vitamin B-12) 1,000 mcg Q4WK IM 05/22/21 09:00 05/22/21 11:01 Ziprasidone (Geodon) 20 mg DAILY PO 05/25/21 09:00 05/26/21 17:51 DC 05/26/21 08:48 Ziprasidone (Geodon) 40 mg 1700 PO 05/24/21 17:00 05/26/21 17:51 DC 05/26/21 17:34 Mirtazapine (Remeron) 7.5 mg QHS PO 05/25/21 21:00 05/31/21 20:13 Ziprasidone (Geodon) 40 mg 0900,1700 PO 05/27/21 09:00 05/28/21 10:53 DC 05/28/21 08:35 Trazodone HCl (Desyrel) 100 mg QHS PO 05/27/21 22:15 05/31/21 20:13 Trazodone HCl (Desyrel) 100 mg PRN QHS PRN PO Insomnia 05/27/21 22:15 Ziprasidone (Geodon) 40 mg 0900 PO 05/29/21 09:00 05/31/21 17:51 DC 05/31/21 05:39 Ziprasidone (Geodon) 60 mg 1700 PO 05/28/21 17:00 05/31/21 17:16 Iohexol (Omnipaque 350 Mg/ml) 100 ml 1X ONCE IV 05/28/21 12:45 05/28/21 12:46 DC Primidone (Mysoline) 150 mg TID PO 06/01/21 09:00 05/31/21 19:39 DC Fluvoxamine Maleate (Luvox) 25 mg DAILY PO 06/01/21 09:00 Ziprasidone (Geodon) 60 mg 0900 PO 06/01/21 09:00 Primidone (Mysoline) 150 mg TID PO 06/01/21 21:00 05/31/21 20:01 DC Primidone (Mysoline) 150 mg TID PO 05/31/21 21:00 05/31/21 20:14 Current Medications Medications (Trade) Dose Ordered Sig/Ashlye Route PRN Reason Start Time Stop Time Status Last Admin Dose Admin Primidone (Mysoline) 150 mg TID PO 05/31/21 21:00 05/31/21 20:14 I have reviewed the current psychotropics carefully including drug interactions. Risk benefit ratio favors no change other than as noted in my dictated progress note. Diagnosis: Problems: (1) Anxiety disorder, unspecified (2) Major depressive disorder with psychotic features (3) Bipolar disorder, current episode mixed, severe, with psychotic features (4) Psychotic disorder (5) Parkinson's disease MYNOR FABIAN MD May 31, 2021 21:58
--- NOTE | 2021-05-31 23:32 | NUR ---
Pt walking in hallway when approached. Pt calm, pleasant, interactive, and social. Pt continues to report AH telling her to hurt herself and her roommate, therefore roommate moved to another room. Pt cooperative with assessment and compliant with medications administered whole. Pt denies SI at this time.
--- NOTE | 2021-06-01 05:21 | EKG ---
[address] [address] Test Date: 2021-06-01 Test Time: 05:13:03 Pat Name: MODESTA BLANCO Department: Room: [address] [place] [address] Gender: F [employer]ter: : 1960 Requested By: MYNOR FABIAN Order Number: [id number] Reading MD: Measurements Intervals [place] Rate: 68 P: 90 MN: 150 QRS: 26 QRSD: 88 T: 27 QT: 400 QTc: 430 Interpretive Statements SINUS RHYTHM LOW LIMB LEAD VOLTAGE QRS(T) CONTOUR ABNORMALITY CONSIDER ANTEROSEPTAL MYOCARDIAL DAMAGE POSSIBLY ABNORMAL ECG RI6.01 Compared to ECG 05/28/2021 09:27:31 No significant changes
[2021-06-01 05:53] VITALS: BP 102/69
--- NOTE | 2021-06-01 06:37 | PDOC ---
Exam Note: Bran Note: This note is a late entry for 05/31/2021 covers elements not covered in my initial note. Subjective: The patient was seen individually in the evening of 05/31/2021 with Gianna NAVARRO, discussed and reviewed the chart. The patient slept 5-3/4 hours previous night. She has been social with other patients. She is alert and oriented x4. She still says she has voices in her head talking to her to kill herself and her roommate. She thoroughly denies she would act up on this and feels she has control but I have discussed with Jessie NAVARRO and we will try and find her individual room for her and also increase Geodon to 60 mg twice a day. Review of Systems: Positive for parkinsonian tremors. No CV, , pulmonary, eye, ENT system symptoms on review. Mental Status Exam: The patient is alert and oriented to herself. She is quite verbal, interactive, appropriate. Speech is coherent. Abstraction fair. Computation impaired. Language function intact. Attention span short. Mood and affect somewhat withdrawn. No active suicidal ideation. Laboratory Data: Reviewed. Impression: Major depressive disorder with psychotic features. Bipolar disorder, mixed with psychotic features. Anxiety disorder unspecified. Parkinsons disease. Psychotic disorder unspecified. Plan: Continue current psychotropics. Increase the Geodon. She states the voices are from past trauma and believes she has neuro-chemical imbalance. I discussed with her the treatment and explained her at length, she is understanding. Assessment: Vital Signs/I&O: Vital Signs Date Time Temp Pulse Resp B/P (MAP) Pulse Ox O2 Delivery O2 Flow Rate FiO2 06/01/21 05:53 96.6 64 16 102/69 (80) 93 05/29/21 16:04 Room Air I & O 05/31/21 05/31/21 06/01/21 14:59 22:59 06:59 Intake Total 720 ml 480 ml Balance 720 ml 480 ml Current Medications: Meds: Current Medications Medications (Trade) Dose Ordered Sig/Ashley Route PRN Reason Start Time Stop Time Status Last Admin Dose Admin Acetaminophen (Tylenol) 650 mg PRN Q6HRS PRN PO MILD PAIN / TEMP > 100.3'F 05/19/21 19:45 Multi-Ingredient Ointment (Analgesic [place]) 1 rayo PRN QID PRN TP MUSCLE PAIN 05/19/21 19:45 Al Hydroxide/Mg Hydroxide (Mylanta Plus Xs) 15 ml PRN AFTMEALHC PRN PO DYSPEPSIA 05/19/21 19:45 Magnesium Hydroxide (Milk Of Magnesia) 2,400 mg PRN QHS PRN PO CONSTIPATION 05/19/21 19:45 05/19/21 23:53 Carbidopa/Levodopa (Sinemet 25/100) 0.5 tab TID PO 05/20/21 21:00 05/31/21 20:14 Lamotrigine (LaMICtal) 100 mg BID PO 05/20/21 21:00 05/31/21 20:13 Primidone (Mysoline) 100 mg QHS PO 05/20/21 21:00 05/31/21 17:46 DC 05/30/21 20:21 Non-Formulary Medication (Asenapine Maleate (Saphris)) 10 mg BID SL 05/20/21 21:00 05/25/21 12:51 DC 05/23/21 08:51 Non-Formulary Medication (Lumateperone Tosylate (Caplyta)) 42 mg DAILY PO 05/21/21 09:00 05/25/21 12:51 DC Lurasidone HCl (Latuda) 20 mg DAILYWBKFT PO 05/21/21 08:00 05/22/21 17:21 DC 05/21/21 08:25 Non-Formulary Medication ([propranolol ER] ) 120 mg DAILY PO 05/21/21 09:00 UNV Doxycycline Hyclate (Vibra-Tab) 100 mg BID PO 05/20/21 21:00 05/29/21 09:01 DC 05/29/21 08:43 Propranolol HCl (Inderal La) 120 mg DAILY PO 05/21/21 09:00 05/31/21 05:40 Lactobacillus Rhamnosus (Culturelle) 1 cap BID PO 05/21/21 09:00 05/31/21 20:13 Ziprasidone (Geodon) 20 mg BID PO 05/21/21 21:00 05/24/21 16:35 DC 05/24/21 08:52 Vitamin D (Vitamin D3) 50,000 unit WEEKLY PO 05/28/21 09:00 05/28/21 09:20 Cyanocobalamin (Vitamin B-12) 1,000 mcg Q4WK IM 05/22/21 09:00 05/22/21 11:01 Ziprasidone (Geodon) 20 mg DAILY PO 05/25/21 09:00 05/26/21 17:51 DC 05/26/21 08:48 Ziprasidone (Geodon) 40 mg 1700 PO 05/24/21 17:00 05/26/21 17:51 DC 05/26/21 17:34 Mirtazapine (Remeron) 7.5 mg QHS PO 05/25/21 21:00 05/31/21 20:13 Ziprasidone (Geodon) 40 mg 0900,1700 PO 05/27/21 09:00 05/28/21 10:53 DC 05/28/21 08:35 Trazodone HCl (Desyrel) 100 mg QHS PO 05/27/21 22:15 05/31/21 20:13 Trazodone HCl (Desyrel) 100 mg PRN QHS PRN PO Insomnia 05/27/21 22:15 Ziprasidone (Geodon) 40 mg 0900 PO 05/29/21 09:00 05/31/21 17:51 DC 05/31/21 05:39 Ziprasidone (Geodon) 60 mg 1700 PO 05/28/21 17:00 05/31/21 17:16 Iohexol (Omnipaque 350 Mg/ml) 100 ml 1X ONCE IV 05/28/21 12:45 05/28/21 12:46 DC Primidone (Mysoline) 150 mg TID PO 06/01/21 09:00 05/31/21 19:39 DC Fluvoxamine Maleate (Luvox) 25 mg DAILY PO 06/01/21 09:00 Ziprasidone (Geodon) 60 mg 0900 PO 06/01/21 09:00 Primidone (Mysoline) 150 mg TID PO 06/01/21 21:00 05/31/21 20:01 DC Primidone (Mysoline) 150 mg TID PO 05/31/21 21:00 05/31/21 20:14 Current Medications Medications (Trade) Dose Ordered Sig/Ashley Route PRN Reason Start Time Stop Time Status Last Admin Dose Admin Primidone (Mysoline) 150 mg TID PO 05/31/21 21:00 05/31/21 20:14 I have reviewed the current psychotropics carefully including drug interactions. Risk benefit ratio favors no change other than as noted in my dictated progress note. Diagnosis: Problems: (1) Anxiety disorder, unspecified (2) Major depressive disorder with psychotic features (3) Bipolar disorder, current episode mixed, severe, with psychotic features (4) Psychotic disorder (5) Parkinson's disease MYNOR FABIAN MD Jun 01, 2021 06:37
[2021-06-01] MEDS: CARBIDOPA/LEVODOPA 25/100MG TABLET PO SCH ×3 (08:09→20:13)
[2021-06-01] MEDS: lamoTRIgine 100 MG TABLET. PO SCH ×2 (08:11→20:12)
[2021-06-01] MEDS: PROPRANOLOL ER 60 MG CAP.SA.24H. PO SCH (08:11)
[2021-06-01] MEDS: ZIPRASIDONE 20 MG CAPSULE. PO SCH (08:12)
[2021-06-01] MEDS: LACTOBACILLUS RHAMNOSUS GG 1 CAPSULE. PO SCH ×2 (08:12→20:12)
[2021-06-01] MEDS: PRIMIDONE 50 MG TABLET PO SCH ×3 (08:12→20:12)
[2021-06-01] MEDS ORDERED: PRIMIDONE 50 MG TABLET PO SCH ×2 (09:00→21:00)
--- NOTE | 2021-06-01 11:05 | NUR ---
Pt has been calm, cooperative, and pleasant. She was medication compliant and voiced her understanding of all medication changes. Pt denies having any pain. She has been socializing with other patients and walking the unit and napping throughout the day.
[2021-06-01 15:45] VITALS: BP 110/59
[2021-06-01] MEDS: ZIPRASIDONE 60 MG CAPSULE. PO SCH (17:18)
[2021-06-01] MEDS: MIRTAZAPINE 7.5 MG TABLET. PO SCH (20:12)
[2021-06-01] MEDS: traZODone 100 MG TABLET. PO SCH (20:12)
--- NOTE | 2021-06-01 22:08 | NUR ---
Pt sitting quietly withdrawn to herself in the day room when approached. Pt calm, pleasant, and interactive during encounter. Pt cooperative with assessment and compliant with medications administered whole. Pt continues to report AH telling her to hurt herself but she has been able to resist them. Pt denies SI at this time.
--- NOTE | 2021-06-01 22:17 | PDOC ---
Exam Note: Bran Note: Please also refer to the separate dictated note~for this date of service dictated separately.~Patient seen individually. Discussed the patient with Nursing staff reviewed the chart.~Reviewed interim history and current functioning. Reviewed vital signs,~Labs/ Radiology~and current medications noted below. Continue current treatment with the changes noted in the dictated addendum note Assessment: Vital Signs/I&O: Vital Signs Date Time Temp Pulse Resp B/P (MAP) Pulse Ox O2 Delivery O2 Flow Rate FiO2 06/01/21 15:45 97.6 79 16 110/59 (76) 95 05/29/21 16:04 Room Air I & O 05/31/21 05/31/21 06/01/21 15:00 23:00 07:00 Intake Total 720 ml 480 ml Balance 720 ml 480 ml Current Medications: Meds: Current Medications Medications (Trade) Dose Ordered Sig/Ashley Route PRN Reason Start Time Stop Time Status Last Admin Dose Admin Acetaminophen (Tylenol) 650 mg PRN Q6HRS PRN PO MILD PAIN / TEMP > 100.3'F 05/19/21 19:45 Multi-Ingredient Ointment (Analgesic [place]) 1 rayo PRN QID PRN TP MUSCLE PAIN 05/19/21 19:45 Al Hydroxide/Mg Hydroxide (Mylanta Plus Xs) 15 ml PRN AFTMEALHC PRN PO DYSPEPSIA 05/19/21 19:45 Magnesium Hydroxide (Milk Of Magnesia) 2,400 mg PRN QHS PRN PO CONSTIPATION 05/19/21 19:45 05/19/21 23:53 Carbidopa/Levodopa (Sinemet 25/100) 0.5 tab TID PO 05/20/21 21:00 06/01/21 20:13 Lamotrigine (LaMICtal) 100 mg BID PO 05/20/21 21:00 06/01/21 20:12 Primidone (Mysoline) 100 mg QHS PO 05/20/21 21:00 05/31/21 17:46 DC 05/30/21 20:21 Non-Formulary Medication (Asenapine Maleate (Saphris)) 10 mg BID SL 05/20/21 21:00 05/25/21 12:51 DC 05/23/21 08:51 Non-Formulary Medication (Lumateperone Tosylate (Caplyta)) 42 mg DAILY PO 05/21/21 09:00 05/25/21 12:51 DC Lurasidone HCl (Latuda) 20 mg DAILYWBKFT PO 05/21/21 08:00 05/22/21 17:21 DC 05/21/21 08:25 Non-Formulary Medication ([propranolol ER] ) 120 mg DAILY PO 05/21/21 09:00 UNV Doxycycline Hyclate (Vibra-Tab) 100 mg BID PO 05/20/21 21:00 05/29/21 09:01 DC 05/29/21 08:43 Propranolol HCl (Inderal La) 120 mg DAILY PO 05/21/21 09:00 06/01/21 08:11 Lactobacillus Rhamnosus (Culturelle) 1 cap BID PO 05/21/21 09:00 06/01/21 20:12 Ziprasidone (Geodon) 20 mg BID PO 05/21/21 21:00 05/24/21 16:35 DC 05/24/21 08:52 Vitamin D (Vitamin D3) 50,000 unit WEEKLY PO 05/28/21 09:00 05/28/21 09:20 Cyanocobalamin (Vitamin B-12) 1,000 mcg Q4WK IM 05/22/21 09:00 05/22/21 11:01 Ziprasidone (Geodon) 20 mg DAILY PO 05/25/21 09:00 05/26/21 17:51 DC 05/26/21 08:48 Ziprasidone (Geodon) 40 mg 1700 PO 05/24/21 17:00 05/26/21 17:51 DC 05/26/21 17:34 Mirtazapine (Remeron) 7.5 mg QHS PO 05/25/21 21:00 06/01/21 20:12 Ziprasidone (Geodon) 40 mg 0900,1700 PO 05/27/21 09:00 05/28/21 10:53 DC 05/28/21 08:35 Trazodone HCl (Desyrel) 100 mg QHS PO 05/27/21 22:15 06/01/21 20:12 Trazodone HCl (Desyrel) 100 mg PRN QHS PRN PO Insomnia 05/27/21 22:15 Ziprasidone (Geodon) 40 mg 0900 PO 05/29/21 09:00 05/31/21 17:51 DC 05/31/21 05:39 Ziprasidone (Geodon) 60 mg 1700 PO 05/28/21 17:00 06/01/21 17:18 Iohexol (Omnipaque 350 Mg/ml) 100 ml 1X ONCE IV 05/28/21 12:45 05/28/21 12:46 DC Primidone (Mysoline) 150 mg TID PO 06/01/21 09:00 05/31/21 19:39 DC Fluvoxamine Maleate (Luvox) 25 mg DAILY PO 06/01/21 09:00 06/01/21 08:12 Ziprasidone (Geodon) 60 mg 0900 PO 06/01/21 09:00 06/01/21 08:12 Primidone (Mysoline) 150 mg TID PO 06/01/21 21:00 05/31/21 20:01 DC Primidone (Mysoline) 150 mg TID PO 05/31/21 21:00 06/01/21 20:12 Current Medications Medications (Trade) Dose Ordered Sig/Ashley Route PRN Reason Start Time Stop Time Status Last Admin Dose Admin Fluvoxamine Maleate (Luvox) 25 mg DAILY PO 06/01/21 09:00 06/01/21 08:12 Ziprasidone (Geodon) 60 mg 0900 PO 06/01/21 09:00 06/01/21 08:12 I have reviewed the current psychotropics carefully including drug interactions. Risk benefit ratio favors no change other than as noted in my dictated progress note. Diagnosis: Problems: (1) Anxiety disorder, unspecified (2) Major depressive disorder with psychotic features (3) Bipolar disorder, current episode mixed, severe, with psychotic features (4) Psychotic disorder (5) Parkinson's disease MYNOR FABIAN MD Jun 01, 2021 22:17
--- NOTE | 2021-06-02 05:52 | PN ---
DATE: 06/01/2021 SUBJECTIVE: The patient denies any new medical or neurological complaints. She continues to have a tremor of the upper extremities. She denies any recent head injuries or fall. The patient denies hallucination or suicidal ideation. However, earlier today, she voiced active suicidal ideation and had auditory hallucinations as well. OBJECTIVE: GENERAL: A well-developed, well-nourished female in no acute distress. VITAL SIGNS: Blood pressure 97/63, respiratory rate 18, pulse 73, temperature 97.6, oxygen saturation 97% on room air. HEENT: Normocephalic, atraumatic, otherwise unremarkable. NECK: Supple, negative for carotid bruit, lymphadenopathy or thyromegaly. LUNGS: Clear to A and P. CARDIOVASCULAR: Regular rate and rhythm, normal S1, S2. ABDOMEN: Soft. EXTREMITIES: Negative for cyanosis, clubbing or pedal edema. NEUROLOGIC: Mental status: The patient is alert and oriented x 2. The speech is fluent. There is no language dysfunction. Memory, judgment and abstracting thinking are fair. The patient voiced auditory hallucinations intermittently. Cranial nerves are intact. No focal motor or sensory deficit. The patient had a constant resting, and postural tremors of both upper extremities. Deep tendon reflexes were symmetric and active with absent Achilles responses. Gait, steady stance and she walked without assistance. IMPRESSION: 1. Constant resting, postural and kinetic tremors, probably multifactorial including essential tremor versus drug-induced Parkinsonian tremor, aggravated by anxiety disorders. 2. Multiple medical problems include hyperlipidemia, vitamin B12 deficiency and vitamin D deficiency with frequent urinary infections. RECOMMENDATIONS: We will continue current medical and psychiatric care. Continue with primidone and propranolol as before. AKILA SINGH: Jocelyn TID: [id number]
--- NOTE | 2021-06-02 05:55 | PN ---
DATE: 05/26/2021 SUBJECTIVE: The patient denies any new medical or neurological complaints; however, she continues to have constant tremor of the upper extremities. She denies any recent falls or head injuries. The patient describes intermittent visual hallucinations. OBJECTIVE: GENERAL: A well-developed, well-nourished female, not in acute distress. VITAL SIGNS: Blood pressure 94/62, respiratory rate 18, pulse is 73 and regular, temperature 97.2, oxygen saturation 96% on room air. HEENT: Normocephalic, atraumatic, otherwise unremarkable. NECK: Supple, negative for carotid bruit, lymphadenopathy or thyromegaly. LUNGS: Clear to A and P. CARDIOVASCULAR: Regular rate and rhythm, normal S1, S2. There is no S3, S4 or murmur. ABDOMEN: Soft. Bowel sounds positive. EXTREMITIES: Negative for cyanosis, clubbing or edema. NEUROLOGIC: Mental Status: The patient is alert and oriented x 3. The speech is fluent. There is no language dysfunctions. Cranial nerves are intact. Motor examination revealed no focal muscle bulk wasting. The patient has resting and kinetic and postural tremors of both upper extremities. The tone is normal. The strength is 4/5 throughout. Sensory examination revealed normal pinprick and light touch senses throughout. Deep tendon reflexes were symmetric and hypoactive with absent Achilles responses. Gait: The stance is steady. The patient walks without assistance. IMPRESSION: 1. Constant tremor as described above, probably multifactorial including essential tremor and drug-induced parkinsonian tremor. 2. Anxiety disorder may have contributed to the current tremor. 3. Multiple psychiatric problems include major depressions, anxiety disorder, bipolar disorder. 4. Multiple medical problems include vitamin D deficiency, vitamin B12 deficiency, frequent urinary infection, hyperlipidemia. RECOMMENDATIONS: Continue with current medical and psychiatric care. We will continue with the propranolol 120 mg long acting and primidone 100 mg t.i.d. Should the patient continue to have constant tremor, we will adjust her primidone. SILVIA/ROSALIE DR: SILVIA/aishwarya TID: [id number]
[2021-06-02 05:56] VITALS: BP 115/75
[2021-06-02] MEDS: LACTOBACILLUS RHAMNOSUS GG 1 CAPSULE. PO SCH ×2 (08:21→19:56)
[2021-06-02] MEDS: lamoTRIgine 100 MG TABLET. PO SCH ×2 (08:22→19:56)
[2021-06-02] MEDS: ZIPRASIDONE 20 MG CAPSULE. PO SCH (08:23)
[2021-06-02] MEDS: CARBIDOPA/LEVODOPA 25/100MG TABLET PO SCH ×3 (08:23→19:57)
[2021-06-02] MEDS: PRIMIDONE 50 MG TABLET PO SCH ×3 (08:23→19:57)
[2021-06-02] MEDS: PROPRANOLOL ER 60 MG CAP.SA.24H. PO SCH (08:24)
--- NOTE | 2021-06-02 10:59 | NUR ---
Patient up in day room, no suicidal ideation. Patient continues to hear voices she said she will not act on them.Patient is medication complaint. Socilizes with peers in day room for therapy.
[2021-06-02 15:31] VITALS: BP 163/73
[2021-06-02] MEDS: ZIPRASIDONE 60 MG CAPSULE. PO SCH (17:08)
[2021-06-02] MEDS: traZODone 100 MG TABLET. PO SCH (19:56)
[2021-06-02] MEDS: MIRTAZAPINE 7.5 MG TABLET. PO SCH (19:56)
--- NOTE | 2021-06-02 20:37 | PN ---
DATE: 05/31/2021 SUBJECTIVE: The patient continues to have constant tremor of the upper extremities. She continues to have intermittent suicidal ideations and auditory hallucinations. The patient has been on Geodon at 60 mg twice daily. Her current medications for tremor include primidone at 100 mg t.i.d. and propranolol long acting 120 mg p.o. daily. The patient denies any recent head injuries or fall. She denies any new medical or neurological complaints. OBJECTIVE: GENERAL: A well-developed, well-nourished female in no acute distress. VITAL SIGNS: Blood pressure is 106/67, respiratory rate 16, pulse is 63, temperature 98.6, oxygen saturation 96% on room air. HEENT: Normocephalic, atraumatic, otherwise unremarkable. NECK: Supple, negative for carotid bruit, lymphadenopathy or thyromegaly. LUNGS: Clear to A and P. CARDIOVASCULAR: Regular rate and rhythm, normal S1, S2. ABDOMEN: Soft. Bowel sounds positive. EXTREMITIES: Negative for cyanosis, clubbing or edema. NEUROLOGIC: Mental status: She is alert and oriented x3. Speech is clear. There is no language dysfunction. Cranial nerves are intact. No focal motor or sensory deficit. The patient has a constant resting, postural and kinetic tremors of both upper extremities. The tone is normal. The strength is 4/5 throughout. Deep tendon reflexes were symmetric and hypoactive with absent Achilles responses. Gait: The patient walked in the room without assistance. IMPRESSION: 1. Constant tremor of the upper extremities of unknown etiology, rule out drug-induced parkinsonian tremor ____ and essential tremor. 2. Multiple psychiatric problems include major depression, bipolar disorder, anxiety disorder. 3. Multiple medical problems include gastroesophageal reflux disease, hyperlipidemia, vitamin D deficiency and vitamin B12 deficiency. 4. Auditory hallucinations with suicidal ideations. RECOMMENDATIONS: 1. We will increase the primidone to 150 mg t.i.d. 2. We will adjust her carbidopa/levodopa. 3. Followup visit. 4. We will continue with current medical and psychiatric care. FRANKI DR: Jocelyn TID: [id number]
--- NOTE | 2021-06-02 21:47 | NUR ---
Pt sitting quietly in the day room when approached. Pt calm but withdrawn to herself this evening. Pt continues to report AH telling her to hurt herself but denies SI at this time. Pt cooperative with assessment and compliant with medications administered whole.
--- NOTE | 2021-06-02 22:15 | PDOC ---
Exam Note: Bran Note: Please also refer to the separate dictated note~for this date of service dictated separately.~Patient seen individually. Discussed the patient with Nursing staff reviewed the chart.~Reviewed interim history and current functioning. Reviewed vital signs,~Labs/ Radiology~and current medications noted below. Continue current treatment with the changes noted in the dictated addendum note Assessment: Vital Signs/I&O: Vital Signs Date Time Temp Pulse Resp B/P (MAP) Pulse Ox O2 Delivery O2 Flow Rate FiO2 06/02/21 15:31 97.8 73 16 163/73 (103) 96 05/29/21 16:04 Room Air I & O 06/01/21 06/01/21 06/02/21 15:00 23:00 07:00 Intake Total 1080 ml 480 ml Balance 1080 ml 480 ml Current Medications: Meds: Current Medications Medications (Trade) Dose Ordered Sig/Ashley Route PRN Reason Start Time Stop Time Status Last Admin Dose Admin Acetaminophen (Tylenol) 650 mg PRN Q6HRS PRN PO MILD PAIN / TEMP > 100.3'F 05/19/21 19:45 Multi-Ingredient Ointment (Analgesic [place]) 1 rayo PRN QID PRN TP MUSCLE PAIN 05/19/21 19:45 Al Hydroxide/Mg Hydroxide (Mylanta Plus Xs) 15 ml PRN AFTMEALHC PRN PO DYSPEPSIA 05/19/21 19:45 Magnesium Hydroxide (Milk Of Magnesia) 2,400 mg PRN QHS PRN PO CONSTIPATION 05/19/21 19:45 05/19/21 23:53 Carbidopa/Levodopa (Sinemet 25/100) 0.5 tab TID PO 05/20/21 21:00 06/02/21 19:57 Lamotrigine (LaMICtal) 100 mg BID PO 05/20/21 21:00 06/02/21 19:56 Primidone (Mysoline) 100 mg QHS PO 05/20/21 21:00 05/31/21 17:46 DC 05/30/21 20:21 Non-Formulary Medication (Asenapine Maleate (Saphris)) 10 mg BID SL 05/20/21 21:00 05/25/21 12:51 DC 05/23/21 08:51 Non-Formulary Medication (Lumateperone Tosylate (Caplyta)) 42 mg DAILY PO 05/21/21 09:00 05/25/21 12:51 DC Lurasidone HCl (Latuda) 20 mg DAILYWBKFT PO 05/21/21 08:00 05/22/21 17:21 DC 05/21/21 08:25 Non-Formulary Medication ([propranolol ER] ) 120 mg DAILY PO 05/21/21 09:00 UNV Doxycycline Hyclate (Vibra-Tab) 100 mg BID PO 05/20/21 21:00 05/29/21 09:01 DC 05/29/21 08:43 Propranolol HCl (Inderal La) 120 mg DAILY PO 05/21/21 09:00 06/02/21 08:24 Lactobacillus Rhamnosus (Culturelle) 1 cap BID PO 05/21/21 09:00 06/02/21 19:56 Ziprasidone (Geodon) 20 mg BID PO 05/21/21 21:00 05/24/21 16:35 DC 05/24/21 08:52 Vitamin D (Vitamin D3) 50,000 unit WEEKLY PO 05/28/21 09:00 05/28/21 09:20 Cyanocobalamin (Vitamin B-12) 1,000 mcg Q4WK IM 05/22/21 09:00 05/22/21 11:01 Ziprasidone (Geodon) 20 mg DAILY PO 05/25/21 09:00 05/26/21 17:51 DC 05/26/21 08:48 Ziprasidone (Geodon) 40 mg 1700 PO 05/24/21 17:00 05/26/21 17:51 DC 05/26/21 17:34 Mirtazapine (Remeron) 7.5 mg QHS PO 05/25/21 21:00 06/02/21 19:56 Ziprasidone (Geodon) 40 mg 0900,1700 PO 05/27/21 09:00 05/28/21 10:53 DC 05/28/21 08:35 Trazodone HCl (Desyrel) 100 mg QHS PO 05/27/21 22:15 06/02/21 19:56 Trazodone HCl (Desyrel) 100 mg PRN QHS PRN PO Insomnia 05/27/21 22:15 Ziprasidone (Geodon) 40 mg 0900 PO 05/29/21 09:00 05/31/21 17:51 DC 05/31/21 05:39 Ziprasidone (Geodon) 60 mg 1700 PO 05/28/21 17:00 06/02/21 17:08 Iohexol (Omnipaque 350 Mg/ml) 100 ml 1X ONCE IV 05/28/21 12:45 05/28/21 12:46 DC Primidone (Mysoline) 150 mg TID PO 06/01/21 09:00 05/31/21 19:39 DC Fluvoxamine Maleate (Luvox) 25 mg DAILY PO 06/01/21 09:00 06/02/21 08:21 Ziprasidone (Geodon) 60 mg 0900 PO 06/01/21 09:00 06/02/21 08:23 Primidone (Mysoline) 150 mg TID PO 06/01/21 21:00 05/31/21 20:01 DC Primidone (Mysoline) 150 mg TID PO 05/31/21 21:00 06/02/21 19:57 I have reviewed the current psychotropics carefully including drug interactions. Risk benefit ratio favors no change other than as noted in my dictated progress note. Diagnosis: Problems: (1) Anxiety disorder, unspecified (2) Major depressive disorder with psychotic features (3) Bipolar disorder, current episode mixed, severe, with psychotic features (4) Psychotic disorder (5) Parkinson's disease MYNOR FABIAN MD Jun 02, 2021 22:15
[2021-06-03 05:47] VITALS: BP 97/65
[2021-06-03 06:21] LABS: BASO % 0 % (0-3); EOS # 0.2 x10^3/uL (0.0-0.7); EOS % 3 % (0-3); HEMATOCRIT 31.1 % (36.0-47.0); HEMOGLOBIN 10.4 g/dL (12.0-15.5); LYMPH # 2.1 x10^3/uL (1.0-4.8); LYMPH % 34 % (24-48); MEAN CORPUSCULAR HEMOGLOBIN 31 pg (25-35); MEAN CORPUSCULAR HGB CONC 33 g/dL (31-37); MEAN CORPUSCULAR VOLUME 94 fL (79-100); MONO # 0.4 x10^3/uL (0.0-1.1); MONO % 6 % (0-9); NEUT # 3.6 x10^3uL (1.8-7.7); NEUT % 57 % (31-73); PLATELET COUNT 188 x10^3/uL (140-400); RED BLOOD COUNT 3.31 x10^6/uL (3.50-5.40); RED CELL DISTRIBUTION WIDTH 13.5 % (11.5-14.5); WHITE BLOOD COUNT 6.3 x10^3/uL (4.0-11.0)
[2021-06-03 06:38] LABS: ALBUMIN 2.6 g/dL (3.4-5.0); ALBUMIN/GLOBULIN RATIO 0.9 (1.0-1.7); CALCIUM 7.8 mg/dL (8.5-10.1); CREATININE 1.1 mg/dL (0.6-1.0); GFR 50.7; POTASSIUM 4.3 mmol/L (3.5-5.1); TOTAL BILIRUBIN 0.3 mg/dL (0.2-1.0); TOTAL PROTEIN 5.6 g/dL (6.4-8.2)
[2021-06-03] MEDS: PRIMIDONE 50 MG TABLET PO SCH ×3 (08:16→19:56)
[2021-06-03] MEDS: PROPRANOLOL ER 60 MG CAP.SA.24H. PO SCH (08:16)
[2021-06-03] MEDS: CARBIDOPA/LEVODOPA 25/100MG TABLET PO SCH ×3 (08:17→19:56)
[2021-06-03] MEDS: ZIPRASIDONE 20 MG CAPSULE. PO SCH (08:17)
[2021-06-03] MEDS: lamoTRIgine 100 MG TABLET. PO SCH ×2 (08:18→19:57)
[2021-06-03] MEDS: LACTOBACILLUS RHAMNOSUS GG 1 CAPSULE. PO SCH ×2 (08:18→19:57)
--- NOTE | 2021-06-03 09:07 | PDOC ---
Exam Note: Bran Note: This note is a late entry for 06/01/2021 covers elements not covered in my initial note. Subjective: The patient was seen individually in the evening of 06/01/2021 with Matheus NAVARRO, discussed and reviewed the chart. The patient slept 7-1/2 hours previous night. She denies any hallucinations but remains somewhat withdrawn. Review of Systems: Positive for parkinsonian tremors. No CV, , pulmonary, eye, ENT system symptoms on review. Mental Status Exam: The patient is alert and oriented to herself. Speech is coherent. Abstraction fair. Computation impaired. Language function intact. Attention span short. Mood and affect somewhat withdrawn. No active suicidal ideation. When I questioned her specifically on any hallucinations she states she still experiences them but denied any suicidal or homicidal ideation. She is somewhat distractible, anxious. Laboratory Data: Reviewed. Impression: Major depressive disorder with psychotic features. Bipolar disorder, mixed with psychotic features. Anxiety disorder unspecified. Parkinsons disease. Psychotic disorder unspecified. Plan: Continue current psychotropics. Assessment: Vital Signs/I&O: Vital Signs Date Time Temp Pulse Resp B/P (MAP) Pulse Ox O2 Delivery O2 Flow Rate FiO2 06/03/21 08:16 72 97/65 06/03/21 05:47 98.4 20 96 Room Air I & O 06/02/21 06/02/21 06/03/21 15:00 23:00 07:00 Intake Total 1220 ml 600 ml Balance 1220 ml 600 ml Labs: Laboratory Tests Test 06/03/21 05:57 White Blood Count 6.3 x10^3/uL (4.0-11.0) Red Blood Count 3.31 x10^6/uL (3.50-5.40) L Hemoglobin 10.4 g/dL (12.0-15.5) L Hematocrit 31.1 % (36.0-47.0) L Mean Corpuscular Volume 94 fL (79-100) Mean Corpuscular Hemoglobin 31 pg (25-35) Mean Corpuscular Hemoglobin Concent 33 g/dL (31-37) Red Cell Distribution Width 13.5 % (11.5-14.5) Platelet Count 188 x10^3/uL (140-400) Neutrophils (%) (Auto) 57 % (31-73) Lymphocytes (%) (Auto) 34 % (24-48) Monocytes (%) (Auto) 6 % (0-9) Eosinophils (%) (Auto) 3 % (0-3) Basophils (%) (Auto) 0 % (0-3) Neutrophils # (Auto) 3.6 x10^3uL (1.8-7.7) Lymphocytes # (Auto) 2.1 x10^3/uL (1.0-4.8) Monocytes # (Auto) 0.4 x10^3/uL (0.0-1.1) Eosinophils # (Auto) 0.2 x10^3/uL (0.0-0.7) Basophils # (Auto) 0.0 x10^3/uL (0.0-0.2) Sodium Level 140 mmol/L (136-145) Potassium Level 4.3 mmol/L (3.5-5.1) Chloride Level 104 mmol/L (98-107) Carbon Dioxide Level 30 mmol/L (21-32) Anion Gap 6 (6-14) Blood Urea Nitrogen 19 mg/dL (7-20) Creatinine 1.1 mg/dL (0.6-1.0) H Estimated GFR (Cockcroft-Gault) 50.7 BUN/Creatinine Ratio 17 (6-20) Glucose Level 82 mg/dL (70-99) Calcium Level 7.8 mg/dL (8.5-10.1) L Total Bilirubin 0.3 mg/dL (0.2-1.0) Aspartate Amino Transferase (AST) 11 U/L (15-37) L Alanine Aminotransferase (ALT) 14 U/L (14-59) Alkaline Phosphatase 59 U/L (46-116) Total Protein 5.6 g/dL (6.4-8.2) L Albumin 2.6 g/dL (3.4-5.0) L Albumin/Globulin Ratio 0.9 (1.0-1.7) L Current Medications: Meds: Laboratory Tests Test 06/03/21 05:57 White Blood Count 6.3 x10^3/uL Red Blood Count 3.31 x10^6/uL Hemoglobin 10.4 g/dL Hematocrit 31.1 % Mean Corpuscular Volume 94 fL Mean Corpuscular Hemoglobin 31 pg Mean Corpuscular Hemoglobin Concent 33 g/dL Red Cell Distribution Width 13.5 % Platelet Count 188 x10^3/uL Neutrophils (%) (Auto) 57 % Lymphocytes (%) (Auto) 34 % Monocytes (%) (Auto) 6 % Eosinophils (%) (Auto) 3 % Basophils (%) (Auto) 0 % Neutrophils # (Auto) 3.6 x10^3uL Lymphocytes # (Auto) 2.1 x10^3/uL Monocytes # (Auto) 0.4 x10^3/uL Eosinophils # (Auto) 0.2 x10^3/uL Basophils # (Auto) 0.0 x10^3/uL Sodium Level 140 mmol/L Potassium Level 4.3 mmol/L Chloride Level 104 mmol/L Carbon Dioxide Level 30 mmol/L Anion Gap 6 Blood Urea Nitrogen 19 mg/dL Creatinine 1.1 mg/dL Estimated GFR (Cockcroft-Gault) 50.7 BUN/Creatinine Ratio 17 Glucose Level 82 mg/dL Calcium Level 7.8 mg/dL Total Bilirubin 0.3 mg/dL Aspartate Amino Transf (AST/SGOT) 11 U/L Alanine Aminotransferase (ALT/SGPT) 14 U/L Alkaline Phosphatase 59 U/L Total Protein 5.6 g/dL Albumin 2.6 g/dL Albumin/Globulin Ratio 0.9 Current Medications Medications (Trade) Dose Ordered Sig/Ashley Route PRN Reason Start Time Stop Time Status Last Admin Dose Admin Acetaminophen (Tylenol) 650 mg PRN Q6HRS PRN PO MILD PAIN / TEMP > 100.3'F 05/19/21 19:45 Multi-Ingredient Ointment (Analgesic [place]) 1 rayo PRN QID PRN TP MUSCLE PAIN 05/19/21 19:45 Al Hydroxide/Mg Hydroxide (Mylanta Plus Xs) 15 ml PRN AFTMEALHC PRN PO DYSPEPSIA 05/19/21 19:45 Magnesium Hydroxide (Milk Of Magnesia) 2,400 mg PRN QHS PRN PO CONSTIPATION 05/19/21 19:45 05/19/21 23:53 Carbidopa/Levodopa (Sinemet 25/100) 0.5 tab TID PO 05/20/21 21:00 06/03/21 08:17 Lamotrigine (LaMICtal) 100 mg BID PO 05/20/21 21:00 06/03/21 08:18 Primidone (Mysoline) 100 mg QHS PO 05/20/21 21:00 05/31/21 17:46 DC 05/30/21 20:21 Non-Formulary Medication (Asenapine Maleate (Saphris)) 10 mg BID SL 05/20/21 21:00 05/25/21 12:51 DC 05/23/21 08:51 Non-Formulary Medication (Lumateperone Tosylate (Caplyta)) 42 mg DAILY PO 05/21/21 09:00 05/25/21 12:51 DC Lurasidone HCl (Latuda) 20 mg DAILYWBKFT PO 05/21/21 08:00 05/22/21 17:21 DC 05/21/21 08:25 Non-Formulary Medication ([propranolol ER] ) 120 mg DAILY PO 05/21/21 09:00 UNV Doxycycline Hyclate (Vibra-Tab) 100 mg BID PO 05/20/21 21:00 05/29/21 09:01 DC 05/29/21 08:43 Propranolol HCl (Inderal La) 120 mg DAILY PO 05/21/21 09:00 06/03/21 08:16 Lactobacillus Rhamnosus (Culturelle) 1 cap BID PO 05/21/21 09:00 06/03/21 08:18 Ziprasidone (Geodon) 20 mg BID PO 05/21/21 21:00 05/24/21 16:35 DC 05/24/21 08:52 Vitamin D (Vitamin D3) 50,000 unit WEEKLY PO 05/28/21 09:00 05/28/21 09:20 Cyanocobalamin (Vitamin B-12) 1,000 mcg Q4WK IM 05/22/21 09:00 05/22/21 11:01 Ziprasidone (Geodon) 20 mg DAILY PO 05/25/21 09:00 05/26/21 17:51 DC 05/26/21 08:48 Ziprasidone (Geodon) 40 mg 1700 PO 05/24/21 17:00 05/26/21 17:51 DC 05/26/21 17:34 Mirtazapine (Remeron) 7.5 mg QHS PO 05/25/21 21:00 06/02/21 19:56 Ziprasidone (Geodon) 40 mg 0900,1700 PO 05/27/21 09:00 05/28/21 10:53 DC 05/28/21 08:35 Trazodone HCl (Desyrel) 100 mg QHS PO 05/27/21 22:15 06/02/21 19:56 Trazodone HCl (Desyrel) 100 mg PRN QHS PRN PO Insomnia 05/27/21 22:15 Ziprasidone (Geodon) 40 mg 0900 PO 05/29/21 09:00 05/31/21 17:51 DC 05/31/21 05:39 Ziprasidone (Geodon) 60 mg 1700 PO 05/28/21 17:00 06/02/21 17:08 Iohexol (Omnipaque 350 Mg/ml) 100 ml 1X ONCE IV 05/28/21 12:45 05/28/21 12:46 DC Primidone (Mysoline) 150 mg TID PO 06/01/21 09:00 05/31/21 19:39 DC Fluvoxamine Maleate (Luvox) 25 mg DAILY PO 06/01/21 09:00 06/03/21 08:17 Ziprasidone (Geodon) 60 mg 0900 PO 06/01/21 09:00 06/03/21 08:17 Primidone (Mysoline) 150 mg TID PO 06/01/21 21:00 05/31/21 20:01 DC Primidone (Mysoline) 150 mg TID PO 05/31/21 21:00 06/03/21 08:16 I have reviewed the current psychotropics carefully including drug interactions. Risk benefit ratio favors no change other than as noted in my dictated progress note. Diagnosis: Problems: (1) Anxiety disorder, unspecified (2) Major depressive disorder with psychotic features (3) Bipolar disorder, current episode mixed, severe, with psychotic features (4) Psychotic disorder (5) Parkinson's disease MYNOR FABIAN MD Jun 03, 2021 09:07
--- NOTE | 2021-06-03 09:29 | PDOC ---
Exam Note: Bran Note: This note is a late entry for 06/02/2021 covers elements not covered in my initial note. Subjective: The patient was seen individually in the evening of 06/02/2021 with Gianna NAVARRO, discussed and reviewed the chart. The patient slept 7 hours previous night. She had some complaints of some intermittent hallucinations but no active suicidal or homicidal ideation. Review of Systems: Positive for parkinsonian tremors. No CV, , pulmonary, eye, ENT system symptoms on review. Mental Status Exam: The patient is alert and oriented to herself. Speech is coherent. Abstraction fair. Computation impaired. Language function intact. Attention span short. Mood and affect somewhat withdrawn. No active suicidal ideation. Laboratory Data: Reviewed. Impression: Major depressive disorder with psychotic features. Bipolar disorder, mixed with psychotic features. Anxiety disorder unspecified. Parkinsons disease. Psychotic disorder unspecified. Plan: Continue current psychotropics unchanged. Assessment: Vital Signs/I&O: Vital Signs Date Time Temp Pulse Resp B/P (MAP) Pulse Ox O2 Delivery O2 Flow Rate FiO2 06/03/21 08:16 72 97/65 06/03/21 05:47 98.4 20 96 Room Air I & O 06/02/21 06/02/21 06/03/21 15:00 23:00 07:00 Intake Total 1220 ml 600 ml Balance 1220 ml 600 ml Labs: Laboratory Tests Test 06/03/21 05:57 White Blood Count 6.3 x10^3/uL (4.0-11.0) Red Blood Count 3.31 x10^6/uL (3.50-5.40) L Hemoglobin 10.4 g/dL (12.0-15.5) L Hematocrit 31.1 % (36.0-47.0) L Mean Corpuscular Volume 94 fL (79-100) Mean Corpuscular Hemoglobin 31 pg (25-35) Mean Corpuscular Hemoglobin Concent 33 g/dL (31-37) Red Cell Distribution Width 13.5 % (11.5-14.5) Platelet Count 188 x10^3/uL (140-400) Neutrophils (%) (Auto) 57 % (31-73) Lymphocytes (%) (Auto) 34 % (24-48) Monocytes (%) (Auto) 6 % (0-9) Eosinophils (%) (Auto) 3 % (0-3) Basophils (%) (Auto) 0 % (0-3) Neutrophils # (Auto) 3.6 x10^3uL (1.8-7.7) Lymphocytes # (Auto) 2.1 x10^3/uL (1.0-4.8) Monocytes # (Auto) 0.4 x10^3/uL (0.0-1.1) Eosinophils # (Auto) 0.2 x10^3/uL (0.0-0.7) Basophils # (Auto) 0.0 x10^3/uL (0.0-0.2) Sodium Level 140 mmol/L (136-145) Potassium Level 4.3 mmol/L (3.5-5.1) Chloride Level 104 mmol/L (98-107) Carbon Dioxide Level 30 mmol/L (21-32) Anion Gap 6 (6-14) Blood Urea Nitrogen 19 mg/dL (7-20) Creatinine 1.1 mg/dL (0.6-1.0) H Estimated GFR (Cockcroft-Gault) 50.7 BUN/Creatinine Ratio 17 (6-20) Glucose Level 82 mg/dL (70-99) Calcium Level 7.8 mg/dL (8.5-10.1) L Total Bilirubin 0.3 mg/dL (0.2-1.0) Aspartate Amino Transferase (AST) 11 U/L (15-37) L Alanine Aminotransferase (ALT) 14 U/L (14-59) Alkaline Phosphatase 59 U/L (46-116) Total Protein 5.6 g/dL (6.4-8.2) L Albumin 2.6 g/dL (3.4-5.0) L Albumin/Globulin Ratio 0.9 (1.0-1.7) L Current Medications: Meds: Laboratory Tests Test 06/03/21 05:57 White Blood Count 6.3 x10^3/uL Red Blood Count 3.31 x10^6/uL Hemoglobin 10.4 g/dL Hematocrit 31.1 % Mean Corpuscular Volume 94 fL Mean Corpuscular Hemoglobin 31 pg Mean Corpuscular Hemoglobin Concent 33 g/dL Red Cell Distribution Width 13.5 % Platelet Count 188 x10^3/uL Neutrophils (%) (Auto) 57 % Lymphocytes (%) (Auto) 34 % Monocytes (%) (Auto) 6 % Eosinophils (%) (Auto) 3 % Basophils (%) (Auto) 0 % Neutrophils # (Auto) 3.6 x10^3uL Lymphocytes # (Auto) 2.1 x10^3/uL Monocytes # (Auto) 0.4 x10^3/uL Eosinophils # (Auto) 0.2 x10^3/uL Basophils # (Auto) 0.0 x10^3/uL Sodium Level 140 mmol/L Potassium Level 4.3 mmol/L Chloride Level 104 mmol/L Carbon Dioxide Level 30 mmol/L Anion Gap 6 Blood Urea Nitrogen 19 mg/dL Creatinine 1.1 mg/dL Estimated GFR (Cockcroft-Gault) 50.7 BUN/Creatinine Ratio 17 Glucose Level 82 mg/dL Calcium Level 7.8 mg/dL Total Bilirubin 0.3 mg/dL Aspartate Amino Transf (AST/SGOT) 11 U/L Alanine Aminotransferase (ALT/SGPT) 14 U/L Alkaline Phosphatase 59 U/L Total Protein 5.6 g/dL Albumin 2.6 g/dL Albumin/Globulin Ratio 0.9 Current Medications Medications (Trade) Dose Ordered Sig/Ashley Route PRN Reason Start Time Stop Time Status Last Admin Dose Admin Acetaminophen (Tylenol) 650 mg PRN Q6HRS PRN PO MILD PAIN / TEMP > 100.3'F 05/19/21 19:45 Multi-Ingredient Ointment (Analgesic [place]) 1 rayo PRN QID PRN TP MUSCLE PAIN 05/19/21 19:45 Al Hydroxide/Mg Hydroxide (Mylanta Plus Xs) 15 ml PRN AFTMEALHC PRN PO DYSPEPSIA 05/19/21 19:45 Magnesium Hydroxide (Milk Of Magnesia) 2,400 mg PRN QHS PRN PO CONSTIPATION 05/19/21 19:45 05/19/21 23:53 Carbidopa/Levodopa (Sinemet 25/100) 0.5 tab TID PO 05/20/21 21:00 06/03/21 08:17 Lamotrigine (LaMICtal) 100 mg BID PO 05/20/21 21:00 06/03/21 08:18 Primidone (Mysoline) 100 mg QHS PO 05/20/21 21:00 05/31/21 17:46 DC 05/30/21 20:21 Non-Formulary Medication (Asenapine Maleate (Saphris)) 10 mg BID SL 05/20/21 21:00 05/25/21 12:51 DC 05/23/21 08:51 Non-Formulary Medication (Lumateperone Tosylate (Caplyta)) 42 mg DAILY PO 05/21/21 09:00 05/25/21 12:51 DC Lurasidone HCl (Latuda) 20 mg DAILYWBKFT PO 05/21/21 08:00 05/22/21 17:21 DC 05/21/21 08:25 Non-Formulary Medication ([propranolol ER] ) 120 mg DAILY PO 05/21/21 09:00 UNV Doxycycline Hyclate (Vibra-Tab) 100 mg BID PO 05/20/21 21:00 05/29/21 09:01 DC 05/29/21 08:43 Propranolol HCl (Inderal La) 120 mg DAILY PO 05/21/21 09:00 06/03/21 08:16 Lactobacillus Rhamnosus (Culturelle) 1 cap BID PO 05/21/21 09:00 06/03/21 08:18 Ziprasidone (Geodon) 20 mg BID PO 05/21/21 21:00 05/24/21 16:35 DC 05/24/21 08:52 Vitamin D (Vitamin D3) 50,000 unit WEEKLY PO 05/28/21 09:00 05/28/21 09:20 Cyanocobalamin (Vitamin B-12) 1,000 mcg Q4WK IM 05/22/21 09:00 05/22/21 11:01 Ziprasidone (Geodon) 20 mg DAILY PO 05/25/21 09:00 05/26/21 17:51 DC 05/26/21 08:48 Ziprasidone (Geodon) 40 mg 1700 PO 05/24/21 17:00 05/26/21 17:51 DC 05/26/21 17:34 Mirtazapine (Remeron) 7.5 mg QHS PO 05/25/21 21:00 06/02/21 19:56 Ziprasidone (Geodon) 40 mg 0900,1700 PO 05/27/21 09:00 05/28/21 10:53 DC 05/28/21 08:35 Trazodone HCl (Desyrel) 100 mg QHS PO 05/27/21 22:15 06/02/21 19:56 Trazodone HCl (Desyrel) 100 mg PRN QHS PRN PO Insomnia 05/27/21 22:15 Ziprasidone (Geodon) 40 mg 0900 PO 05/29/21 09:00 05/31/21 17:51 DC 05/31/21 05:39 Ziprasidone (Geodon) 60 mg 1700 PO 05/28/21 17:00 06/02/21 17:08 Iohexol (Omnipaque 350 Mg/ml) 100 ml 1X ONCE IV 05/28/21 12:45 05/28/21 12:46 DC Primidone (Mysoline) 150 mg TID PO 06/01/21 09:00 05/31/21 19:39 DC Fluvoxamine Maleate (Luvox) 25 mg DAILY PO 06/01/21 09:00 06/03/21 08:17 Ziprasidone (Geodon) 60 mg 0900 PO 06/01/21 09:00 06/03/21 08:17 Primidone (Mysoline) 150 mg TID PO 06/01/21 21:00 05/31/21 20:01 DC Primidone (Mysoline) 150 mg TID PO 05/31/21 21:00 06/03/21 08:16 I have reviewed the current psychotropics carefully including drug interactions. Risk benefit ratio favors no change other than as noted in my dictated progress note. Diagnosis: Problems: (1) Anxiety disorder, unspecified (2) Major depressive disorder with psychotic features (3) Bipolar disorder, current episode mixed, severe, with psychotic features (4) Psychotic disorder (5) Parkinson's disease MYNOR FABIAN MD Jun 03, 2021 09:29
--- NOTE | 2021-06-03 14:43 | NUR ---
Pt A&Ox4, appropriate with her interactions with others. Denies SI/HI/VH at this time. She reports experiencing CAH in the form of voices encouraging her to kill herself. Pt states she is able to ignore the CAH. She has no complaints or concerns at this time. Compliant with whole medications. She appears to be present in the day room this afternoon and naps on and off. Plan of care continues, will pass to next shift.
[2021-06-03 15:42] VITALS: BP 96/64
[2021-06-03] MEDS: ZIPRASIDONE 60 MG CAPSULE. PO SCH (17:01)
[2021-06-03] MEDS: traZODone 100 MG TABLET. PO SCH (19:57)
[2021-06-03] MEDS: MIRTAZAPINE 7.5 MG TABLET. PO SCH (19:57)
--- NOTE | 2021-06-03 21:09 | NUR ---
Patient was sitting in the day room watching a movie with peers. She takes her medications whole and is cooperative with assessments. Patient stated that she still hears voices telling her to hurt herself. She stated she thinks it is God, but that she is not going to do anything to hurt herself. Patient denies pain when asked. Will continue to monitor.
[2021-06-04 06:10] VITALS: BP 111/61
--- NOTE | 2021-06-04 06:44 | PDOC ---
Exam Note: Bran Note: Late entry for 06/03/2021. Please also refer to the separate dictated note~for this date of service dictated separately.~Patient seen individually. Discussed the patient with Nursing staff reviewed the chart.~Reviewed interim history and current functioning. Reviewed vital signs,~Labs/ Radiology~and current medic ations noted below. Continue current treatment with the changes noted in the dictated addendum note Assessment: Vital Signs/I&O: Vital Signs Date Time Temp Pulse Resp B/P (MAP) Pulse Ox O2 Delivery O2 Flow Rate FiO2 06/04/21 06:10 97.6 98 18 111/61 (78) 94 06/03/21 15:42 Room Air I & O 0 06/03/21 06/03/21 06/04/21 15:00 23:00 07:00 Intake Total 840 ml 640 ml Balance 840 ml 640 ml Current Medications: Meds: Current Medications Medications (Trade) Dose Ordered Sig/Ashley Route PRN Reason Start Time Stop Time Status Last Admin Dose Admin Acetaminophen (Tylenol) 650 mg PRN Q6HRS PRN PO MILD PAIN / TEMP > 100.3'F 05/19/21 19:45 Multi-Ingredient Ointment (Analgesic [place]) 1 rayo PRN QID PRN TP MUSCLE PAIN 05/19/21 19:45 Al Hydroxide/Mg Hydroxide (Mylanta Plus Xs) 15 ml PRN AFTMEALHC PRN PO DYSPEPSIA 05/19/21 19:45 Magnesium Hydroxide (Milk Of Magnesia) 2,400 mg PRN QHS PRN PO CONSTIPATION 05/19/21 19:45 05/19/21 23:53 Carbidopa/Levodopa (Sinemet 25/100) 0.5 tab TID PO 05/20/21 21:00 06/03/21 19:56 Lamotrigine (LaMICtal) 100 mg BID PO 05/20/21 21:00 06/03/21 19:57 Primidone (Mysoline) 100 mg QHS PO 05/20/21 21:00 05/31/21 17:46 DC 05/30/21 20:21 Non-Formulary Medication (Asenapine Maleate (Saphris)) 10 mg BID SL 05/20/21 21:00 05/25/21 12:51 DC 05/23/21 08:51 Non-Formulary Medication (Lumateperone Tosylate (Caplyta)) 42 mg DAILY PO 05/21/21 09:00 05/25/21 12:51 DC Lurasidone HCl (Latuda) 20 mg DAILYWBKFT PO 05/21/21 08:00 05/22/21 17:21 DC 05/21/21 08:25 Non-Formulary Medication ([propranolol ER] ) 120 mg DAILY PO 05/21/21 09:00 UNV Doxycycline Hyclate (Vibra-Tab) 100 mg BID PO 05/20/21 21:00 05/29/21 09:01 DC 05/29/21 08:43 Propranolol HCl (Inderal La) 120 mg DAILY PO 05/21/21 09:00 06/03/21 08:16 Lactobacillus Rhamnosus (Culturelle) 1 cap BID PO 05/21/21 09:00 06/03/21 19:57 Ziprasidone (Geodon) 20 mg BID PO 05/21/21 21:00 05/24/21 16:35 DC 05/24/21 08:52 Vitamin D (Vitamin D3) 50,000 unit WEEKLY PO 05/28/21 09:00 05/28/21 09:20 Cyanocobalamin (Vitamin B-12) 1,000 mcg Q4WK IM 05/22/21 09:00 05/22/21 11:01 Ziprasidone (Geodon) 20 mg DAILY PO 05/25/21 09:00 05/26/21 17:51 DC 05/26/21 08:48 Ziprasidone (Geodon) 40 mg 1700 PO 05/24/21 17:00 05/26/21 17:51 DC 05/26/21 17:34 Mirtazapine (Remeron) 7.5 mg QHS PO 05/25/21 21:00 06/03/21 19:57 Ziprasidone (Geodon) 40 mg 0900,1700 PO 05/27/21 09:00 05/28/21 10:53 DC 05/28/21 08:35 Trazodone HCl (Desyrel) 100 mg QHS PO 05/27/21 22:15 06/03/21 19:57 Trazodone HCl (Desyrel) 100 mg PRN QHS PRN PO Insomnia 05/27/21 22:15 Ziprasidone (Geodon) 40 mg 0900 PO 05/29/21 09:00 05/31/21 17:51 DC 05/31/21 05:39 Ziprasidone (Geodon) 60 mg 1700 PO 05/28/21 17:00 06/03/21 17:35 DC 06/03/21 17:01 Iohexol (Omnipaque 350 Mg/ml) 100 ml 1X ONCE IV 05/28/21 12:45 05/28/21 12:46 DC Primidone (Mysoline) 150 mg TID PO 06/01/21 09:00 05/31/21 19:39 DC Fluvoxamine Maleate (Luvox) 25 mg DAILY PO 06/01/21 09:00 06/03/21 17:35 DC 06/03/21 08:17 Ziprasidone (Geodon) 60 mg 0900 PO 06/01/21 09:00 06/03/21 08:17 Primidone (Mysoline) 150 mg TID PO 06/01/21 21:00 05/31/21 20:01 DC Primidone (Mysoline) 150 mg TID PO 05/31/21 21:00 06/03/21 19:56 Ziprasidone (Geodon) 80 mg 1700 PO 06/04/21 17:00 Fluvoxamine Maleate (Luvox) 50 mg DAILY PO 06/04/21 09:00 I have reviewed the current psychotropics carefully including drug interactions. Risk benefit ratio favors no change other than as noted in my dictated progress note. Diagnosis: Problems: (1) Anxiety disorder, unspecified (2) Major depressive disorder with psychotic features (3) Bipolar disorder, current episode mixed, severe, with psychotic features (4) Psychotic disorder (5) Parkinson's disease MYNOR FABIAN MD Jun 04, 2021 06:44
[2021-06-04 08:13] VITALS: BP 111/61
[2021-06-04] MEDS: CARBIDOPA/LEVODOPA 25/100MG TABLET PO SCH ×2 (08:13→14:28)
[2021-06-04] MEDS: PRIMIDONE 50 MG TABLET PO SCH ×2 (08:13→14:28)
[2021-06-04] MEDS: PROPRANOLOL ER 60 MG CAP.SA.24H. PO SCH (08:13)
[2021-06-04] MEDS: lamoTRIgine 100 MG TABLET. PO SCH (08:14)
[2021-06-04] MEDS: LACTOBACILLUS RHAMNOSUS GG 1 CAPSULE. PO SCH (08:14)
[2021-06-04] MEDS: ZIPRASIDONE 20 MG CAPSULE. PO SCH (08:14)
[2021-06-04] MEDS: CHOLECALCIFEROL (VITAMIN D3) 50,000 UNIT CAPSULE PO SCH (09:22)
--- NOTE | 2021-06-04 09:38 | NUR ---
Treatment team update: Awilda Diaz dtr participated in treatment team via telephone. Pt is eating 100% of meals and sleeping on average 7 hours per night. Pt is compliant with medications whole. Pt continues to have auditory hallucinations stating that God is telling her to hurt herself; however, she said she isn't going to do it. She is participated in at least 8 groups this week with minimal to moderate participation; furthermore, pt is withdrawn from staff unless staff approaches and talks to her. Pt continues to get her Geodon dose increased and is on Luvox to aid in her rumination/thinking process. ELOS for 06/10.
--- NOTE | 2021-06-04 10:57 | NUR ---
Patient up in day room for group therapy, she participates well in group. She socializes with her peers. Medication compliant for nursing. Continues to hear voices, patient says the voices tell her to harm herself and other". Patient saqy she will not do it. Dr. Reese is aware.
--- NOTE | 2021-06-04 12:44 | NUR ---
WEEKLY ACTIVITY THERAPY NOTE Date of Admission: 05/20/2021 Date of AT Assessment:05/22 Precipitating behaviors that initiated intake and admission: Auditory hallucinations (command to harm self), SI attempt, depression, insomnia Goal aimed:support socialization and engagement Initial Goal: Pt will participate in at least five group Activity Therapy sessions per week Goal changed 05/28:Pt will participate in all Activity Therapy groups offered. Weekly progress towards goal: did not achieve, 06/15 Group participation level: 1 min, 2 mod, 5 full Weekly highlights: exercise Tuesday, watched [employer] Tuesday, grid categories Tuesday, gardening Tuesday, guessed a couple of songs in songs across the [employer] group Tuesday Behaviors observed: pleasant,independent, social Plan: no change to goal Beneficial adaptations: socialization
--- NOTE | 2021-06-04 13:36 | NUR ---
MONE contacted pt dtr, Awilda, to inform her of pt positive Covid results. Pt will discharge downstairs to the [facility] for a 10-day quarantine; pt will be in room 132. MONE informed pt dtr that the staff will be able to give her updates during the 10-day quarantine and MONE will continue to work on pt discharge plan.
[2021-06-04] MEDS ORDERED: ZIPR40CA2 PO (13:42)
[2021-06-04] MEDS ORDERED: ZIPR20CA2 PO (13:43)
[2021-06-04] MEDS ORDERED: CYAN10002 IJ (13:45)
[2021-06-04] MEDS ORDERED: LACT1CAP19 PO (13:45)
[2021-06-04] MEDS ORDERED: MAGN24003 PO (13:46)
[2021-06-04] MEDS ORDERED: MAG355OR17 PO (13:47)
[2021-06-04] MEDS ORDERED: FLUV50TA2 PO (13:48)
[2021-06-04] MEDS ORDERED: MIRT-37 PO (13:49)
[2021-06-04] MEDS ORDERED: TRAZ-125 PO ×2 (13:49→13:50)
[2021-06-04] MEDS ORDERED: CHOL500021 PO (13:51)
[2021-06-04] MEDS ORDERED: ACET325T21 PO (13:52)
[2021-06-04] MEDS ORDERED: METH57CR17 TP (13:54)
--- NOTE | 2021-06-04 14:22 | NUR ---
Transition Record was faxed to follow-up provider with the following elements: Reason for admission, procedures, tests, principal diagnosis, pending studies, patient instructions, 30/05 contact information for unit, phone number to obtain pending test results, plan for follow-up care, physician follow-up, advanced directive information, and medication list with dose, duration and instructions. This information was included in the following documents: History and physical, lab results, study results, progress notes, social work planning form, DC instruction form, patient visit summary, and medication reconciliation form. Date & time record faxed: 06/04/21 13:15 Record faxed to: Hina NAVARRO [facility] Record discussed with/ report given to: Hina NAVARRO
[2021-06-04] MEDS ORDERED: ZIPRASIDONE 80 MG CAPSULE. PO SCH (17:00)
--- NOTE | 2021-06-04 22:18 | PDOC ---
Exam Note: Bran Note: Please also refer to the separate dictated note~for this date of service dictated separately.~Patient seen individually. Discussed the patient with Nursing staff reviewed the chart.~Reviewed interim history and current functioning. Reviewed vital signs,~Labs/ Radiology~and current medications noted below. Continue current treatment with the changes noted in the dictated addendum note Assessment: Vital Signs/I&O: Vital Signs Date Time Temp Pulse Resp B/P (MAP) Pulse Ox O2 Delivery O2 Flow Rate FiO2 06/04/21 08:13 98 111/61 06/04/21 06:10 97.6 18 94 06/03/21 15:42 Room Air I & O 06/03/21 06/03/21 06/04/21 15:00 23:00 07:00 Intake Total 840 ml 640 ml Balance 840 ml 640 ml Current Medications: Meds: Current Medications Medications (Trade) Dose Ordered Sig/Ashley Route PRN Reason Start Time Stop Time Status Last Admin Dose Admin Acetaminophen (Tylenol) 650 mg PRN Q6HRS PRN PO MILD PAIN / TEMP > 100.3'F 05/19/21 19:45 06/04/21 14:39 DC Multi-Ingredient Ointment (Analgesic [place]) 1 rayo PRN QID PRN TP MUSCLE PAIN 05/19/21 19:45 06/04/21 14:39 DC Al Hydroxide/Mg Hydroxide (Mylanta Plus Xs) 15 ml PRN AFTMEALHC PRN PO DYSPEPSIA 05/19/21 19:45 06/04/21 14:39 DC Magnesium Hydroxide (Milk Of Magnesia) 2,400 mg PRN QHS PRN PO CONSTIPATION 05/19/21 19:45 06/04/21 14:39 DC 05/19/21 23:53 Carbidopa/Levodopa (Sinemet 25/100) 0.5 tab TID PO 05/20/21 21:00 06/04/21 14:39 DC 06/04/21 14:28 Lamotrigine (LaMICtal) 100 mg BID PO 05/20/21 21:00 06/04/21 14:39 DC 06/04/21 08:14 Primidone (Mysoline) 100 mg QHS PO 05/20/21 21:00 05/31/21 17:46 DC 05/30/21 20:21 Non-Formulary Medication (Asenapine Maleate (Saphris)) 10 mg BID SL 05/20/21 21:00 05/25/21 12:51 DC 05/23/21 08:51 Non-Formulary Medication (Lumateperone Tosylate (Caplyta)) 42 mg DAILY PO 05/21/21 09:00 05/25/21 12:51 DC Lurasidone HCl (Latuda) 20 mg DAILYWBKFT PO 05/21/21 08:00 05/22/21 17:21 DC 05/21/21 08:25 Non-Formulary Medication ([propranolol ER] ) 120 mg DAILY PO 05/21/21 09:00 UNV Doxycycline Hyclate (Vibra-Tab) 100 mg BID PO 05/20/21 21:00 05/29/21 09:01 DC 05/29/21 08:43 Propranolol HCl (Inderal La) 120 mg DAILY PO 05/21/21 09:00 06/04/21 14:39 DC 06/04/21 08:13 Lactobacillus Rhamnosus (Culturelle) 1 cap BID PO 05/21/21 09:00 06/04/21 14:39 DC 06/04/21 08:14 Ziprasidone (Geodon) 20 mg BID PO 05/21/21 21:00 05/24/21 16:35 DC 05/24/21 08:52 Vitamin D (Vitamin D3) 50,000 unit WEEKLY PO 05/28/21 09:00 06/04/21 14:39 DC 06/04/21 09:22 Cyanocobalamin (Vitamin B-12) 1,000 mcg Q4WK IM 05/22/21 09:00 06/04/21 14:39 DC 05/22/21 11:01 Ziprasidone (Geodon) 20 mg DAILY PO 05/25/21 09:00 05/26/21 17:51 DC 05/26/21 08:48 Ziprasidone (Geodon) 40 mg 1700 PO 05/24/21 17:00 05/26/21 17:51 DC 05/26/21 17:34 Mirtazapine (Remeron) 7.5 mg QHS PO 05/25/21 21:00 06/04/21 14:39 DC 06/03/21 19:57 Ziprasidone (Geodon) 40 mg 0900,1700 PO 05/27/21 09:00 05/28/21 10:53 DC 05/28/21 08:35 Trazodone HCl (Desyrel) 100 mg QHS PO 05/27/21 22:15 06/04/21 14:39 DC 06/03/21 19:57 Trazodone HCl (Desyrel) 100 mg PRN QHS PRN PO Insomnia 05/27/21 22:15 06/04/21 14:39 DC Ziprasidone (Geodon) 40 mg 0900 PO 05/29/21 09:00 05/31/21 17:51 DC 05/31/21 05:39 Ziprasidone (Geodon) 60 mg 1700 PO 05/28/21 17:00 06/03/21 17:35 DC 06/03/21 17:01 Iohexol (Omnipaque 350 Mg/ml) 100 ml 1X ONCE IV 05/28/21 12:45 05/28/21 12:46 DC Primidone (Mysoline) 150 mg TID PO 06/01/21 09:00 05/31/21 19:39 DC Fluvoxamine Maleate (Luvox) 25 mg DAILY PO 06/01/21 09:00 06/03/21 17:35 DC 06/03/21 08:17 Ziprasidone (Geodon) 60 mg 0900 PO 06/01/21 09:00 06/04/21 14:39 DC 06/04/21 08:14 Primidone (Mysoline) 150 mg TID PO 06/01/21 21:00 05/31/21 20:01 DC Primidone (Mysoline) 150 mg TID PO 05/31/21 21:00 06/04/21 14:39 DC 06/04/21 14:28 Ziprasidone (Geodon) 80 mg 1700 PO 06/04/21 17:00 06/04/21 14:39 DC Fluvoxamine Maleate (Luvox) 50 mg DAILY PO 06/04/21 09:00 06/04/21 14:39 DC 06/04/21 09:23 Current Medications Medications (Trade) Dose Ordered Sig/Ashley Route PRN Reason Start Time Stop Time Status Last Admin Dose Admin Fluvoxamine Maleate (Luvox) 50 mg DAILY PO 7/29/21 09:00 06/04/21 14:39 DC 06/04/21 09:23 I have reviewed the current psychotropics carefully including drug interactions. Risk benefit ratio favors no change other than as noted in my dictated progress note. Diagnosis: Problems: (1) Anxiety disorder, unspecified (2) Major depressive disorder with psychotic features (3) Bipolar disorder, current episode mixed, severe, with psychotic features (4) Psychotic disorder (5) Parkinson's disease (6) COVID-19 MYNOR FABIAN MD Jun 04, 2021 22:18
--- NOTE | 2021-06-05 06:26 | PDOC ---
Exam Note: Bran Note: This note is a late entry for 06/03/2021 covers elements not covered in my initial note. Subjective: The patient was seen individually in the evening of 06/03/2021 with Hina NAVARRO, discussed and reviewed the chart. The patient slept 7-3/4 hours previous night. She continues to have some auditory hallucinations and denies suicidal ideation though she states the voices tell her to hurt herself. QTc is 430 milliseconds unremarkable and will increase Geodon from 60 mg b.i.d. to 60 mg a.m. and 80 mg p.m. and check EKG in 3 days. She remains somewhat obsessive. We will increase Luvox from 25 mg daily to 50 mg daily. Review of Systems: Positive for parkinsonian tremors. No CV, , pulmonary, eye, ENT system symptoms on review. Mental Status Exam: The patient is reasonably oriented. Speech is coherent has some latency. Abstraction fair. Computation impaired. Language function intact. Mood and affect somewhat withdrawn. Laboratory Data: Reviewed. Impression: Major depressive disorder with psychotic features. Bipolar disorder, mixed with psychotic features. Anxiety disorder unspecified. Parkinsons disease. Psychotic disorder unspecified. Plan: Continue current psychotropics unchanged. Adjust the Luvox and Geodon as described. Assessment: Vital Signs/I&O: Vital Signs Date Time Temp Pulse Resp B/P (MAP) Pulse Ox O2 Delivery O2 Flow Rate FiO2 06/04/21 08:13 98 111/61 06/04/21 06:10 97.6 18 94 06/03/21 15:42 Room Air I & O 06/04/21 06/04/21 06/05/21 15:00 23:00 07:00 Intake Total 560 ml Balance 560 ml Current Medications: Meds: Current Medications Medications (Trade) Dose Ordered Sig/Ashley Route PRN Reason Start Time Stop Time Status Last Admin Dose Admin Acetaminophen (Tylenol) 650 mg PRN Q6HRS PRN PO MILD PAIN / TEMP > 100.3'F 05/19/21 19:45 06/04/21 14:39 DC Multi-Ingredient Ointment (Analgesic [place]) 1 rayo PRN QID PRN TP MUSCLE PAIN 05/19/21 19:45 06/04/21 14:39 DC Al Hydroxide/Mg Hydroxide (Mylanta Plus Xs) 15 ml PRN AFTMEALHC PRN PO DYSPEPSIA 7/13/21 19:45 06/04/21 14:39 DC Magnesium Hydroxide (Milk Of Magnesia) 2,400 mg PRN QHS PRN PO CONSTIPATION 05/19/21 19:45 06/04/21 14:39 DC 05/19/21 23:53 Carbidopa/Levodopa (Sinemet 25/100) 0.5 tab TID PO 05/20/21 21:00 06/04/21 14:39 DC 06/04/21 14:28 Lamotrigine (LaMICtal) 100 mg BID PO 05/20/21 21:00 06/04/21 14:39 DC 06/04/21 08:14 Primidone (Mysoline) 100 mg QHS PO 05/20/21 21:00 05/31/21 17:46 DC 05/30/21 20:21 Non-Formulary Medication (Asenapine Maleate (Saphris)) 10 mg BID SL 05/20/21 21:00 05/25/21 12:51 DC 05/23/21 08:51 Non-Formulary Medication (Lumateperone Tosylate (Caplyta)) 42 mg DAILY PO 05/21/21 09:00 05/25/21 12:51 DC Lurasidone HCl (Latuda) 20 mg DAILYWBKFT PO 05/21/21 08:00 05/22/21 17:21 DC 05/21/21 08:25 Non-Formulary Medication ([propranolol ER] ) 120 mg DAILY PO 05/21/21 09:00 UNV Doxycycline Hyclate (Vibra-Tab) 100 mg BID PO 05/20/21 21:00 05/29/21 09:01 DC 05/29/21 08:43 Propranolol HCl (Inderal La) 120 mg DAILY PO 05/21/21 09:00 06/04/21 14:39 DC 06/04/21 08:13 Lactobacillus Rhamnosus (Culturelle) 1 cap BID PO 05/21/21 09:00 06/04/21 14:39 DC 06/04/21 08:14 Ziprasidone (Geodon) 20 mg BID PO 05/21/21 21:00 05/24/21 16:35 DC 05/24/21 08:52 Vitamin D (Vitamin D3) 50,000 unit WEEKLY PO 05/28/21 09:00 06/04/21 14:39 DC 06/04/21 09:22 Cyanocobalamin (Vitamin B-12) 1,000 mcg Q4WK IM 05/22/21 09:00 06/04/21 14:39 DC 05/22/21 11:01 Ziprasidone (Geodon) 20 mg DAILY PO 05/25/21 09:00 05/26/21 17:51 DC 05/26/21 08:48 Ziprasidone (Geodon) 40 mg 1700 PO 05/24/21 17:00 05/26/21 17:51 DC 05/26/21 17:34 Mirtazapine (Remeron) 7.5 mg QHS PO 05/25/21 21:00 06/04/21 14:39 DC 06/03/21 19:57 Ziprasidone (Geodon) 40 mg 0900,1700 PO 05/27/21 09:00 05/28/21 10:53 DC 05/28/21 08:35 Trazodone HCl (Desyrel) 100 mg QHS PO 05/27/21 22:15 06/04/21 14:39 DC 06/03/21 19:57 Trazodone HCl (Desyrel) 100 mg PRN QHS PRN PO Insomnia 05/27/21 22:15 06/04/21 14:39 DC Ziprasidone (Geodon) 40 mg 0900 PO 05/29/21 09:00 05/31/21 17:51 DC 05/31/21 05:39 Ziprasidone (Geodon) 60 mg 1700 PO 05/28/21 17:00 06/03/21 17:35 DC 06/03/21 17:01 Iohexol (Omnipaque 350 Mg/ml) 100 ml 1X ONCE IV 05/28/21 12:45 05/28/21 12:46 DC Primidone (Mysoline) 150 mg TID PO 06/01/21 09:00 05/31/21 19:39 DC Fluvoxamine Maleate (Luvox) 25 mg DAILY PO 06/01/21 09:00 06/03/21 17:35 DC 06/03/21 08:17 Ziprasidone (Geodon) 60 mg 0900 PO 06/01/21 09:00 06/04/21 14:39 DC 06/04/21 08:14 Primidone (Mysoline) 150 mg TID PO 06/01/21 21:00 05/31/21 20:01 DC Primidone (Mysoline) 150 mg TID PO 05/31/21 21:00 06/04/21 14:39 DC 06/04/21 14:28 Ziprasidone (Geodon) 80 mg 1700 PO 06/04/21 17:00 06/04/21 14:39 DC Fluvoxamine Maleate (Luvox) 50 mg DAILY PO 06/04/21 09:00 06/04/21 14:39 DC 06/04/21 09:23 Current Medications Medications (Trade) Dose Ordered Sig/Ashley Route PRN Reason Start Time Stop Time Status Last Admin Dose Admin Fluvoxamine Maleate (Luvox) 50 mg DAILY PO 06/04/21 09:00 06/04/21 14:39 DC 06/04/21 09:23 I have reviewed the current psychotropics carefully including drug interactions. Risk benefit ratio favors no change other than as noted in my dictated progress note. Diagnosis: Problems: (1) Anxiety disorder, unspecified (2) Major depressive disorder with psychotic features (3) Bipolar disorder, current episode mixed, severe, with psychotic features (4) Psychotic disorder (5) Parkinson's disease (6) COVID-19 MYNOR FABIAN MD Jun 05, 2021 06:26
--- NOTE | 2021-06-06 04:43 | DS ---
DATE OF DISCHARGE: 06/05/2021 DISCHARGE SUMMARY/PSYCHIATRIC PROGRESS NOTE This late entry 06/04 covers elements not covered in my initial note, 06/04. REASON FOR ADMISSION: Please refer to the admission history for details. Briefly, the patient is a 60-year-old female, referred from [facility] where she presented from home on account of suicide attempt by overdose. This was within the context of her active hallucinations, hearing voices telling her to hurt herself and a diagnosis of schizoaffective disorder, bipolar type versus major depressive disorder with psychotic features. She failed outpatient psychiatric interventions. SIGNIFICANT FINDINGS AND CLINICAL COURSE: Following admission, the patient seen daily individually by myself from a psychiatric standpoint, medical followup, Dr. Concepcion/Dr. Bajwa. The patient continued to have active auditory hallucinations with voices telling her to hurt herself or at times her roommate. She currently ____ given to the voices. Adjustments were made in her psychotropics and Geodon had been increased to 60 mg in the morning, 80 mg in the evening. She was on Lamictal 100 mg b.i.d., Sinemet for her parkinsonian symptoms, primidone 150 mg t.i.d., Remeron 7.5 mg at bedtime. Luvox was adjusted to 50 mg daily since it was felt her OCD symptoms and obsessive rumination seemed to make the perception of the auditory hallucinations even worse. She was being stabilized psychiatrically, but at this stage she tested positive for COVID-19 and was transferred to an isolation unit on the senior care care. We may consider having her back with us to continue further psychiatric stabilization when she is medically stable. Prior to discharge on 06/04 no CV, , pulmonary, eye, ENT system symptoms on review. Still admitted to hearing voices. MENTAL STATUS EXAMINATION: The patient is reasonably oriented. Speech coherent, has some latency. Abstraction fair. Computation impaired. Language function intact. Mood and affect withdrawn. The patient is also staffed at treatment team meeting with entire team on 06/[address] Kaiser joined in on this together with JASWINDER nursing staff and Rani Cruz, vp digital marketing social media and crm along with Alexei in activity therapy. No active suicidal or homicidal ideation at discharge. CONDITION AT DISCHARGE: She was still having auditory hallucinations, but slightly better. FINAL DIAGNOSES: Schizoaffective disorder, bipolar type, mixed with psychotic features versus major depressive disorder with psychotic features, psychotic disorder, unspecified; anxiety disorder, unspecified. Rest unchanged from admission. DISCHARGE MEDICATIONS: Please refer to the MRAD. Psychiatric and medical follow up on the medical surgical floor and she will return back to our unit when she is medically stable. OBED DR: Karie TID: [id number]
== END 2021-06-04 14:39 | disposition short-term general hospital (02) | DRG 885 ==
LOC: GEROPSY 19:15
PROVIDERS: ADMIT Psychiatry & Neurology Psychiatry; ATTEND Psychiatry & Neurology Psychiatry
DX: F25.0 Schizoaffective disorder, bipolar type (principal); U07.1 COVID-19; E53.8 Deficiency of other specified B group vitamins; E55.9 Vitamin D deficiency, unspecified; E78.5 Hyperlipidemia, unspecified; F41.9 Anxiety disorder, unspecified; F42.9 Obsessive-compulsive disorder, unspecified; G20 Parkinson's disease; G25.0 Essential tremor; G47.00 Insomnia, unspecified; K21.9 Gastro-esophageal reflux disease without esophagitis; T50.902A Poisoning by unspecified drugs, medicaments and biological substances, intentional self-harm, initial encounter; Z78.9 Other specified health status; Z79.899 Other long term (current) drug therapy; Z87.440 Personal history of urinary (tract) infections; Z91.5 Personal history of self-harm; Y92.89 Other specified places as the place of occurrence of the external cause
CPT/HCPCS: 36415; 70450; 80053; 80061; 81001; 82306; 82607; 83036; 83540; 83550; 83735; 84436; 84443; 84480; 85025; 85379; 86592; 87077; 87086; 87186; 93005; J3420; U0003; U0005; 97530

== ENCOUNTER 2021-06-04 14:10 | Inpatient (IN) | payer BC ==
[~2021-06-04] VITALS: Ht 162.6 cm; Wt 86.6 kg
[2021-06-04 14:00] VITALS: BP 114/66
[~2021-06-04 14:10] MED LIST: ACET325T21 PO; ASEN10TA9 SL; CARB1TAB22 PO; CHOL500021 PO; CYAN10002 IJ; DOXY100C3 PO; FLUV50TA2 PO; LACT1CAP19 PO; LAMO100T8 PO; LUMA42CA PO; LURA20TA PO; MAG355OR17 PO; MAGN24003 PO; METH57CR17 TP; MIRT-37 PO; PRIM50TA24 PO; PROPRANOLOL PO; TRAZ-125 PO; ZIPR20CA2 PO; ZIPR40CA2 PO
[2021-06-04] MEDS ORDERED: traZODone 100 MG TABLET. PO PRN (16:15)
[2021-06-04] MEDS ORDERED: ACETAMINOPHEN 325 MG TABLET PO PRN (16:15)
--- NOTE | 2021-06-04 16:33 | NUR ---
Nursing Note Consult Consult to Dr. Reese faxed and ordered. For SI attempt with overdose
--- NOTE | 2021-06-04 16:36 | NUR ---
Nursing Note Admission Pt accompanied down to unit from [facility] with [facility] staff member. Pt escorted into room and on isolation d/t testing positive for COVID. Pt in stable condition.
[2021-06-04] MEDS ORDERED: METHYL SALICYLATE/MENTHOL TOPICAL OINTMENT 57GM TUBE. TP PRN (17:00)
[2021-06-04] MEDS ORDERED: MAGNESIUM HYDROXIDE 2,400 MG/30 ML ORAL.SUSP. PO PRN (17:45)
[2021-06-04] MEDS ORDERED: MAG HYDROX/AL HYDROX/SIMETH 30 ML ORAL.SUSP PO PRN (17:45)
[2021-06-04] MEDS: ZIPRASIDONE 80 MG CAPSULE. PO SCH (18:00)
--- NOTE | 2021-06-04 18:02 | HP ---
ADMIT DATE: 06/04/2021 HISTORY OF PRESENT ILLNESS: The patient is a 60-year-old female patient who was transferred from [facility] on account of being positive for coronavirus. She herself denied any complaint. In particular, denied any chest pain, shortness of breath, cough, phlegm or hemoptysis. Denied any chills, rigors or fever. PAST MEDICAL HISTORY: Significant for drug-induced Parkinson's disease, hyperlipidemia, benign essential familial tremors and has frequent recurrent UTIs. PAST SURGICAL HISTORY: Significant for 4 C-sections and tonsillectomy. The patient was admitted from the [facility] after she presented there on account of auditory hallucinations including command hallucinations to harm herself. Reportedly, the patient has endorsed overdose of education in a suicidal attempt. She has been depressed. She has recently lost her spouse and wanted to be with him. She was having marked insomnia and had failed outpatient psychiatric stabilization at the [facility] in [place]. She was referred to [facility], but was declined by them on account of her need for assistance with activities of daily living support. She was actually admitted to [facility] on 05/19/2021. FAMILY HISTORY: Noncontributory. SOCIAL HISTORY: She is . Her recently. She has 2 daughters and 2 sons. She does not smoke, drink alcohol, use any recreational drugs. 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 ALLERGIES: She has no known drug allergies. MEDICATIONS: She is currently on the following medications: She is on cyanocobalamin 1000 mcg subQ once a week, vitamin D 50,000 units weekly. She is on propranolol 120 mg daily, fluvoxamine 50 mg once a day, ziprasidone 80 mg daily, ziprasidone 60 mg daily, trazodone 100 mg at bedtime, primidone 150 mg 3 times a day, mirtazapine 7.5 mg at bedtime, lamotrigine 100 mg twice a day, carbidopa/levodopa 25/100. She takes half a tablet 3 times a day, analgesic balm applied 4 times a day. She is on Mylanta 15 mL after meals and bedtime, trazodone 100 mg at bedtime, acetaminophen 650 mg every 4 hours. PHYSICAL EXAMINATION: GENERAL: When I examined her, she was resting slightly propped up in bed, in no apparent respiratory distress. She was slightly pale, but no jaundice, cyanosis, no lymphadenopathy, no thyromegaly, no jugular venous distention. No limb edema. VITAL SIGNS: Her heart rate was 63, blood pressure was 100/60, temperature was 97, respiratory rate was 18 and oxygen saturation was 94% on room air. HEAD, EYES, EARS, NOSE, AND THROAT: Normocephalic, atraumatic. NECK: Supple. HEART: Showed normal first and second heart sounds, no gallop, rub or murmur. CHEST: Clear to auscultation, no crepitation or rhonchi. ABDOMEN: Distended, soft, nontender. NEUROLOGIC: She was awake, alert, responding appropriately. All cranial nerves intact. She moves all extremities without difficulty LABORATORY DATA: As of yesterday, her white cell count was 6300, hemoglobin 10, hematocrit 31, MCV 94, and a platelet count of 188,000. Her D-dimer was 0.94. Her chemistry showed a serum sodium of 140, potassium 4.3, chloride 104, bicarbonate 30, anion gap of 6, BUN 19, creatinine 1.1. Estimated GFR was 50 mL per minute. Her glucose was 82, calcium was 7.8. Total bilirubin, AST, ALT, alkaline phosphatase were normal. Total protein was 5.6, albumin was 2.6. ASSESSMENT: 1. Asymptomatic COVID-19 infection. Other medical problems include essential benign familial tremors. 2. Parkinson's disease. 3. Hyperlipidemia. 4. Frequent falls. 5. Recurrent urinary tract infections. PLAN: We will continue with all her medications. We will follow her closely and decide on further management accordingly. KATHRYN DR: Ifeanyi TID: [id number]
[2021-06-04] MEDS: CARBIDOPA/LEVODOPA 25/100MG TABLET PO SCH (20:49)
[2021-06-04] MEDS: LACTOBACILLUS RHAMNOSUS GG 1 CAPSULE. PO SCH (20:49)
[2021-06-04] MEDS: lamoTRIgine 100 MG TABLET. PO SCH (20:50)
[2021-06-04] MEDS: traZODone 100 MG TABLET. PO SCH (20:50)
[2021-06-04] MEDS: PRIMIDONE 50 MG TABLET PO SCH (20:50)
[2021-06-04] MEDS: MIRTAZAPINE 7.5 MG TABLET. PO SCH (20:50)
[2021-06-05] MEDS: PRIMIDONE 50 MG TABLET PO SCH ×3 (07:50→21:35)
[2021-06-05] MEDS: LACTOBACILLUS RHAMNOSUS GG 1 CAPSULE. PO SCH ×2 (07:52→21:31)
[2021-06-05] MEDS: CARBIDOPA/LEVODOPA 25/100MG TABLET PO SCH ×3 (07:52→21:31)
[2021-06-05] MEDS: lamoTRIgine 100 MG TABLET. PO SCH ×2 (07:52→21:32)
[2021-06-05 08:00] VITALS: BP 124/78
[2021-06-05] MEDS: PROPRANOLOL ER 60 MG CAP.SA.24H. PO SCH (08:07)
[2021-06-05] MEDS ORDERED: ZIPRASIDONE 60 MG CAPSULE. PO SCH (09:00)
--- NOTE | 2021-06-05 15:17 | NUR ---
nsg note; pt woke for breakfast and took her am meds whole without difficulty. I encouraged her to get out of bed and up in the chair but she has chosen to stay in bed today watching TV, napping and talking to family members on the phone. she has heard the "good voices" and denies the bad voices. she states the TV makes it easier to not listen to the voices
[2021-06-05] MEDS: ZIPRASIDONE 80 MG CAPSULE. PO SCH (17:00)
[2021-06-05 19:00] VITALS: BP 99/47
[2021-06-05] MEDS: traZODone 100 MG TABLET. PO SCH (21:31)
[2021-06-05] MEDS: MIRTAZAPINE 7.5 MG TABLET. PO SCH (21:31)
[2021-06-05 21:54] VITALS: BP 130/74
[2021-06-06 07:00] VITALS: BP 130/70
[2021-06-06] MEDS: LACTOBACILLUS RHAMNOSUS GG 1 CAPSULE. PO SCH ×2 (09:23→20:13)
[2021-06-06] MEDS: ZIPRASIDONE 80 MG CAPSULE. PO SCH ×2 (09:24→17:25)
[2021-06-06] MEDS: CARBIDOPA/LEVODOPA 25/100MG TABLET PO SCH ×3 (09:24→20:13)
[2021-06-06] MEDS: lamoTRIgine 100 MG TABLET. PO SCH ×2 (09:24→20:13)
[2021-06-06] MEDS: PRIMIDONE 50 MG TABLET PO SCH ×3 (09:25→20:13)
[2021-06-06] MEDS: PROPRANOLOL ER 60 MG CAP.SA.24H. PO SCH (09:25)
--- NOTE | 2021-06-06 12:06 | PN ---
DATE: 06/05/2021 SUBJECTIVE: The patient is resting slightly propped up in bed, in no apparent distress. On questioning her, she denied any complaint. The nursing staff did not voice any concerns, that she had an uneventful night. OBJECTIVE: GENERAL: On examining her, she looked well and was clearly in no apparent distress. VITAL SIGNS: Stable. : Stable. LABORATORY DATA: Her lab work showed that she has normochromic normocytic anemia and her chemistry was unremarkable. Her D-dimer was 0.94. ASSESSMENT: 1. Asymptomatic COVID-19. 2. Other medical problems include: A. Parkinson's disease. B. Hyperlipidemia. C. Frequent falls. D. Frequent urinary tract infection. CHENG/RANDELL/RYDER DR: CHENG/aishwarya TID: [id number]
[2021-06-06 18:37] VITALS: BP 108/62
[2021-06-06] MEDS: MIRTAZAPINE 7.5 MG TABLET. PO SCH (20:13)
[2021-06-06] MEDS: traZODone 100 MG TABLET. PO SCH (20:14)
--- NOTE | 2021-06-06 22:52 | PN ---
DATE: 06/06/2021 SUBJECTIVE: The patient is resting, slightly propped up in bed, in no apparent respiratory distress. She is sleepy, but arousable. On questioning her, denies any complaint. The nursing staff did not voice any concern, stated that she has an uneventful night. PHYSICAL EXAMINATION: GENERAL: When I examined her, she looked well and was clearly in no apparent respiratory distress. She was pale, but not jaundiced, cyanosed. No lymphadenopathy, no thyromegaly, no jugular venous distention. No lower limb edema. VITAL SIGNS: Her heart rate was 67, blood pressure was 130/70, temperature was 98.2, respiratory rate was 18, and oxygen saturation was 96% on room air. The rest of exam stable. LABORATORY DATA: No lab works were ordered for today. ASSESSMENT: 1. Asymptomatic COVID-19 infection. 2. Other medical problems include: A. Essential benign familial tremors. B. Parkinson disease. C. Hyperlipidemia. D. Frequent falls. E. Recurrent urinary tract infection. PLAN: To continue with all her current medication including psychotropic medication. I did order some labs for tomorrow. KOLBY DR: Ifeanyi TID: [id number]
[2021-06-07 06:00] VITALS: BP 134/69
[2021-06-07 07:06] LABS: HEMATOCRIT 33.8 % (36.0-47.0); HEMOGLOBIN 11.4 g/dL (12.0-15.5); RED BLOOD COUNT 3.61 x10^6/uL (3.50-5.40); RED CELL DISTRIBUTION WIDTH 13.3 % (11.5-14.5); WHITE BLOOD COUNT 5.6 x10^3/uL (4.0-11.0)
[2021-06-07 07:29] LABS: ALBUMIN 2.8 g/dL (3.4-5.0); ALBUMIN/GLOBULIN RATIO 0.9 (1.0-1.7); C REACTIVE PROTEIN 18.3 mg/L (0-3.3); CALCIUM 8.2 mg/dL (8.5-10.1); CREATININE 0.9 mg/dL (0.6-1.0); GFR 63.9; POTASSIUM 4.1 mmol/L (3.5-5.1); TOTAL BILIRUBIN 0.3 mg/dL (0.2-1.0)
[2021-06-07] MEDS: CARBIDOPA/LEVODOPA 25/100MG TABLET PO SCH ×3 (08:14→20:00)
[2021-06-07] MEDS: lamoTRIgine 100 MG TABLET. PO SCH ×2 (08:14→20:00)
[2021-06-07] MEDS: LACTOBACILLUS RHAMNOSUS GG 1 CAPSULE. PO SCH ×2 (08:14→20:01)
[2021-06-07] MEDS: PRIMIDONE 50 MG TABLET PO SCH ×3 (08:15→21:20)
[2021-06-07] MEDS: PROPRANOLOL ER 60 MG CAP.SA.24H. PO SCH (08:17)
[2021-06-07] MEDS: ZIPRASIDONE 80 MG CAPSULE. PO SCH ×2 (08:17→17:10)
[2021-06-07 19:17] VITALS: BP 96/60
[2021-06-07] MEDS: MIRTAZAPINE 7.5 MG TABLET. PO SCH (20:00)
[2021-06-07] MEDS: traZODone 100 MG TABLET. PO SCH (20:00)
--- NOTE | 2021-06-07 23:33 | PN ---
DATE: 06/07/2021 SUBJECTIVE: The patient is also sitting on the edge of the bed, eating her supper comfortably, in no apparent distress. She does have prominent tremors; however, she is able to feed herself despite that. She continued to be asymptomatic with no shortness of breath. No fever, chills, or rigors. No headache. PHYSICAL EXAMINATION GENERAL: When I examined her, she looked well and was clearly in no apparent respiratory distress. She was pale, but no jaundice, cyanosis, no lymphadenopathy, no thyromegaly, no jugular venous distention. No lower limb edema. VITAL SIGNS: Her heart rate was 61, blood pressure is 134/69, temperature was 97.7, respiratory rate was 18 and oxygen saturation was 94%. HEAD, EYES, EARS, NOSE, AND THROAT: Normocephalic, atraumatic. NECK: Supple. HEART: Normal first and second heart sounds, no gallop or murmur. CHEST: Clear to auscultation. No crepitation or rhonchi. ABDOMEN: Distended, soft, nontender. NEUROLOGIC: She was grossly intact with prominent essential benign tremors. INTAKE AND OUTPUT: Her intake was 1120. No output was recorded. LABORATORY DATA: Showed a serum sodium 138, potassium 4.1, chloride 102, bicarbonate 31, anion gap of 5, BUN 21, creatinine 0.9. Estimated GFR was 64 mL per minute. Her glucose was 81, calcium was 8.2. Total bilirubin, AST, ALT, alkaline phosphatase were normal. Total protein 6, albumin 2.8. C-reactive protein was 18 mg per liter. D-dimer was 0.55 mg per liter. Her white cell count was 5600, hemoglobin 11.4, hematocrit 33.8, MCV 94, and platelet count 209,000. ASSESSMENT: 1. Asymptomatic COVID-19 infection. 2. Other medical problems include: A. Essential benign familial tremors. B. Parkinson disease. C. Hyperlipidemia. D. Frequent falls. E. Recurrent urinary tract infection. PLAN: To continue all her medications. JESSICA DR: Ifeanyi TID: [id number]
[2021-06-08 06:41] VITALS: BP 132/73
--- NOTE | 2021-06-08 06:52 | NUR ---
Nursing Note The patient was calm and compliant this shift. The patient is very independent with self cares. The patient took her medication whole. The patient was alert and oriented x4. The patient reported command hallucinations prior to this shift that told her to harm herself via strangulation. The patient reports that she does not want to harm her self. The patient is currently awake in her room.
[2021-06-08] MEDS: ZIPRASIDONE 80 MG CAPSULE. PO SCH ×2 (08:16→17:06)
[2021-06-08] MEDS: lamoTRIgine 100 MG TABLET. PO SCH ×2 (08:17→20:52)
[2021-06-08] MEDS: PROPRANOLOL ER 60 MG CAP.SA.24H. PO SCH (08:17)
[2021-06-08] MEDS: CARBIDOPA/LEVODOPA 25/100MG TABLET PO SCH ×3 (08:17→20:52)
[2021-06-08] MEDS: LACTOBACILLUS RHAMNOSUS GG 1 CAPSULE. PO SCH ×2 (08:18→20:51)
[2021-06-08] MEDS: PRIMIDONE 50 MG TABLET PO SCH ×3 (08:19→20:52)
--- NOTE | 2021-06-08 18:00 | NUR ---
NURSING NOTE REPORT FROM RAMON ROSADO. NO BEHAVIORS NOTED THUS FAR. ALKA NAVARRO.
[2021-06-08 19:00] VITALS: BP 117/69
[2021-06-08] MEDS: traZODone 100 MG TABLET. PO SCH (20:51)
[2021-06-08] MEDS: MIRTAZAPINE 7.5 MG TABLET. PO SCH (20:51)
--- NOTE | 2021-06-09 01:23 | PN ---
DATE: 06/08/2021 SUBJECTIVE: The patient is resting, slightly propped up in bed, in no apparent respiratory distress. She is awake, alert. On questioning her, denied any complaint. The nursing staff did not voice any concerns. OBJECTIVE: GENERAL: On examining her, she was pale, but no jaundice, cyanosis, no lymphadenopathy, no thyromegaly, no jugular venous distention. No lower limb edema. VITAL SIGNS: Her heart rate was 64, blood pressure is 132/73, temperature 98.9, respiratory rate was 18 and oxygen saturation was 97% on room air. HEAD, EYES, EARS, NOSE, AND THROAT: Normocephalic, atraumatic. NECK: Supple. HEART: Showed normal first and second heart sounds, no gallop, rub or murmur. CHEST: Clear to auscultation, no crepitation or rhonchi. ABDOMEN: Distended, soft, nontender. NEUROLOGIC: She was grossly intact. She had prominent essential familial tremors. Her intake was 1080, no output was recorded. LABORATORY DATA: As of yesterday showed a white cell count 5600, hemoglobin 11, hematocrit 33, MCV 94 and platelet 109,000. Her chemistry was also unremarkable and her D-dimer was 0.55. ASSESSMENT: 1. Asymptomatic COVID-19 infection. 2. Other medical problems include, A. Essential benign familial tremors. B. Parkinson's disease. C. Hyperlipidemia. D. Frequent falls. E. Recurrent urinary tract infection. PLAN: To continue with all her current medication. SUZANNA DR: Ifeanyi TID: [id number]
[2021-06-09 06:30] VITALS: BP 127/62
[2021-06-09] MEDS: lamoTRIgine 100 MG TABLET. PO SCH ×2 (08:05→21:00)
[2021-06-09] MEDS: CARBIDOPA/LEVODOPA 25/100MG TABLET PO SCH ×3 (08:06→21:00)
[2021-06-09] MEDS: LACTOBACILLUS RHAMNOSUS GG 1 CAPSULE. PO SCH ×2 (08:08→21:00)
[2021-06-09] MEDS: ZIPRASIDONE 80 MG CAPSULE. PO SCH ×2 (08:08→17:00)
[2021-06-09] MEDS: PROPRANOLOL ER 60 MG CAP.SA.24H. PO SCH (08:08)
[2021-06-09] MEDS: PRIMIDONE 50 MG TABLET PO SCH ×3 (08:09→21:00)
--- NOTE | 2021-06-09 16:52 | NUR ---
SHIFT NOTE Pt resting comfortably throughout shift. Pt completing own ADLs throughout day as well. Pt occupied with coloring and word searches. Will continue to monitor. CC, RN
[2021-06-09 18:16] VITALS: BP 91/41
[2021-06-09 19:47] VITALS: BP 89/44
[2021-06-09] MEDS ORDERED: IV NORMAL SALINE 1,000ML 1,000 ML IV ONE (20:00)
[2021-06-09] MEDS: traZODone 100 MG TABLET. PO SCH (21:00)
[2021-06-09] MEDS: MIRTAZAPINE 7.5 MG TABLET. PO SCH (21:00)
[2021-06-09 21:20] VITALS: BP 98/54
--- NOTE | 2021-06-09 21:21 | NUR ---
PT noted to be hypotensive on shift assessment and sepsis screen upon review of vital signs. Vital signs reobtained after initial sepsis screen. PT still hypotensive. IV placed. Bolus ordered. PT reassessed and WNL. Bolus still running. HS meds held.
--- NOTE | 2021-06-10 00:37 | PN ---
DATE: 06/09/2021 SUBJECTIVE: The patient is sitting slightly propped up in bed, in no apparent distress. On questioning her, she denied any complaint. The nursing staff did not voice concerns and that she had an uneventful night. She continues to be asymptomatic. PHYSICAL EXAMINATION: GENERAL: When I examined her, she was pale. No jaundice, cyanosis or thyromegaly. No jugular venous distention. No limb edema. VITAL SIGNS: Her heart rate was 66, blood pressure is 127/62, temperature was 98.9, respiratory rate was 16 and oxygen saturation was 96% on room air. HEAD, EYES, EARS, NOSE AND THROAT: Normocephalic, atraumatic. NECK: Supple. HEART: Showed normal first and second heart sounds, no gallop or murmur. CHEST: Showed central trachea, equal bilateral expansion air entry, vesicular breath sounds. No crepitation or rhonchi. ABDOMEN: Slightly distended, soft, nontender. NEUROLOGIC: She is grossly intact. LABORATORY DATA: Stable. ASSESSMENT: 1. Asymptomatic COVID-19 infection. 2. Other medical problems include, a. Essential benign familial tremors. b. Parkinson disease. c. Hyperlipidemia. d. Frequent falls. e. Recurrent urinary tract infection. PLAN: To continue with current plan and management. CLINT DR: Ifeanyi TID: [id number]
[2021-06-10 06:11] VITALS: BP 107/66
[2021-06-10] MEDS: CARBIDOPA/LEVODOPA 25/100MG TABLET PO SCH ×3 (07:24→19:04)
[2021-06-10] MEDS: LACTOBACILLUS RHAMNOSUS GG 1 CAPSULE. PO SCH ×2 (07:24→19:04)
[2021-06-10] MEDS: PRIMIDONE 50 MG TABLET PO SCH ×3 (07:25→19:06)
[2021-06-10] MEDS: lamoTRIgine 100 MG TABLET. PO SCH ×2 (07:25→19:04)
[2021-06-10] MEDS: PROPRANOLOL ER 60 MG CAP.SA.24H. PO SCH (07:26)
[2021-06-10] MEDS: ZIPRASIDONE 80 MG CAPSULE. PO SCH ×2 (07:26→16:45)
[2021-06-10 11:45] VITALS: BP 103/61
--- NOTE | 2021-06-10 17:18 | NUR ---
Pt told this nurse that she " hears the devil talking to her" when asked what he is saying pt states " he told me he wants my soul" and " to hang myself with my cords" pt asked follow up questions and stated that she does not plan to listen to the voices and knows she should not use cords to hang herself. cords removed from room as precaution. dr smith informed.
[2021-06-10 18:18] VITALS: BP 120/80
[2021-06-10] MEDS: MIRTAZAPINE 7.5 MG TABLET. PO SCH (19:04)
[2021-06-10] MEDS: traZODone 100 MG TABLET. PO SCH (19:04)
--- NOTE | 2021-06-10 22:30 | PN ---
DATE: 06/10/2021 ATTENDING PHYSICIAN: Alber Concepcion MD. SUBJECTIVE: No complaints. She had a slightly low blood pressure, but she is not symptomatic. We had stopped her propranolol. OBJECTIVE FINDINGS: VITAL SIGNS: Blood pressure today was 107/66, pulse is 63 and regular, temperature 97.5 degrees Fahrenheit, and her oxygen saturation are 95% on room air. HEENT: Head is without trauma. Pupils are reactive. Sclerae nonicteric. Oropharynx is clear. There is no stridor. LUNGS: Entirely clear. CARDIOVASCULAR: Showed regular heart tones. No gallops. ABDOMEN: Soft. No guarding or rebound tenderness. EXTREMITIES: Without edema. NEUROLOGIC FINDINGS: Focally intact. Speech is fluent. She has essential tremor. She is slightly confused. ASSESSMENT: 1. A 60-year-old female from [facility]. She tested positive for COVID-19 coronavirus, but she has no symptoms at this time. 2. Benign tremors. 3. Parkinson's disease. 4. Hyperlipidemia. 5. Frequent falls. 6. Recurrent urinary tract infections. 7. Hypotension due to the addition of beta blockade. PLAN: 1. We will stop her propranolol together. 2. Diet as tolerated. 3. She remains asymptomatic. She will [facility] after 10 days of quarantine on the medical floor. BILL DR: BILL/aishwarya TID: [id number] CC: MYNOR FABIAN MD
[2021-06-11 06:43] VITALS: BP 139/50
[2021-06-11] MEDS: LACTOBACILLUS RHAMNOSUS GG 1 CAPSULE. PO SCH ×2 (07:50→20:14)
[2021-06-11] MEDS: ZIPRASIDONE 80 MG CAPSULE. PO SCH ×2 (07:50→16:50)
[2021-06-11] MEDS: ARIPiprazole 5 MG TABLET PO SCH (07:50)
[2021-06-11] MEDS: PRIMIDONE 50 MG TABLET PO SCH ×3 (07:50→20:17)
[2021-06-11] MEDS: CARBIDOPA/LEVODOPA 25/100MG TABLET PO SCH ×3 (07:50→20:15)
[2021-06-11] MEDS: lamoTRIgine 100 MG TABLET. PO SCH ×2 (07:51→20:15)
[2021-06-11] MEDS ORDERED: CHOLECALCIFEROL (VITAMIN D3) 50,000 UNIT CAPSULE PO SCH (09:00)
[2021-06-11] MEDS ORDERED: CYANOCOBALAMIN (VITAMIN B-12) 1,000 MCG/ML VIAL. SQ SCH (09:00)
--- NOTE | 2021-06-11 17:36 | NUR ---
Shift note Pt has been calm and cooperative during this shift. pt has been compliant with medication. pt has reported "hearing the devil" once today this nurse asked pt what the voice said and pt replied "that he wants my soul" this nurse asked if voices had told her to harm herself or other today , to which the pt replied "no they haven't" Pt also report having a bowel movement last night on 06/10/2021.
[2021-06-11 18:10] VITALS: BP 124/67
[2021-06-11] MEDS: traZODone 100 MG TABLET. PO SCH (20:15)
[2021-06-11] MEDS: MIRTAZAPINE 7.5 MG TABLET. PO SCH (20:15)
--- NOTE | 2021-06-11 23:04 | PN ---
DATE: 06/11/2021 ATTENDING PHYSICIAN: MAGO ALARCON MD SUBJECTIVE: The patient is calm. She has no new complaints. She is asymptomatic. She is cooperative. OBJECTIVE FINDINGS: VITAL SIGNS: Blood pressure this morning is 139/50 now, had been low the last 2 days. Pulse is 70 and regular. She is afebrile and her oxygen saturation is 98% on room air. HEENT: Head is without trauma. Pupils are reactive. Sclerae nonicteric. Oropharynx clear. NECK: Supple, no bruits. LUNGS: Otherwise clear. CARDIOVASCULAR: Regular heart tones. ABDOMEN: Soft. EXTREMITIES: Without edema. NEUROLOGIC: Slight confusion. ASSESSMENT: 1. A 60-year-old female from the [facility] who tested positive for COVID-19 coronavirus. She has no symptoms at this time. 2. Benign tremors related to Parkinson's disease. 3. Hypotension, now resolved with stopping beta blockers. 4. Frequent falls. 5. Frequent urinary tract infection. 6. Hyperlipidemia. PLAN: 1. We will continue to hold the beta blockade prescribed by Neurology. 2. Continue other meds. 3. Continue coronavirus precaution and quarantine. She can return to the [facility] after 10 days on the medical unit for quarantine. BILL/BLAINE DR: Ferny TID: [id number] CC: MYNOR FABIAN MD
--- NOTE | 2021-06-12 00:28 | NUR ---
Nursing Note The patient was sleeping upon shift change. The patient was pleasant during interactions with this nurse. The patient reports that she continues to hear voices throughout the day and they often tell her to do "bad" things. The patient reports that the voice is the Devil. The patient was compliant with her medications. The patient was alert to name, date, location and situation. The patient is currently sleeping in her room.
--- NOTE | 2021-06-12 05:28 | EKG ---
[address] [address] Test Date: 2021-06-07 Test Time: 10:57:48 Pat Name: MODESTA BLANCO Department: Room: 132 A Gender: F Parachute Mender: : 1960 Requested By: MYNOR FABIAN Order Number: [id number] Reading MD: Measurements Intervals [place] Rate: 174 P: CA: QRS: -26 QRSD: 250 T: -28 QT: 308 QTc: 531 Interpretive Statements IRREGULAR RHYTHM, NO P-WAVE FOUND VENTRICULAR PREMATURE COMPLEX(ES) LEFTWARD AXIS NON SPECIFIC INTRAVENTRICULAR BLOCK QRS(T) CONTOUR ABNORMALITY CONSISTENT WITH ANTERIOR INFARCT AGE UNDETERMINED CONSISTENT WITH INFEROLATERAL INFARCT AGE UNDETERMINED ABNORMAL ECG RI6.01 Compared to ECG 06/01/2021 05:13:03 Left-axis deviation now present Myocardial infarct finding now present Sinus rhythm no longer present
[2021-06-12 06:20] VITALS: BP 125/60
--- NOTE | 2021-06-12 06:55 | PDOC ---
Exam Note: Bran Note: This note is a late entry for 06/10/2021 covers elements not covered in my initial note. Subjective: Asked to review the patients psychotropics since she continues to have auditory hallucinations. Discussed with RAMON Herndon. Reportedly the patient states she is hearing voices, telling to hurt herself but she would not do that. She has expressed understanding that the voices are part of her imagination and not real though they seemed quite real to her. Nursing staff have been checking with the patient regularly and again no active suicidal ideation despite her ongoing auditory hallucinations. Review of Systems: No CV, , pulmonary, eye system symptoms per nursing review. Mental Status Exam: The patient is oriented to herself. Speech coherent. Abstraction fair. Computation impaired. Language function intact. Mood and affect withdrawn. Laboratory Data: Reviewed. Impression: Schizoaffective disorder bipolar type mixed with psychotic features. Major depressive disorder with psychotic features. Anxiety disorder unspecified. Impulse control disorder unspecified. Plan: The patient is currently on Geodon 80 mg twice a day. Continues to have the auditory hallucinations despite this. We will add Abilify 5 mg a day. She remains on Primidone, Sinemet, Lamictal, Remeron. Luvox 50 mg a day and we will increase this to 75 mg a day given some of her ongoing anxiety and obsessiveness. Assessment: Vital Signs/I&O: Vital Signs Date Time Temp Pulse Resp B/P (MAP) Pulse Ox O2 Delivery O2 Flow Rate FiO2 06/12/21 06:20 99.0 73 18 125/60 (81) 96 Room Air I & O 06/11/21 06/11/21 06/12/21 14:59 22:59 06:59 Intake Total 960 ml 600 ml 0 ml Balance 960 ml 600 ml 0 ml Current Medications: Meds: Current Medications Medications (Trade) Dose Ordered Sig/Ashley Route PRN Reason Start Time Stop Time Status Last Admin Dose Admin Vitamin D (Vitamin D3) 50,000 unit WEEKLY PO 06/11/21 09:00 06/11/21 07:51 Cyanocobalamin (Vitamin B-12) 1,000 mcg WEEKLY SQ 06/11/21 09:00 06/11/21 07:52 Fluvoxamine Maleate (Luvox) 75 mg DAILY PO 06/11/21 09:00 06/11/21 07:50 Aripiprazole (Abilify) 5 mg DAILY PO 06/11/21 09:00 06/11/21 07:50 I have reviewed the current psychotropics carefully including drug interactions. Risk benefit ratio favors no change other than as noted in my dictated progress note. Diagnosis: Problems: (1) Anxiety disorder, unspecified (2) Major depressive disorder with psychotic features (3) Bipolar disorder, current episode mixed, severe, with psychotic features (4) Psychotic disorder (5) Parkinson's disease (6) COVID-19 MYNOR FABIAN MD Jun 12, 2021 06:55
[2021-06-12] MEDS: CARBIDOPA/LEVODOPA 25/100MG TABLET PO SCH ×3 (08:05→21:23)
[2021-06-12] MEDS: ARIPiprazole 5 MG TABLET PO SCH (08:05)
[2021-06-12] MEDS: LACTOBACILLUS RHAMNOSUS GG 1 CAPSULE. PO SCH ×2 (08:05→21:22)
[2021-06-12] MEDS: lamoTRIgine 100 MG TABLET. PO SCH ×2 (08:05→21:23)
[2021-06-12] MEDS: PRIMIDONE 50 MG TABLET PO SCH ×3 (08:06→21:25)
[2021-06-12] MEDS: ZIPRASIDONE 80 MG CAPSULE. PO SCH ×2 (08:07→16:40)
--- NOTE | 2021-06-12 14:41 | NUR ---
MONE contacted pt dtr, Awilda, to discuss pt discharge for tomorrow. Awilda will check with her siblings to see if one of them can pick pt up. She is not sure if she can before 1800 but hopes one of them can mid-morning. MONE instructed her to contact the unit with a more definitive time is possible.
--- NOTE | 2021-06-12 14:47 | NUR ---
[facility] Social Work Discharge Planning Form Patient Name MODESTA BLANCO Admit Date: 04 June 2021 DISCHARGE PLAN Discharge Destination: Pt to discharge home with family and community services. Care Assessment: N/A Level II Assessment: N/A Transportation: Pt family to pick pt up; family to contact nursing to give a more specific time. Special Instructions/Notes: Please fax discharge orders, discharge medications and discharge summary to the fax number listed below. DISCHARGE TO HOME: Address: [address]; [place] [address] Responsible [employer]: Awilda Blanco Pharmacy: [facility] Contact Information: [address] [place] [address] Psychiatrist/Mental Health Follow Up: Josie López @ [facility] Contact Information: [address]; [place] [address] Appointment: 06/16 @ 0945 Primary Care Follow Up: [facility] Contact Information: [address]; [place], [place] [address] Appointment: Can make appointment for follow-up as needed.
--- NOTE | 2021-06-12 16:35 | NUR ---
SHIFT NOTE Pt resting comfortably throughout shift in room. No complaints of pain. Pt excited to return home to family tomorrow. alterations supervisor time pending per Judith in [facility]. Will continue to monitor. OLIVER, RN
[2021-06-12 17:18] VITALS: BP 104/71
[2021-06-12] MEDS: traZODone 100 MG TABLET. PO SCH (21:23)
[2021-06-12] MEDS: MIRTAZAPINE 7.5 MG TABLET. PO SCH (21:23)
[2021-06-13 06:10] VITALS: BP 127/66
--- NOTE | 2021-06-13 06:22 | NUR ---
Pt slept soundly through the night. She wakes easily and returns to sleep easily. She expressed she would not like to take a sleeping pill at home. She also mentioned she does not have many of her medications at home and that she will need refills. Pt encouraged to speak with the dr. before she leaves and note also left for following nurse. Pt also instructed that she may need to get those from her PCP. Will continue to monitor.
[2021-06-13] MEDS: LACTOBACILLUS RHAMNOSUS GG 1 CAPSULE. PO SCH (08:00)
[2021-06-13] MEDS: lamoTRIgine 100 MG TABLET. PO SCH (08:00)
[2021-06-13] MEDS: ARIPiprazole 5 MG TABLET PO SCH (08:00)
[2021-06-13] MEDS: PRIMIDONE 50 MG TABLET PO SCH (08:00)
[2021-06-13] MEDS: ZIPRASIDONE 80 MG CAPSULE. PO SCH (08:00)
[2021-06-13] MEDS: CARBIDOPA/LEVODOPA 25/100MG TABLET PO SCH (08:01)
--- NOTE | 2021-06-13 12:10 | NUR ---
discharge note Pt discharged at 1150 via ambulation accompanied by staff and family members. pt and family members given written and verbal instructions with verbal statement of understanding received.
--- NOTE | 2021-06-13 12:44 | DS ---
DATE OF DISCHARGE: 06/13/2021 ATTENDING PHYSICIAN: Dr. Concepcion. FINAL DISCHARGE DIAGNOSES: 1. A 60-year-old female from the [facility] with bipolar disorder. 2. Psychotic features with hearing voices. 3. Benign tremors. 4. Parkinson's disease. 5. Asymptomatic COVID-19 infection. 6. Frequent falls. 7. Hyperlipidemia. 8. Urinary tract infection. HISTORY AND PHYSICAL: The patient is a 60-year-old female originally from [place], [place]. She was [facility] the [facility] for psychotic features to her bipolar disorder. She also has Parkinson's disease. While on the behavioral unit, she had routine swabs for screening for coronavirus. She had a positive swab; however, no symptom. Lungs were clear. She was afebrile. She had no symptom whatsoever. She was sent to the medical floor for a 10-day quarantine and continuation of her psychiatric meds. PHYSICAL EXAMINATION: Please see the dictated note. PERTINENT LABORATORY AND X-RAY STUDIES: Admission hemoglobin was 11.4 g/dL, white count was 5600. Electrolytes within normal range. Creatinine 0.9 mg percent. Transaminases, liver panel, blood sugars were all normal. COURSE IN THE HOSPITAL: The patient was admitted to the medical floor. We had her under COVID precautions. She did undergo 10 full [address] of quarantine. Dr. Reese from the psychiatry service saw her in consultation here and continued her psychiatric medication. She did well. On the 10th hospital day here, her vital signs are stable. Her voices had diminished and she was doing quite well. At this time, she is discharged home with the following list of psychiatric meds. They include Sinemet 25/100 one tab t.i.d., vitamin B12 weekly, fluvoxamine 50 mg daily for obsessive compulsive disorder, Lamictal 100 mg b.i.d. for tremors, methyl salicylate, BenGay cream, Remeron 7.5 mg at bedtime, Mysoline 150 mg t.i.d. for tremors. Propranolol 120 mg has been held and stopped because of slow heart rate. Trazodone 100 mg at bedtime, Geodon total of 140 mg p.o. daily. The patient was then discharged from our hospital in stable condition with explicit drug and followup care. Total discharge time is 41 minutes. BILL/MONICA DR: Ferny TID: [id number] CC: MYNOR REESE MD, [facility]
== END 2021-06-13 11:50 | disposition home or self-care (01) | DRG 689 ==
LOC: LND 14:41
PROVIDERS: ADMIT Internal Medicine; ATTEND Internal Medicine
DX: N39.0 Urinary tract infection, site not specified (principal); U07.1 COVID-19; F31.64 Bipolar disorder, current episode mixed, severe, with psychotic features; E78.5 Hyperlipidemia, unspecified; F41.9 Anxiety disorder, unspecified; F63.9 Impulse disorder, unspecified; G20 Parkinson's disease; R29.6 Repeated falls; D64.9 Anemia, unspecified; I95.2 Hypotension due to drugs; T44.7X5A Adverse effect of beta-adrenoreceptor antagonists, initial encounter; Y92.239 Unspecified place in hospital as the place of occurrence of the external cause; Z79.899 Other long term (current) drug therapy
CPT/HCPCS: 36415; 80053; 85027; 85379; 86140; 93005; J3420; J7030